=== PATIENT | female | born 1955 | race Caucasian/White ===

== ENCOUNTER 2023-09-04 00:28 | Emergency (ER) | payer MEDICARE, BC ==
--- NOTE | 2023-09-04 00:59 | ED Physician Documentation ---
History of Present Illness - Stated complaint Stated Complaint: NECK PX - Chief complaint Chief Complaint: Trauma Hd/Nk - History obtained from History obtained from: Patient - Additonal information Additional information: 68yF with pmh dm, hld, hypothyroid, p/w progressive neck pain since thursday, worse on R >L without trauma or prior injury. denies numbness, weakness, vision changes, dizziness, hearing loss, nausea, or incoordination. she does state she has had headache on and off. denies fever or confusion PD PAST MEDICAL HISTORY - Past Medical History Cardiovascular: None Respiratory: None Endocrine/Autoimmune: Type 2 diabetes, HyPOthyroidism GI: Hepatitis, Cirrhosis : Renal insuffiency HEENT: None Derm: None - Past Surgical History Past Surgical History: Yes General: Cholecystectomy, Liver surgery - Present Medications Home Medications: Ambulatory Orders Medication Instructions Recorded Confirmed Atorvastatin Calcium [Lipitor] 10 mg PO DAILY 12/16/13 12/16/13 Gabapentin [Neurontin] 300 mg PO HS 12/16/13 12/16/13 Glimepiride [Amaryl] 4 mg PO DAILY 12/16/13 12/16/13 Insulin Glargine,Hum.rec.anlog 10 unit SQ DAILY #1 unit 12/16/13 [Lantus Solostar] Lancets 1 each MC QID #30 each 12/16/13 Levothyroxine Sodium [Synthroid] 125 mcg PO DAILY 12/16/13 12/16/13 Magnesium Oxide 400 mg PO TID 12/16/13 12/16/13 Sirolimus [Rapamune] 1 mg PO DAILY 12/16/13 12/16/13 ursodioL [Actigall] 300 mg PO BID 12/16/13 12/16/13 Oxycodone HCl/Acetaminophen 1 - 2 each PO Q6H PRN #20 tablet 12/31/19 [Percocet 5-325 mg Tablet] methocarbamoL [Robaxin] 500 mg PO Q6H #20 tablet 09/04/23 - Allergies Allergies/Adverse Reactions: Allergies Allergy/AdvReac Type Severity Reaction Status Date / Time No Known Drug Allergies Allergy Verified 09/04/23 00:44 - Social History Does the pt smoke?: No Smoking Status: Never smoker Does the pt drink ETOH?: No Does the pt have substance abuse?: No - Immunizations Immunizations are current?: Yes - POLST Patient has POLST: No PD ED PE NORMAL - Vitals Vital signs reviewed: Yes - General General: Alert and oriented X 3, No acute distress, Well developed/nourished, Other (tearful, elderly appearing) - HEENT HEENT: Atraumatic, PERRL, EOMI, Moist mucous membranes, Pharynx benign - Neck Neck: Supple, no meningeal sign, Other (BL neck ttp in muscle distribution) Results - Vitals Vitals: Vital Signs - 24 hr 09/04/23 00:40 Temperature 36.8 C Heart Rate 80 Respiratory 18 Rate Blood Pressure 109/85 H O2 Saturation 100 Oxygen O2 Source Room air PD Medical Decision Making - ED course ED course: 68yF p/w BL neck pain, right > left for past four days, progressively worsening and refractory to home tylenol. doubt meningitis given no fevers, nuchal rigidity or confusion/obtundation. doubt vertebral dissection given no neuro symptoms. likely muscle strain given muscle distribution of tenderness on exam. IM dilaudid and PO robaxin provided to good effect. plan to send rx to her pharmacy ([facility]). return precautions given. Departure - Departure Disposition: Home, Self Care Clinical Impression: Neck pain Condition: Stable Instructions: ED Neck Pain No Trauma Prescriptions: methocarbamoL [Robaxin] 500 mg PO Q6H #20 tablet Comments: You were seen in the emergency department for medical evaluation of neck pain. Prescription sent electronically to [email or web address]. Please follow-up with your primary care provider and return to the emergency department if you have any new or worsening symptoms or other concerns. Forms: PCP List
[2023-09-04] MEDS: HYDROmorphone 1 MG/ML CARPUJECT IM STA (01:05)
[2023-09-04] MEDS: methocarbamoL 500 MG TABLET PO STA (01:07)
[2023-09-04 01:46] VITALS: BP 139/73; O2SAT 96
== END 2023-09-04 01:43 | disposition home or self-care (01) ==
LOC: ED 00:28
DX: M54.2 Cervicalgia (principal); E11.9 Type 2 diabetes mellitus without complications; Z79.4 Long term (current) use of insulin
CPT/HCPCS: 96372; 99283; A9270; J1170

== ENCOUNTER 2025-04-21 16:12 | Inpatient (IN) ==
--- NOTE | 2025-04-21 17:01 | ED Physician Documentation ---
History of Present Illness Stated complaint Stated Complaint: RT LEG PX/REDNESS, N/V/D Chief complaint Chief Complaint: Abd Pain History obtained from History obtained from: Patient History of Present Illness Pain level max: 9 Pain level now: 7 Additonal information Additional information: Patient is a 70-year-old female who presents to the emergency department with a right leg that is red, swollen and hot. Noticed this morning. Has had vomiting and diarrhea for the past 2 days. Chills but no noted fevers at home. Worse with walking, better with rest. No recent travel. No recent antibiotics. History of a remote liver transplant about 17 years ago. Has not had similar symptoms previously. She is still on her Rapamune at home. Also on Synthroid and atorvastatin and gabapentin. Also on glimepiride. Review of Systems Constitutional Reports: Chills; Denies: Fever Cardiovascular Denies: chest pain or palpitations Respiratory Denies: Cough Gastrointestinal Reports: Nausea, Vomiting and Diarrhea; Denies: Akshat blood emesis, Rectal bleeding, Melena or Blood in stool Meds/Allgy Home Medications Ambulatory Orders Medication Instructions Recorded Confirmed atorvastatin 10 mg tablet (Lipitor) 10 mg PO DAILY 12/16/13 gabapentin 300 mg capsule 300 mg PO HS 12/16/13 glimepiride 4 mg tablet (Amaryl) 4 mg PO DAILY 4 12/16/13 insulin glargine 100 unit/mL (3 10 unit (0.1 mL) SQ DA URIEL #1 unit 12/16/13 mL) subcutaneous pen (Lantus Solostar U-100 Insulin) lancets 21 gauge #30 ea 12/16/13 levothyroxine 125 mcg tablet 125 mcg PO DAILY 12/16/13 12/16/13 (Synthroid) magnesium oxide 400 mg (241.3 mg 400 mg PO TID 4 12/16/13 magnesium) tablet sirolimus 1 mg tablet (Rapamune) 1 mg PO DAILY 4 12/16/13 ursodiol 300 mg capsule (Actigall) 300 mg PO BID 12/1612/16/13 oxycodone-acetaminophen 5 mg-325 1 - 2 ea PO Q6H PRN p ain #20 tabs 12/30/20 mg tablet (Percocet) methocarbamol 500 mg tablet 500 mg PO Q6H #20 tabs 10/22 Allergies Allergies Allergy/AdvReac Type Severity Reaction Status Date / Time No Known Drug Allergies Allergy Verified 04/21/25 16:31 PFSH Active Problems All Active Problems (Updated 04/21/25 @ 18:56 by Jesus Amador MD) History of liver transplant (Acute) Diarrhea (Acute) Chills (Acute) Cellulitis (Acute) Surgical History Surgical History (Updated 04/21/25 @ 18:56 by Jesus Amador MD) Liver transplant recipient Social History Social History Do you feel safe in your home environment?: Yes History of physical, verbal, emotional, or financial abuse?: No POLST Patient has POLST: No Exam Exam Vital Signs: Vital Signs x48h Temp Pulse Resp BP Pulse Ox 04/21/25 17:06 36.8 C 04/21/25 16:31 36.8 C 101 H 18 107/91 H 95 Constitutional normal general appearance and no apparent distress HENMT oropharynx normal moist mucous membranes Eyes PERRL Neck/C-Spine visual inspection normal Respiratory breath sounds equal bilaterally, normal respiratory effort and clear to auscultation bilaterally Cardiovascular normal heart rate noted and regular rhythm noted Gastrointestinal abdomen normal to inspection, abdomen soft to palpation, nontender to palpation and nondistended Genitourinary no CVA tenderness Extremities Right lower extremity is erythematous, swollen, warm to the touch and painful from the knee down to the foot. No crepitus. No drainage Neurology speech normal Psychiatry mental status grossly normal and oriented x3 Skin skin color normal Results Vitals Vitals: Vital Signs - 24 hr 04/21/25 16:31 04/21/25 17:06 Temperature 36.8 C 36.8 C Temperature Source Temporal Artery Scan Oral Pulse Rate 101 H Respiratory Rate 18 Blood Pressure 107/91 H O2 Saturation 95 O2 Source Room air Pain Intensity 10 Oxygen O2 Source Room air Labs Labs: Laboratory Tests 04/21/25 04/21/25 17:08 17:19 WBC 12.3 H RBC 4.73 Hgb 12.8 Hct 41.0 MCV 86.7 MCH 27.1 MCHC 31.2 L RDW 14.2 Plt Count 229 MPV 9.2 Neut # (Auto) 9.8 H Lymph # (Auto) 1.7 Sutter # (Auto) 0.6 Eos # (Auto) 0.0 Baso # (Auto) 0.1 Absolute Nucleated RBC 0.00 Nucleated RBC % 0.0 Sodium 131 L Potassium 3.7 Chloride 98 L Carbon Dioxide 24 Anion Gap 9.0 BUN 30 H Creatinine 1.5 H Estimated GFR (MDRD) 34 L Glucose 131 H Lactic Acid < 0.2 L Calcium 9.7 Total Bilirubin 0.9 AST 18 ALT 14 Alkaline Phosphatase 60 Total Protein 7.8 Albumin 4.2 Globulin 3.6 Albumin/Globulin Ratio 1.2 Lipase 15 Nasal Adenovirus (PCR) NOT DETECTED Nasal B. parapertussis DNA (PCR) NOT DETECTED Nasal Coronavir 229E PCR NOT DETECTED Nasal Coronavir HKU1 PCR NOT DETECTED Nasal Coronavir NL63 PCR NOT DETECTED Nasal Coronavir OC43 PCR NOT DETECTED Nasal Enterovir/Rhinovir PCR NOT DETECTED Nasal Influenza B PCR NOT DETECTED Nasal Influenza A PCR NOT DETECTED Nasal Parainfluen 1 PCR NOT DETECTED Nasal Parainfluen 2 PCR NOT DETECTED Nasal Parainfluen 3 PCR NOT DETECTED Nasal Parainfluen 4 PCR NOT DETECTED Nasal RSV (PCR) NOT DETECTED Nasal B.pertussis DNA PCR NOT DETECTED Nasal C.pneumoniae (PCR) NOT DETECTED Shahid Human Metapneumo PCR NOT DETECTED Nasal M.pneumoniae (PCR) NOT DETECTED Nasal SARS-CoV-2 (PCR) NOT DETECTED PD Medical Decision Making ED course Complexity details: reviewed results, re-evaluated patient, considered differential and d/w patient ED course: Patient with severe diarrhea. No acute findings on chest x-ray. Laboratory testing shows an elevated white blood cell count. Has significant cellulitis of the right lower extremity. C. difficile is pending at the time of signout. CT abdomen pelvis was also performed and is pending at the time of signout. Antibiotics held until the results of the C. difficile testing. Patient will likely need admission for the cellulitis with leukocytosis given her immunocompromise status. Blood cultures drawn. Patient was signed out to Dr. Guerrero, see his note for final disposition. This document was made in part using voice recognition software. While efforts are made to proofread this document, sound alike and grammatical errors may occur. Discharge Plan Discharge Clinical Impression: Chills, History of liver transplant Cellulitis Qualifiers: Site of cellulitis: unspecified site Qualified Code(s): L03.90 - Cellulitis, unspecified Diarrhea Qualifiers: Diarrhea type: unspecified type Qualified Code(s): R19.7 - Diarrhea, unspecified Prescriptions: No Action sirolimus [Rapamune] 1 MG tablet 1 mg PO DAILY glimepiride [Amaryl] 4 MG tablet 4 mg PO DAILY atorvastatin [Lipitor] 10 MG tablet 10 mg PO DAILY levothyroxine [Synthroid] 125 MCG tablet 125 mcg PO DAILY magnesium oxide 400 MG tablet 400 mg PO TID ursodiol [Actigall] 300 MG capsule 300 mg PO BID gabapentin 300 MG capsule 300 mg PO HS insulin glargine [Lantus Solostar U-100 Insulin] 100 UNIT/ML insulin pen 10 unit SQ DAILY Qty: 1 0RF (DME) lancets 1 EACH misc 1 ea miscellaneous QID Qty: 30 0RF oxycodone-acetaminophen [Percocet] 1 EACH tablet 1 - 2 ea PO Q6H PRN (Reason: pain) Qty: 20 0RF methocarbamol 500 MG tablet 500 mg PO Q6H Qty: 20 0RF Print Language: Kyrgyz Stand Alone Forms: PCP List
[2025-04-21] MEDS: SODIUM CHLORIDE 0.9% 1,000 ML IV STA ×2 (17:17)
[2025-04-21] MEDS: ONDANSETRON 4 MG/2 ML VIAL IVP STA (17:19)
[2025-04-21 17:26] LABS: HCT - HEMATOCRIT 41.0 % (37.0-47.0); HGB - HEMOGLOBIN 12.8 g/dL (12.0-16.0); MEAN PLATELET VOLUME 9.2 fL (7.9-10.8); NRBC ABSOLUTE COUNT (AUTO) 0.00 x10^3/uL; NUCLEATED RED BLOOD CELLS AUTO 0.0 /100WBC; PLT - PLATELET COUNT 229 10^3/uL (130-450); RED CELL DISTRIBUTION WIDTH 14.2 % (12.0-15.0)
[2025-04-21 17:34] LABS: ALT ALANINE AMINOTRANSFERASE 14.0 IU/L (10-60); AST ASPARTATE AMINOTRANSFERASE 18.0 IU/L (10-42); BUN - BLOOD UREA NITROGEN 30.0 mg/dL (6-20); CARBON DIOXIDE - CO2 24.0 mmol/L (21-32); CREATININE 1.5 mg/dL (0.6-1.3); GFR - MDRD 34.0 (>89)
--- NOTE | 2025-04-21 18:20 | XRAY Report ---
PROCEDURE: XR Chest 1V INDICATIONS: fever TECHNIQUE: One view of the chest was acquired. COMPARISON: None. FINDINGS: Surgical changes and devices: None. Lungs and pleura: No pleural effusions or pneumothorax. No consolidation. Mediastinum: Mediastinal contours appear normal. Heart size is normal. Bones and chest wall: Mild multilevel degenerative disc disease present. No suspicious bony lesions. Overlying soft tissues appear unremarkable. IMPRESSION: No acute cardiopulmonary process. Reviewed by: Marta Randhawa MD on 04/21/2025 6:17 PM PST Approved by: Marta Randhawa MD on 04/21/2025 6:17 PM PST Station ID: [id number]
[2025-04-21 18:27] LABS: B. PARAPERTUSSIS- RESP PCR PAN NOT DETECTED; B. PERTUSSIS- RESP PCR PANEL NOT DETECTED; C. PNEUMONIAE- RESP PCR PANEL NOT DETECTED; CORONAVIRUS 229E-RESP PCR NOT DETECTED; CORONAVIRUS HKU1-RESP PCR NOT DETECTED; CORONAVIRUS NL63-RESP PCR NOT DETECTED; CORONAVIRUS OC43-RESP PCR NOT DETECTED; HUMAN METAPNEUMOVIRUS NOT DETECTED; INFLUENZA A- RESP PCR PANEL NOT DETECTED; INFLUENZA B - RESP PCR PANEL NOT DETECTED; M. PNEUMONIAE- RESP PCR PANEL NOT DETECTED; PARAINFLUENZA VIRUS 1 NOT DETECTED; PARAINFLUENZA VIRUS 2 NOT DETECTED; PARAINFLUENZA VIRUS 4 NOT DETECTED; RHINOVIRUS/ENTEROVIRUS NOT DETECTED; RSV- RESP PCR PANEL NOT DETECTED; SARS-CoV-2 -RESP PCR PANEL NOT DETECTED
--- NOTE | 2025-04-21 19:20 | CT Report ---
PROCEDURE: CT Abdomen/Pelvis W INDICATIONS: vomting, diarrhea CONTRAST: OMNI 300 100 ML TECHNIQUE: After the administration of intravenous contrast, a CT scan of the abdomen and pelvis was performed. Images were recorded and evaluated at appropriate window settings. Reformats: coronal and sagittal. For radiation dose reduction, the following was used: automated exposure control, adjustment of mA and/or kV according to patient size. COMPARISON: None. FINDINGS: Image quality: Diagnostic. Lower chest: Unremarkable. Small hiatal hernia. Liver: Hepatic steatosis. Gallbladder: Surgically absent. Biliary tree: No intrahepatic or extrahepatic dilation, accounting for age. Spleen: No splenomegaly. Pancreas: No pancreatic ductal dilation. Adrenals: No adrenal nodule. Kidneys and ureters: No hydronephrosis. No renal cystic lesion which requires follow up. No solid mass. Ureters are normal in course and caliber. Stomach, bowel and peritoneum: No gastric or small bowel dilation. No abnormal wall thickening. No pathologic free fluid. No evidence for small bowel obstruction. Normal appendix. Lymph nodes: No central or retroperitoneal adenopathy. Vessels: No infrarenal aortic aneurysm. Patent portal vein. Multiple perisplenic varices. PELVIS Reproductive organs: Unremarkable. Bladder: No abnormal wall thickening. Pelvic lymph nodes: No pelvic adenopathy by size criteria. Bones: No aggressive osseous abnormality. No acute compression fracture. Multilevel spondylosis. Other: Multiple fat-containing ventral abdominal wall hernias without acute inflammation. Findings are noted just inferior to the level of the liver. Mild skin thickening and underlying subcu soft tissue stranding of the right lower abdomen. This may be related to injection sites. No evidence for organized fluid collection. IMPRESSION: CT abdomen and pelvis without acute abnormalities to explain patient's symptoms. No evidence for bowel obstruction. Normal appendix. Multiple fat-containing ventral abdominal wall hernias without acute inflammation. Mild skin thickening and subcutaneous soft tissue stranding of the right lower abdomen possibly related to injection sites versus cellulitis. No evidence for organized fluid collection. Other chronic findings as above. Reviewed by: Eldon Salazar MD on 04/21/2025 7:17 PM PST Approved by: Eldon Salazar MD on 04/21/2025 7:17 PM PST Station ID: [id number]
[2025-04-21] MEDS ORDERED: VANCOMYCIN 1 GM VIAL ONE (19:23)
[2025-04-21] MEDS: VANCOMYCIN INJ 1.5 GM in SODIUM CHLORIDE 0.9% 500 ML IV STA (19:25)
[2025-04-21] MEDS: AMPICILLIN/SULBACTAM 1.5 GM in SODIUM CHLORIDE 0.9% MINIBAG 100 ML IV STA (19:25)
[2025-04-21] MEDS: ACETAMINOPHEN 160 MG/5 ML SUSP UDC PO STA (20:59)
[2025-04-21] MEDS: ACETAMINOPHEN 325 MG TABLET PO STA (21:00)
--- OUTSIDE RECORDS SUMMARY | 2025-04-21 22:29 | EXTERNAL MEDICAL SUMMARY RPT | Continuity of Care Document ---
Author Organization [facility] Address [address] [address] Phone Results/Labs test date facility value unit notes Result panel 1 C DIFF PCR 2025-04-21 17:03 [facility] NEGATIVE (missin g) (missing) Result panel 2 LACTIC ACID, VENOUS 2025-04-21 17:08 [facility] < 0.2 mmol/l N As of November 2022 testing method has changed, this may include reference ranges. NUCLEATED RED BLOOD CELLS AUTO 2025-04-21 17:08 [facility] 0.0 /100wbc (missing) EOSINOPHILS # (AUTO) 2025-04-21 17:08 [facility] 0.0 10 3/ul (missing) NRBC ABSOLUTE COUNT (AUTO) 2025-04-21 17:08 [facility] 0.00 x10 3/ul (missing) BASOPHILS # (AUTO) 2025-04-21 17:08 [facility] 0.1 10 3/ul (missing) MONOCYTES # (AUTO) 2025-04-21 17:08 [facility] 0.6 10 3/ul (missing) BILIRUBIN,TOTAL 2025-04-21 17:08 [facility] 0.9 mg/dl As of November 2022 testing method has changed, this may include reference ranges. ALBUMIN/GLOBULIN RATIO 2025-04-21 17:08 [facility] 1.2 (missing) (missing) CREATININE 2025-04-21 17:08 [facility] 1.5 mg/dl As of November 2022 testing method has changed, this may include reference ranges. LYMPHOCYTES # (AUTO) 2025-04-21 17:08 [facility] 1.7 10 3/ul (missing) WHITE BLOOD COUNT 2025-04-21 17:08 [facility] 12.3 x10 3/ul (missing) HGB - HEMOGLOBIN 2025-04-21 17:08 [facility] 12.8 g/dl (missing) GLUCOSE 2025-04-21 17:08 [facility] 131 mg/dl As of November 2022 testing method has changed, this may include reference ranges. SODIUM 2025-04-21 17:08 [facility] 131 mmol/l (missing) ALT ALANINE AMINOTRANSFERASE 2025-04-21 17:08 [facility] 14 iu/l As of November 2022 testing method has changed, this may include reference ranges. RED CELL DISTRIBUTION WIDTH 2025-04-21 17:08 [facility] 14.2 % (missing) LIPASE 2025-04-21 17:08 [facility] 15 u/l As of November 2022 testing method has changed, this may include reference ranges. AST ASPARTATE AMINOTRANSFERASE 2025-04-21 17:08 [facility] 18 iu/l As of November 2022 testing method has changed, this may include reference ranges. PLT - PLATELET COUNT 2025-04-21 17:08 [facility] 229 10 3/ul (missing) CARBON DIOXIDE - CO2 2025-04-21 17:08 [facility] 24 mmol/l As of November 2022 testing method has changed, this may include reference ranges. MEAN CORPUSCULAR HEMOGLOBIN 2025-04-21 17:08 [facility] 27.1 pg (missing) GLOBULIN 2025-04-21 17:08 [facility] 3.6 g/dl (missing) POTASSIUM 2025-04-21 17:08 [facility] 3.7 mmol/l As of November 2022 testing method has changed, this may include reference ranges. BUN - BLOOD UREA NITROGEN 2025-04-21 17:08 [facility] 30 mg/dl As of November 2022 testing method has changed, this may include reference ranges. MEAN CORPUSCULAR HGB CONC 2025-04-21 17:08 [facility] 31.2 g/dl (missing) GFR - MDRD 2025-04-21 17:08 [facility] 34 (missing) The IDMS-traceable MDRD Study Equation has been validated extensively in and populations between the ages of 18 and 70 with impaired kidney function (eGFR < 60 mL/min/1.73m2) and has shown good performance for patients with all common causes of kidney disease. Although this equation has not been validated for patients older than 70, an MDRD-derived eGFR may still be a useful tool for providers caring for patients older than 70. References: http://www.nkdep. nih.gov/lab-evalu ation/gfr/creatin ine-stand ardization, last updated July 2011. ALBUMIN 2025-04-21 17:08 [facility] 4.2 g/dl As of November 2022 testing method has changed, this may include reference ranges. RED BLOOD COUNT 2025-04-21 17:08 [facility] 4.73 10 6/ul (missing) HCT - HEMATOCRIT 2025-04-21 17:08 [facility] 41.0 % (missing) ALKALINE PHOSPHATASE 2025-04-21 17:08 [facility] 60 iu/l As of November 2022 testing method has changed, this may include reference ranges. TOTAL PROTEIN 2025-04-21 17:08 [facility] 7.8 g/dl As of November 2022 testing method has changed, this may include reference ranges. MEAN CORPUSCULAR VOLUME 2025-04-21 17:08 [facility] 86.7 fl (missing) ANION GAP 2025-04-21 17:08 [facility] 9.0 (missing) (missing) MEAN PLATELET VOLUME 2025-04-21 17:08 [facility] 9.2 fl (missing) CALCIUM 2025-04-21 17:08 [facility] 9.7 mg/dl As of November 2022 testing method has changed, this may include reference ranges. NEUTROPHILS # (AUTO) 2025-04-21 17:08 [facility] 9.8 10 3/ul (missing) CHLORIDE 2025-04-21 17:08 [facility] 98 mmol/l As of November 2022 testing method has changed, this may include reference ranges. Result panel 3 SARS-CoV-2 -RESP PCR PANEL 2025-04-21 17:19 [facility] NOT DETECTED (missing) A negative test result for this test indicates that SARS-CoV-2 RNA was not present in the specimen above the limit of detection. Testing performed on the [employer] RP2.1 Panel, a multiplexed nucleic acid repiratory panel. Negative results do not preclude infection with SARS-CoV-2 virus and should not be the sole basis of a patient management decision. In some patients repeat testing at various time points may be necessary for virus detection. False-negative results may arise from improper sample collection, degradation of viral RNA during shipping or storage, the presence of PCR inhibitors, and/or mutation in the SARS-CoV-2 virus. INFLUENZA A- RESP PCR PANEL 2025-04-21 17:19 [facility] NOT DETECTED (missing) Influenza A including subtypes H1, H3, and H1-2009 not detected by the [employer] RP2.1 Panel, a multiplexed nucleic acid test intended for the simultaneous qualitative detection and differentiation of nucleic acids from multiple viral and bacterial respiratory organisms. B. PARAPERTUSSIS- RESP PCR HAJI 2025-04-21 17:19 [facility] NOT DETECTED (missing) Negative results for this organism do not preclude infection with this organism and may require additional laboratory testing (e.g., bacterial and viral culture, immunofluorescence, and radiography) when evaluating a patient with possible respiratory tract infection. B. PERTUSSIS- RESP PCR PANEL 2025-04-21 17:19 [facility] NOT DETECTED (missing) Negative results for this organism do not preclude infection with this organism and may require additional laboratory testing (e.g., bacterial and viral culture, immunofluorescence, and radiography) when evaluating a patient with possible respiratory tract infection. C. PNEUMONIAE- RESP PCR PANEL 2025-04-21 17:19 [facility] NOT DETECTED (missing) Negative results for this organism do not preclude infection with this organism and may require additional laboratory testing (e.g., bacterial and viral culture, immunofluorescence, and radiography) when evaluating a patient with possible respiratory tract infection. M. PNEUMONIAE- RESP PCR PANEL 2025-04-21 17:19 [facility] NOT DETECTED (missing) Negative results for this organism do not preclude infection with this organism and may require additional laboratory testing (e.g., bacterial and viral culture, immunofluorescence, and radiography) when evaluating a patient with possible respiratory tract infection. CORONAVIRUS 229E-RESP PCR 2025-04-21 17:19 [facility] NOT DETECTED (missing) Negative results in the setting ofa respiratory illness may be due to infection with pathogens not detected by this test, or lower respiratory tract infection that may not be detected by nasopharyngeal specimen. CORONAVIRUS HKU1-RESP PCR 2025-04-21 17:19 [facility] NOT DETECTED (missing) Negative results in the setting ofa respiratory illness may be due to infection with pathogens not detected by this test, or lower respiratory tract infection that may not be detected by nasopharyngeal specimen. CORONAVIRUS AZ33-ZQGT PCR 2025-04-21 17:19 [facility] NOT DETECTED (missing) Negative results in the setting ofa respiratory illness may be due to infection with pathogens not detected by this test, or lower respiratory tract infection that may not be detected by nasopharyngeal specimen. CORONAVIRUS NH83-HZSC PCR 2025-04-21 17:19 [facility] NOT DETECTED (missing) Negative results in the setting ofa respiratory illness may be due to infection with pathogens not detected by this test, or lower respiratory tract infection that may not be detected by nasopharyngeal specimen. HUMAN METAPNEUMOVIRUS 2025-04-21 17:19 [facility] NOT DETECTED (missing) Negative results in the setting ofa respiratory illness may be due to infection with pathogens not detected by this test, or lower respiratory tract infection that may not be detected by nasopharyngeal specimen. INFLUENZA B - RESP PCR PANEL 2025-04-21 17:19 [facility] NOT DETECTED (missing) Negative results in the setting ofa respiratory illness may be due to infection with pathogens not detected by this test, or lower respiratory tract infection that may not be detected by nasopharyngeal specimen. PARAINFLUENZA VIRUS 1 2025-04-21 17:19 [facility] NOT DETECTED (missing) Negative results in the setting ofa respiratory illness may be due to infection with pathogens not detected by this test, or lower respiratory tract infection that may not be detected by nasopharyngeal specimen. PARAINFLUENZA VIRUS 2 2025-04-21 17:19 [facility] NOT DETECTED (missing) Negative results in the setting ofa respiratory illness may be due to infection with pathogens not detected by this test, or lower respiratory tract infection that may not be detected by nasopharyngeal specimen. PARAINFLUENZA VIRUS 3 2025-04-21 17:19 [facility] NOT DETECTED (missing) Negative results in the setting ofa respiratory illness may be due to infection with pathogens not detected by this test, or lower respiratory tract infection that may not be detected by nasopharyngeal specimen. PARAINFLUENZA VIRUS 4 2025-04-21 17:[address] [facility] NOT DETECTED (missing) Negative results in the setting ofa respiratory illness may be due to infection with pathogens not detected by this test, or lower respiratory tract infection that may not be detected by nasopharyngeal specimen. RHINOVIRUS/ENTEROVI REJI 2025-04-21 17:[address] [facility] NOT DETECTED (missing) Negative results in the setting ofa respiratory illness may be due to infection with pathogens not detected by this test, or lower respiratory tract infection that may not be detected by nasopharyngeal specimen. RSV- RESP PCR PANEL 2025-04-21 17:[address] [facility] NOT DETECTED (missing) Negative results in the setting ofa respiratory illness may be due to infection with pathogens not detected by this test, or lower respiratory tract infection that may not be detected by nasopharyngeal specimen. ADENOVIRUS - RESP PCR PANEL 2025-04-21 17:[address] [facility] NOT DETECTED (missing) YES Negative results in the setting ofa respiratory illness may be due to infection with pathogens not detected by this test, or lower respiratory tract infection that may not be detected by nasopharyngeal specimen. Social History date description facility
--- NOTE | 2025-04-21 22:34 | HISTORY & PHYSICAL EXAMINATION ---
Chief Complaint Chief Complaint Chief Complaint: Vomiting, diarrhea, redness in right leg History of Present Illness History of Present Illness HPI Comment/Other: 70 Y old female with PMH Chronic hepatitis C, Cirrhosis of liver s/p liver transplant, DM type 2, hypothyroidism, hyperlipidemia, presented to the ER due to nausea, vomiting, diarrhea for 3 days. C/O abdominal cramps. Pt also c/o right leg redness and swelling which started yesterday. 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 C diff neg CT abdomen /pelvis showed no acute abnormalities CXR neg In ER, pt was given unasyn and vanco Pt is admitted due to right leg cellulitis, nausea, vomiting, diarrhea , gastroenteritis, dehydration, JESSICA Review of Systems Status of ROS: 10 or more systems reviewed and unremarkable except as noted in history and below PFSH Active Problems All Active Problems (Updated 04/21/25 @ 22:26 by ) History of liver transplant (Acute) Diarrhea (Acute) Chills (Acute) Cellulitis (Acute) Surgical History Surgical History (Updated 04/21/25 @ 18:56 by Jesus Amador MD) Liver transplant recipient Social History Social History Do you feel safe in your home environment?: Yes History of physical, verbal, emotional, or financial abuse?: No POLST Patient has POLST: No Meds/Allgy Home Medications Ambulatory Orders Medication Instructions Recorded Confirmed atorvastatin 10 mg tablet (Lipitor) 10 mg PO DAILY 12/16/13 gabapentin 300 mg capsule 300 mg PO HS 12/16/13 glimepiride 4 mg tablet (Amaryl) 4 mg PO DAILY 4 12/16/13 insulin glargine 100 unit/mL (3 10 unit (0.1 mL) SQ DA URIEL #1 unit 12/16/13 mL) subcutaneous pen (Lantus Solostar U-100 Insulin) lancets 21 gauge #30 ea 12/16/13 levothyroxine 125 mcg tablet 125 mcg PO DAILY 12/16/13 12/16/13 (Synthroid) magnesium oxide 400 mg (241.3 mg 400 mg PO TID 4 12/16/13 magnesium) tablet sirolimus 1 mg tablet (Rapamune) 1 mg PO DAILY 4 12/16/13 ursodiol 300 mg capsule (Actigall) 300 mg PO BID 12/1612/16/13 oxycodone-acetaminophen 5 mg-325 1 - 2 ea PO Q6H PRN p ain #20 tabs 12/31/19 mg tablet (Percocet) methocarbamol 500 mg tablet 500 mg PO Q6H #20 tabs 10/22 Allergies Allergies Allergy/AdvReac Type Severity Reaction Status Date / Time No Known Drug Allergies Allergy Verified 04/21/25 16:31 Exam Exam Vital Signs: Vital Signs x48h Temp Pulse Resp BP Pulse Ox 04/21/25 21:00 36.8 C 91 20 104/89 94 04/21/25 19:37 96 16 154/73 H 97 04/21/25 17:06 36.8 C 04/21/25 16:31 36.8 C 101 H 18 107/91 H 95 Constitutional normal general appearance HENMT normocephalic Eyes PERRL Chest inspection of chest normal Respiratory breath sounds equal bilaterally Cardiovascular normal heart rate noted Gastrointestinal abdomen normal to inspection Extremities Redness and swelling in right leg Neurology no focal motor deficit noted Skin Redness and swelling in right leg Conclusion/Plan Problem List (1) Cellulitis: Plan: A: Cellulitis of right leg Acute gastroenteritis Dehydration JESSICA DM type 2 Hyperlipidemia Hypothyroidiosm Chronic hepatitis C H/O liver cirrhosis s/p liver transplant Plan: Admit to med surg with tele Follow cultures Strat zosyn and vanco Repeat CBC, CMP in am Start NS @ 100 cc/h Cont lantus 30 units bid Start insulin sliding scale Cont levothyroxine DVT prophylaxic: Heparin sq Full code Pt is admitted as inpatient as more than 2 midnight stay is expected Qualifiers: Site of cellulitis: unspecified site Qualified Code(s): L03.90 - Cellulitis, unspecified Lab Results 04/21/25 17:08 04/21/25 17:08
--- NOTE | 2025-04-21 22:53 | ED Physician Documentation ---
ED Addendum Addendum Addendum: This patient was handed off to me at [address] Adam Amador. I followed up on her CT imaging which showed no concerning features of in her abdomen that may contribute to her story tonight. C. difficile testing negative. I gave her initial dose of Vanco and Unasyn, and ultimately she was admitted to the hospitalist team for observation, further treatment of her cellulitis given her immunocompromise status. Discharge Plan Discharge Patient Disposition: [facility] DC/Xfer Condition: Stable Clinical Impression: Chills, History of liver transplant Cellulitis Qualifiers: Site of cellulitis: unspecified site Qualified Code(s): L03.90 - Cellulitis, unspecified Diarrhea Qualifiers: Diarrhea type: unspecified type Qualified Code(s): R19.7 - Diarrhea, unspecified
[2025-04-22] MEDS: PIPERACILLIN/TAZOBACTAM 3.375 GM in SODIUM CHLORIDE 0.9% MINIBAG 100 ML IV SCH ×3 (00:12→20:53)
[2025-04-22] MEDS ORDERED: SODIUM CHLORIDE FLUSH 0.9% 10 ML SYRINGE IVP PRN (01:20)
[2025-04-22] MEDS: SODIUM CHLORIDE 0.9% 1,000 ML IV SCH (01:21)
[2025-04-22] MEDS: SODIUM CHLORIDE FLUSH 0.9% 10 ML SYRINGE IVP SCH (01:22)
[2025-04-22 03:54] LABS: GLUCOSE, URINE (UA) NEGATIVE (NEGATIVE); KETONES,URINE (UA) NEGATIVE (NEGATIVE); OCCULT BLOOD,URINE MODERATE (NEGATIVE)
[2025-04-22 03:55] LABS: SQUAMOUS EPITHELIAL CELL,UR RARE Squamous (<= Few)
[2025-04-22] MEDS ORDERED: MORPHINE 2 MG/ML CARPUJECT ONE (06:01)
[2025-04-22] MEDS: MORPHINE 2 MG/ML CARPUJECT IVP STA (06:05)
[2025-04-22] MEDS: LEVOTHYROXINE 88 MCG TABLET PO SCH (06:16)
[2025-04-22 06:33] LABS: HCT - HEMATOCRIT 39.1 % (37.0-47.0); HGB - HEMOGLOBIN 11.9 g/dL (12.0-16.0); MEAN PLATELET VOLUME 9.3 fL (7.9-10.8); NRBC ABSOLUTE COUNT (AUTO) 0.00 x10^3/uL; NUCLEATED RED BLOOD CELLS AUTO 0.0 /100WBC; PLT - PLATELET COUNT 202 10^3/uL (130-450); RED CELL DISTRIBUTION WIDTH 14.3 % (12.0-15.0)
[2025-04-22 06:49] LABS: ALT ALANINE AMINOTRANSFERASE 12.0 IU/L (10-60); AST ASPARTATE AMINOTRANSFERASE 19.0 IU/L (10-42); BUN - BLOOD UREA NITROGEN 24.0 mg/dL (6-20); CARBON DIOXIDE - CO2 23.0 mmol/L (21-32); CREATININE 1.4 mg/dL (0.6-1.3); GFR - MDRD 37.0 (>89)
[2025-04-22] MEDS: INSULIN GLARGINE-YFGN 300 UNIT/3 ML PEN SUBQ SCH (09:21)
[2025-04-22] MEDS: HEPARIN 5,000 UNIT/ML VIAL SUBQ SCH (09:22)
[2025-04-22] MEDS: INSULIN LISPRO 300 UNIT/3 ML PEN SUBQ SCH (09:27)
[2025-04-22] MEDS: oxyCODONE 5 MG TABLET PO PRN (09:40)
--- NOTE | 2025-04-22 10:03 | PHARMACY PROGRESS NOTE ---
Best Possible Medication History Admit Date and Time: 04/21/252208 Home Medications Medication Instructions Recorded Confirmed Type lancets 21 gauge #30 ea 12/16/13 Rx sirolimus 1 mg tablet (Rapamune) 1 mg PO DAILY 4 04/22/25 History fenofibrate 54 mg tablet 54 mg PO QPM 04/22/25 History gabapentin 800 mg tablet 800 mg PO BID 04/22/2504/22 History insulin glargine 100 unit/mL (3 30 unit SQ BID 5 04/22/25 History mL) subcutaneous pen (Lantus Solostar U-100 Insulin) insulin lispro 100 unit/mL 1 - 15 unit subcut TIDWM 04/22/25 History subcutaneous solution (Humalog U-100 Insulin) levothyroxine 88 mcg tablet 88 mcg PO QDAC 04/22/25 History (Synthroid) pravastatin 40 mg tablet 40 mg PO QPM 04/22/25 History Processed by: Pharmacy Medications reviewed in ED?: No Medication History completed: Yes Patient Interview: Completed Secondary Source(s): Spouse/Significant other, Pharmacy records and Insurance records [facility] Statement: As the person ultimately responsible for medication therapy, providers are able to order a medication from an existing home medication list in [facility] via the "Reconcile Routine" prior to Confirmation of that medication by ground support agent. Such practice is discouraged except when the physician, in their clinical judgment, deems that a medical need exists for a medication without regard to previous use.
--- NOTE | 2025-04-22 10:09 | PHARMACY PROGRESS NOTE ---
Vancomycin Therapy Monitoring Patient Information Vancomycin Pt Height (inches): 66.5 Vancomycin Patient Weight (kg): 79.5 Vanco Rx Serum Creatinine (mg/dL): 1.4 Concurrent Antibiotics: ZOSYN Vancomycin Therapy Goals Vancomycin Target Range: Vancomycin AUC Target Range 400-600 mcg*h/ml Assessment of Current Therapy Vancomycin Loading Dose (GM, if applicable): 1.5 GRAMS IV GIVEN IN ER Current Vancomycin Maintenance Regimen (if applicable): 1.25 GRAMS IV EVERY 24 HOURS Estimated Cmax (Peak, mcg/ml): 31.2 Estimated Cmin (Trough, mcg/ml): 16.2 Estimated AUC (mcg*hr/ml): 550 Plan: Pharmacy recommendation: Continue current regimen Vancomycin Level Recommendation: Level not necessary at this time Areas for additonal monitoring Areas for additional monitoring: IV to PO when appropriate, Therapy de- escalation based on culture results and Acute Kidney Injury
--- NOTE | 2025-04-22 14:31 | PROVIDER PROGRESS NOTE ---
Subjective Prog Note Date Prog Note Date: 04/22/25 Subjective Pt reports feeling: Improved Subjective: Still with significant pain in her cellulitic leg Current Medications Current Medications Current Medications: Current Medications Generic Name Dose Route Start Last Admin Trade Name Freq PRN Reason Stop Dose Admin Acetaminophen 650 mg 04/22/25 01:20 Acetaminophen 325 Mg Tablet PO Q4HR PRN Pain 1 to 4, or Fever Heparin Sodium (Porcine) 5,000 unit 04/22/25 09:00 04/22/25 09:33 Heparin 5,000 Unit/Ml Vial SUBQ Not Given BID HERLINDA Sodium Chloride 1,000 mls @ 100 mls/hr 04/22/25 01:20 04/22/25 01:21 Normal Saline 0.9% IV 100 mls/hr .Q10H HERLINDA Administration Piperacillin Sod/Tazobactam 100 mls @ 25 mls/hr 04/22/25 09:00 04/22/25 09:23 Sod 3.375 gm/ Sodium Chloride IV 25 mls/hr Q8H HERLINDA Administration Vancomycin HCl 1 gm/ 250 mls @ 167 mls/hr 04/22/25 18:00 Vancomycin HCl 250 mg/ Sodium IV Chloride Q24H HERLINDA Insulin Glargine-yfgn 30 unit 04/22/25 09:00 04/22/25 09:21 Insulin Glargine-Yfgn 300 Unit/3 Ml Pen SUBQ 30 unit BID HERLINDA Administration Insulin Human Lispro 1 - 9 unit 04/22/25 08:00 04/22/25 12:32 Insulin Lispro 300 Unit/3 Ml Pen SUBQ 1 unit 0800,1200,1700,2100 HERLINDA Administration Protocol Levothyroxine Sodium 88 mcg 04/22/25 07:00 04/22/25 06:16 Levothyroxine 88 Mcg Tablet PO 88 mcg QDAC HERLINDA Administration Ondansetron HCl 4 mg 04/22/25 01:20 Ondansetron 4 Mg/2 Ml Vial IVP Q6HR PRN Nausea / Vomiting Oxycodone HCl 5 mg 04/22/25 09:13 04/22/25 09:40 Oxycodone 5 Mg Tablet PO 5 mg Q4HR PRN Administration Moderate Pain (Level 4-6) Patient Own Medication 1 each 04/22/25 09:00 04/22/25 09:39 Patient Own Med PO 1 each DAILY HERLINDA Administration Sodium Chloride 10 ml 04/22/25 01:20 Sodium Chloride Flush 0.9% 10 Ml Syringe IVP PRN PRN NEEDED PER PROVIDER ORDERS Sodium Chloride 10 ml 04/22/25 01:20 04/22/25 09:33 Sodium Chloride Flush 0.9% 10 Ml Syringe IVP Not Given 0100,0900,1700 [facility] Objective Vital Signs/Intake & Output Reviewed Vital Signs: Yes Vital Signs: Vital Signs x48h Temp Pulse Resp BP Pulse Ox 04/22/25 11:40 97.7 F 78 18 122/58 L 95 04/22/25 07:44 97.9 F 74 16 128/60 97 Intake & Output: Intake & Output 04/19/25 04/20/25 04/21/25 04/22/25 23:59 23:59 23:59 23:59 Intake Total 1600 / 1600 440 / 440 Output Total 500 / 500 Balance 1600 / 1600 -60 / -60 Weight (kg) 78.471 kg 79.5 kg Objective General Appearance: positive No acute distress and Alert Eyes Bilateral: positive Normal inspection ENT: positive ENT inspection nml Neck: positive Nml inspection Respiratory: positive Chest non-tender Cardiovascular: positive Regular rate & rhythm Abdomen: positive Non-tender Skin: positive Other (Cellulitic rash RLE) Neurologic/Psychiatric: positive Oriented x3 Lab Results 04/22/25 06:10 04/22/25 06:10 Other Labs: Lab Results x24hrs 04/22/25 04/22/25 04/22/25 Range/Units 11:37 07:36 06:10 WBC 13.4 H (4.8-10.8) x10^3/uL RBC 4.43 (4.20-5.40) 10^6/uL Hgb 11.9 L (12.0-16.0) g/dL Hct 39.1 (37.0-47.0) % MCV 88.3 (81.0-99.0) fL MCH 26.9 L (27.0-31.0) pg MCHC 30.4 L (32.0-36.0) g/dL RDW 14.3 (12.0-15.0) % Plt Count 202 (130-450) 10^3/uL MPV 9.3 (7.9-10.8) fL Neut # (Auto) 9.6 H (1.5-6.6) 10^3/uL Lymph # (Auto) 2.8 (1.5-3.5) 10^3/uL [place] # (Auto) 0.9 (0.0-1.0) 10^3/uL Eos # (Auto) 0.1 (0.0-0.7) 10^3/uL Baso # (Auto) 0.0 (0.0-0.1) 10^3/uL Absolute Nucleated RBC 0.00 x10^3/uL Nucleated RBC % 0.0 /100WBC Sodium 136 (135-145) mmol/L Potassium 4.4 (3.5-4.5) mmol/L Chloride 105 (101-111) mmol/L Carbon Dioxide 23 (21-32) mmol/L Anion Gap 8.0 (6-13) BUN 24 H (6-20) mg/dL Creatinine 1.4 H (0.6-1.3) mg/dL Estimated GFR (MDRD) 37 L (>89) Glucose 116 H (74-104) mg/dL POC Whole Bld Glucose 151 101 (70-100) mg/dL Lactic Acid (0.5-2.2) mmol/L Calcium 9.2 (8.5-10.3) mg/dL Total Bilirubin 0.9 (0.2-1.0) mg/dL AST 19 (10-42) IU/L ALT 12 (10-60) IU/L Alkaline Phosphatase 57 (42-121) IU/L Total Protein 7.0 (6.4-8.9) g/dL Albumin 3.8 (3.2-5.5) g/dL Globulin 3.2 (2.1-4.2) g/dL Albumin/Globulin Ratio 1.2 (1.0-2.2) Lipase (11-82) U/L Urine Color Urine Clarity (CLEAR) Urine pH (5.0-7.5) PH Ur Specific Harwood (1.002-1.030) Urine Protein (NEGATIVE) mg/dL Urine Glucose (UA) (NEGATIVE) mg/dL Urine Ketones (NEGATIVE) mg/dL Urine Occult Blood (NEGATIVE) Urine Nitrite (NEGATIVE) Urine Bilirubin (NEGATIVE) Urine Urobilinogen (NORMAL) E.U./dL Ur Leukocyte Esterase (NEGATIVE) Urine RBC (0-5) /HPF Urine WBC (0-5) /HPF Ur Squamous Epith Cells (<= Few) Urine Bacteria (None Seen) /HPF Ur Microscopic Review Urine Culture Comments Nasal Adenovirus (PCR) Nasal B. parapertussis DNA (PCR) Nasal Coronavir 229E PCR Nasal Coronavir HKU1 PCR Nasal Coronavir NL63 PCR Nasal Coronavir OC43 PCR Nasal Enterovir/Rhinovir PCR Nasal Influenza B PCR Nasal Influenza A PCR Nasal Parainfluen 1 PCR Nasal Parainfluen 2 PCR Nasal Parainfluen 3 PCR Nasal Parainfluen 4 PCR Nasal RSV (PCR) Nasal B.pertussis DNA PCR Nasal C.pneumoniae (PCR) Shahid Human Metapneumo PCR Nasal M.pneumoniae (PCR) Nasal SARS-CoV-2 (PCR) Stl C. diff Tox B Gene (NEGATIVE) 04/22/25 04/21/25 04/21/25 Range/Units 03:15 17:19 17:08 WBC 12.3 H (4.8-10.8) x10^3/uL RBC 4.73 (4.20-5.40) 10^6/uL Hgb 12.8 (12.0-16.0) g/dL Hct 41.0 (37.0-47.0) % MCV 86.7 (81.0-99.0) fL MCH 27.1 (27.0-31.0) pg MCHC 31.2 L (32.0-36.0) g/dL RDW 14.2 (12.0-15.0) % Plt Count 229 (130-450) 10^3/uL MPV 9.2 (7.9-10.8) fL Neut # (Auto) 9.8 H (1.5-6.6) 10^3/uL Lymph # (Auto) 1.7 (1.5-3.5) 10^3/uL [place] # (Auto) 0.6 (0.0-1.0) 10^3/uL Eos # (Auto) 0.0 (0.0-0.7) 10^3/uL Baso # (Auto) 0.1 (0.0-0.1) 10^3/uL Absolute Nucleated RBC 0.00 x10^3/uL Nucleated RBC % 0.0 /100WBC Sodium 131 L (135-145) mmol/L Potassium 3.7 (3.5-4.5) mmol/L Chloride 98 L (101-111) mmol/L Carbon Dioxide 24 (21-32) mmol/L Anion Gap 9.0 (6-13) BUN 30 H (6-20) mg/dL Creatinine 1.5 H (0.6-1.3) mg/dL Estimated GFR (MDRD) 34 L (>89) Glucose 131 H (74-104) mg/dL POC Whole Bld Glucose (70-100) mg/dL Lactic Acid < 0.2 L (0.5-2.2) mmol/L Calcium 9.7 (8.5-10.3) mg/dL Total Bilirubin 0.9 (0.2-1.0) mg/dL AST 18 (10-42) IU/L ALT 14 (10-60) IU/L Alkaline Phosphatase 60 (42-121) IU/L Total Protein 7.8 (6.4-8.9) g/dL Albumin 4.2 (3.2-5.5) g/dL Globulin 3.6 (2.1-4.2) g/dL Albumin/Globulin Ratio 1.2 (1.0-2.2) Lipase 15 (11-82) U/L Urine Color YELLOW Urine Clarity CLEAR (CLEAR) Urine pH 6.0 (5.0-7.5) PH Ur Specific Harwood 1.010 (1.002-1.030) Urine Protein NEGATIVE (NEGATIVE) mg/dL Urine Glucose (UA) NEGATIVE (NEGATIVE) mg/dL Urine Ketones NEGATIVE (NEGATIVE) mg/dL Urine Occult Blood MODERATE (NEGATIVE) Urine Nitrite NEGATIVE (NEGATIVE) Urine Bilirubin NEGATIVE (NEGATIVE) Urine Urobilinogen 0.2 (NORMAL) (NORMAL) E.U./dL Ur Leukocyte Esterase NEGATIVE (NEGATIVE) Urine RBC 0-5 (0-5) /HPF Urine WBC 0-3 (0-5) /HPF Ur Squamous Epith Cells RARE Squamous (<= Few) Urine Bacteria Rare (None Seen) /HPF Ur Microscopic Review INDICATED Urine Culture Comments NOT INDICATED Nasal Adenovirus (PCR) NOT DETECTED Nasal B. parapertussis DNA (PCR) NOT DETECTED Nasal Coronavir 229E PCR NOT DETECTED Nasal Coronavir HKU1 PCR NOT DETECTED Nasal Coronavir NL63 PCR NOT DETECTED Nasal Coronavir OC43 PCR NOT DETECTED Nasal Enterovir/Rhinovir PCR NOT DETECTED Nasal Influenza B PCR NOT DETECTED Nasal Influenza A PCR NOT DETECTED Nasal Parainfluen 1 PCR NOT DETECTED Nasal Parainfluen 2 PCR NOT DETECTED Nasal Parainfluen 3 PCR NOT DETECTED Nasal Parainfluen 4 PCR NOT DETECTED Nasal RSV (PCR) NOT DETECTED Nasal B.pertussis DNA PCR NOT DETECTED Nasal C.pneumoniae (PCR) NOT DETECTED Shahid Human Metapneumo PCR NOT DETECTED Nasal M.pneumoniae (PCR) NOT DETECTED Nasal SARS-CoV-2 (PCR) NOT DETECTED Stl C. diff Tox B Gene (NEGATIVE) 04/21/25 Range/Units 17:03 WBC (4.8-10.8) x10^3/uL RBC (4.20-5.40) 10^6/uL Hgb (12.0-16.0) g/dL Hct (37.0-47.0) % MCV (81.0-99.0) fL MCH (27.0-31.0) pg MCHC (32.0-36.0) g/dL RDW (12.0-15.0) % Plt Count (130-450) 10^3/uL MPV (7.9-10.8) fL Neut # (Auto) (1.5-6.6) 10^3/uL Lymph # (Auto) (1.5-3.5) 10^3/uL [place] # (Auto) (0.0-1.0) 10^3/uL Eos # (Auto) (0.0-0.7) 10^3/uL Baso # (Auto) (0.0-0.1) 10^3/uL Absolute Nucleated RBC x10^3/uL Nucleated RBC % /100WBC Sodium (135-145) mmol/L Potassium (3.5-4.5) mmol/L Chloride (101-111) mmol/L Carbon Dioxide (21-32) mmol/L Anion Gap (6-13) BUN (6-20) mg/dL Creatinine (0.6-1.3) mg/dL Estimated GFR (MDRD) (>89) Glucose (74-104) mg/dL POC Whole Bld Glucose (70-100) mg/dL Lactic Acid (0.5-2.2) mmol/L Calcium (8.5-10.3) mg/dL Total Bilirubin (0.2-1.0) mg/dL AST (10-42) IU/L ALT (10-60) IU/L Alkaline Phosphatase (42-121) IU/L Total Protein (6.4-8.9) g/dL Albumin (3.2-5.5) g/dL Globulin (2.1-4.2) g/dL Albumin/Globulin Ratio (1.0-2.2) Lipase (11-82) U/L Urine Color Urine Clarity (CLEAR) Urine pH (5.0-7.5) PH Ur Specific Harwood (1.002-1.030) Urine Protein (NEGATIVE) mg/dL Urine Glucose (UA) (NEGATIVE) mg/dL Urine Ketones (NEGATIVE) mg/dL Urine Occult Blood (NEGATIVE) Urine Nitrite (NEGATIVE) Urine Bilirubin (NEGATIVE) Urine Urobilinogen (NORMAL) E.U./dL Ur Leukocyte Esterase (NEGATIVE) Urine RBC (0-5) /HPF Urine WBC (0-5) /HPF Ur Squamous Epith Cells (<= Few) Urine Bacteria (None Seen) /HPF Ur Microscopic Review Urine Culture Comments Nasal Adenovirus (PCR) Nasal B. parapertussis DNA (PCR) Nasal Coronavir 229E PCR Nasal Coronavir HKU1 PCR Nasal Coronavir NL63 PCR Nasal Coronavir OC43 PCR Nasal Enterovir/Rhinovir PCR Nasal Influenza B PCR Nasal Influenza A PCR Nasal Parainfluen 1 PCR Nasal Parainfluen 2 PCR Nasal Parainfluen 3 PCR Nasal Parainfluen 4 PCR Nasal RSV (PCR) Nasal B.pertussis DNA PCR Nasal C.pneumoniae (PCR) Shahid Human Metapneumo PCR Nasal M.pneumoniae (PCR) Nasal SARS-CoV-2 (PCR) Stl C. diff Tox B Gene NEGATIVE (NEGATIVE) Assessment/Plan Problem List (1) Sepsis: Impression: Met sepsis criteria on presentation with heart rate of 101 and WBC 12.3. Has acute kidney injury, indicating severe sepsis Cellulitis is a source of infection Was started on Vanco and Zosyn, will continue these Follow blood cultures VSS Continue NS at 100 (2) Cellulitis: Impression: Cellulitic rash on right lower extremity. This is most likely source of her sepsis Antibiotics as above She would likely benefit from extended course given she is a liver transplant patient Qualifiers: Site of cellulitis: unspecified site Qualified Code(s): L03.90 - Cellulitis, unspecified (3) History of liver transplant: Impression: Continuing her antirejection medication regimen (4) Diabetes mellitus: Impression: SSI
[2025-04-22] MEDS: PIPERACILLIN/TAZOBACTAM 3.375 GM in SODIUM CHLORIDE 0.9% MINIBAG 100 ML IV ONE (16:55)
[2025-04-22] MEDS: VANCOMYCIN INJ 1 GM, VANCOMYCIN INJ 250 MG in SODIUM CHLORIDE 0.9% 250 ML IV SCH (18:10)
[2025-04-22] MEDS ORDERED: VANCOMYCIN INJ 1 GM in SODIUM CHLORIDE 0.9% 250 ML IV SCH (20:00)
[2025-04-22] MEDS: PRAVASTATIN 40 MG TABLET PO SCH (21:52)
[2025-04-22] MEDS: GABAPENTIN 400 MG CAPSULE PO SCH (21:52)
[2025-04-23 11:20] LABS: HCT - HEMATOCRIT 35.7 % (37.0-47.0); HGB - HEMOGLOBIN 11.5 g/dL (12.0-16.0); MEAN PLATELET VOLUME 9.3 fL (7.9-10.8); PLT - PLATELET COUNT 164.0 10^3/uL (130-450); RED CELL DISTRIBUTION WIDTH 14.5 % (12.0-15.0)
[2025-04-23 11:35] LABS: BUN - BLOOD UREA NITROGEN 20.0 mg/dL (6-20); CARBON DIOXIDE - CO2 19.0 mmol/L (21-32); CREATININE 1.4 mg/dL (0.6-1.3); GFR - MDRD 37.0 (>89)
--- NOTE | 2025-04-23 14:12 | Discharge Summary ---
Discharge Summary Admit Date: 04/21/25 Discharge Date: 04/23/25 Discharging Provider: Tyrese Leonard Primary Care Provider: Domenico Jean Code Status: Attempt Resuscitation DIAGNOSES Discharge Diagnoses with Status of Each Condition: Sepsissecondary to cellulitis, resolved Cellulitis of leg without foot Improving, discharged on Augmentin Gastroenteritisimproving AKII believe that her creatinine is at a new baseline Hypothyroidchronic Hyperlipidemiachronic Chronic hepatitis Cchronic Liver transplant statuschronic HPI History of Present Illness: 70 Y old female with PMH Chronic hepatitis C, Cirrhosis of liver s/p liver transplant, DM type 2, hypothyroidism, hyperlipidemia, presented to the ER due to nausea, vomiting, diarrhea for 3 days. C/O abdominal cramps. Pt also c/o right leg redness and swelling which started yesterday. Denies fever, LONG, chest pain, SOB, symptoms Labs showed leukocytosis, Corn Detasseler 1.5. C diff neg CT abdomen /pelvis showed no acute abnormalities CXR neg In ER, pt was given unasyn and vanco Pt is admitted due to right leg cellulitis, nausea, vomiting, diarrhea , gastroenteritis, dehydration, [facility] Hospital Course: Patient was admitted to the hospital and started on broad-spectrum antibiotic coverage with Zosyn and vancomycin. Her blood cultures are no growth to date, and her white blood cell count is 10.4 this morning. Her leg looks somewhat better, not as swollen and the area of redness is receding. She has been afebrile. She is discharging with a course of Augmentin and has been encouraged to follow-up with her primary care provider ALLERGIES Allergies Allergy/AdvReac Type Severity Reaction Status Date / Time No Known Drug Allergies Allergy Verified 04/21/25 16:31 MEDICATIONS Ambulatory Orders Medication Instructions Recorded Confirmed lancets 21 gauge #30 ea 12/16/13 sirolimus 1 mg tablet (Rapamune) 1 mg PO DAILY 4 04/22/25 fenofibrate 54 mg tablet 54 mg PO QPM 04/22/25 gabapentin 800 mg tablet 800 mg PO BID 04/22/2504/22 insulin glargine 100 unit/mL (3 30 unit SQ BID 5 04/22/25 mL) subcutaneous pen (Lantus Solostar U-100 Insulin) insulin lispro 100 unit/mL 1 - 15 unit subcut TIDWM 04/22/25 subcutaneous solution (Humalog U-100 Insulin) levothyroxine 88 mcg tablet 88 mcg PO QDAC 04/22/25 (Synthroid) pravastatin 40 mg tablet 40 mg PO QPM 04/22/25 Augmentin 875 mg-potassium 1 tab PO BID 5 days #10 tab s 04/23/25 clavulanate 125 mg tablet oxycodone 5 mg tablet 5 mg PO TID PRN pain #20 tab s 04/23/25 PHYSICAL EXAM AT DISCHARGE Vital Signs: Vital Signs x48h Temp Pulse Resp BP Pulse Ox 04/23/25 14:55 98.4 F 70 16 125/57 L 98 04/23/25 12:10 97.3 F L 67 18 111/57 L 96 Physical Exam Other/Comments: General Appearance: positive No acute distress and Alert Eyes Bilateral: positive Normal inspection ENT: positive ENT inspection nml Neck: positive Nml inspection Respiratory: positive Chest non-tender Cardiovascular: positive Regular rate & rhythm Abdomen: positive Non-tender Skin: positive Other (Cellulitic rash RLE) Neurologic/Psychiatric: positive Oriented x3 LABS 04/23/25 11:15 04/23/25 11:15 FOLLOW UP Follow Up: With PCP TIME SPENT Time Spent in Discharge (Minutes): 35 Discharge Plan Discharge Patient Disposition: 01 Home, Self Care Condition: Stable Prescriptions: New amoxicillin-pot clavulanate 875-125 mg tablet 1 tab PO BID 5 Days Qty: 10 0RF oxycodone 5 mg tablet 5 mg PO TID PRN (Reason: pain) Qty: 20 0RF Continued sirolimus [Rapamune] 1 MG tablet 1 mg PO DAILY (DME) lancets 1 EACH misc 1 ea miscellaneous QID Qty: 30 0RF pravastatin 40 mg tablet 40 mg PO QPM levothyroxine [Synthroid] 88 mcg tablet 88 mcg PO QDAC insulin lispro [Humalog U-100 Insulin] 100 unit/mL solution 1 - 15 unit subcut TIDWM fenofibrate 54 mg tablet 54 mg PO QPM gabapentin 800 mg tablet 800 mg PO BID insulin glargine [Lantus Solostar U-100 Insulin] 100 UNIT/ML insulin pen 30 unit SQ BID Activity Restrictions: No Restrictions Diet: Diabetic Health Concerns: You are being discharged after treatment for cellulitis (a skin infection) that led to sepsis. You will continue taking Augmentin (amoxicillin/clavulanate) at home. Medications: * Take Augmentin exactly as prescribed. Do not skip doses, and finish the entire course, even if you feel better. Wound and Skin Care: * Keep the affected area clean and dry. * Elevate the limb if possible to reduce swelling. * Watch for increased redness, swelling, pain, warmth, pus, or streaksthese may mean the infection is worsening. Diabetes Management: * Monitor your blood sugar closely, as infections and antibiotics can affect glucose levels. * Take insulin and other diabetes medications as directed. * Contact your healthcare provider if you notice high or low blood sugars that are hard to control. Liver Transplant Considerations: * Report any yellowing of the skin or eyes, dark urine, or severe fatigue, as Augmentin can rarely affect liver function. * Continue taking your anti-rejection medications as prescribed. General Precautions: * If you develop fever, chills, confusion, or feel very unwell, seek medical attention immediately. * If diarrhea occurs, especially if severe or bloody, contact your provider, as this can be a sign of a serious infection called C. difficile. * Avoid contact sports or activities that could injure the affected area until fully healed. Follow-Up: * Schedule a follow-up appointment as directed. * If you do not see improvement in your skin infection after 5 days, or if symptoms worsen, contact your healthcare provider. When to Seek Help: * Trouble breathing, swelling of the face or throat, severe rash, or sudden severe illnesscall 911 or go to the emergency room. Questions: * If you have any questions about your medications or care, contact your healthcare team. Remember: * Take all medications as prescribed. * Monitor your blood sugar and report any changes. * Watch for signs of worsening infection or medication side effects. You have received tonight's dose of Augmentin prior to discharge. Your next dose will be tomorrow morning Wishing you a safe and speedy recovery. Print Language: Bur[place]ian Patient Instructions: Cellulitis Dc Stand Alone Forms: PCP List Follow-up Care: DOMENICO JEAN MD [Primary Care Provider, Family Practice] Vitals documented within 30 minutes of discharge?: Yes
[2025-04-23] MEDS: AMOX/CLAV 875 MG/125 MG TABLET PO STA (14:41)
[2025-04-23] MEDS: ONDANSETRON 4 MG/2 ML VIAL IVP PRN (14:44)
[2025-04-23] MEDS: ACETAMINOPHEN 325 MG TABLET PO PRN (14:45)
[2025-04-23 16:16] VITALS: BP 125/57; TEMP 98.4; O2SAT 98
[2025-04-23] MEDS ORDERED: FENOFIBRATE 48 MG TABLET PO SCH (21:00)
== END 2025-04-23 15:10 | disposition home or self-care (01) | DRG 872 ==
LOC: ED 16:12 → MS3 22:09
PROVIDERS: ADMIT Internal Medicine; ATTEND Internal Medicine
DX: D84.9 Immunodeficiency, unspecified; R11.2 Nausea with vomiting, unspecified; E03.9 Hypothyroidism, unspecified; Z79.899 Other long term (current) drug therapy; R19.7 Diarrhea, unspecified; B18.2 Chronic viral hepatitis C; A41.9 Sepsis, unspecified organism; L03.115 Cellulitis of right lower limb; K52.9 Noninfective gastroenteritis and colitis, unspecified; E78.5 Hyperlipidemia, unspecified; Z79.4 Long term (current) use of insulin; R65.20 Severe sepsis without septic shock; E86.0 Dehydration; Z94.4 Liver transplant status; N17.9 Acute kidney failure, unspecified; E11.9 Type 2 diabetes mellitus without complications

== ENCOUNTER 2025-04-27 08:30 | Inpatient (IN) ==
--- NOTE | 2025-04-27 08:46 | ED Physician Documentation ---
PD HPI SKIN Stated complaint Stated Complaint: RLL SWELLING Chief complaint Chief Complaint: Wound History obtained from History obtained from: Patient and EMS History of Present Illness Timing - onset: How many days ago (Patient recently hopsitalized for cellulitis right lower leg and in [facility] for 4 days, with Dx improving cellulitis per d/c note, and Rx Augmentin bid x 5 days. Pt states had increased swelling of leg last 2 days, and knee swelling started yesterday, worse today. ) Timing - details: Gradual onset and Still present Quality / character: Painful, Discolored and Swelling; No Vesicular or Draining Improved by: No Antibiotics Associated symptoms: Joint pain (right knee new for her.); No Fever Contributing factors: No Recent illness Recently seen: Emergency Dept and Admitted Meds/Allgy Home Medications Ambulatory Orders Medication Instructions Recorded Confirmed lancets 21 gauge #30 ea 12/16/13 sirolimus 1 mg tablet (Rapamune) 1 mg PO DAILY 4 04/27/25 fenofibrate 54 mg tablet 54 mg PO QPM 04/22/25 gabapentin 800 mg tablet 800 mg PO BID 04/22/2504/27 insulin glargine 100 unit/mL (3 30 unit subcut BID 04/27/25 mL) subcutaneous pen (Lantus Solostar U-100 Insulin) insulin lispro 100 unit/mL 1 - 15 unit subcut TIDWM 04/27/25 subcutaneous solution (Humalog U-100 Insulin) levothyroxine 88 mcg tablet 88 mcg PO QDAC 04/22/25 (Synthroid) pravastatin 40 mg tablet 40 mg PO QPM 04/22/25 Augmentin 875 mg-potassium 1 tab PO BID 5 days #10 tab s 04/23/25 04/27/25 clavulanate 125 mg tablet oxycodone 5 mg tablet 5 mg PO TID PRN pain #20 tab s 04/23/25 04/27/25 Allergies Allergies Allergy/AdvReac Type Severity Reaction Status Date / Time No Known Drug Allergies Allergy Verified 04/27/25 08:42 PFSH Active Problems All Active Problems (Updated 04/27/25 @ 15:26 by Shankar Pelayo DO) Immunosuppressed status (Acute) Hyperlipidemia (Chronic) Hypothyroid (Chronic) Septic arthritis (Acute) Effusion of knee joint right (Acute) Sepsis (Acute) History of liver transplant (Acute) Cellulitis (Acute) Surgical History Surgical History (Updated 04/27/25 @ 12:32 by Louie Francois MD) Liver transplant recipient Social History Social History (Updated 04/27/25 @ 14:01 by Jb Douglas DO) Smoking Status: Unknown if ever smoked Second hand tobacco smoke exposure: No Do you dip or chew tobacco?: No Do you vape?: No Patient requests smoking cessation consult: No Initiate information on smoking cessation: No Living arrangement: At home Level: Assisted Home Mobility Equipment: Walker Do you feel safe in your home environment?: Yes History of physical, verbal, emotional, or financial abuse?: No Substance Use: denies use POLST Patient has POLST: No Exam Exam Vital Signs: Vital Signs x48h Temp Pulse Resp BP Pulse Ox O2 Flow Rate 04/27/25 10:41 74 20 139/66 H 97 2 04/27/25 08:37 37.1 C 73 18 139/66 H 96 Constitutional normal general appearance, no apparent distress and average body habitus Neck/C-Spine supple and no meningeal signs Lymph no lymphadenopathy noted Respiratory normal respiratory effort, clear to auscultation bilaterally and no rales Cardiovascular normal heart rate noted, regular rhythm noted and no murmur Gastrointestinal abdomen soft to palpation, nontender to palpation and nondistended Genitourinary no CVA tenderness Neurology no focal motor deficit noted, no sensory deficits noted and speech normal left leg without tenderness, swelling, nor rash noted. Right lower leg has blue skin marker outline of red and tender area that is mainly still contained within the lines, except medially where there is extended redness superiorly to drawn outline. The area of redness/cellulitis does not have crepitance to it. It stops below the anterior tibial ridge and does not incorporate the knee area. There is tenderness in the knee generally and moderate effusion. There is not any tenderness in upper nor medial thigh. Mild inguinal nodes. The lower leg has general edema and swelling. Good pulses at dorsal pedis as well as cap refill in toes. Psychiatry mental status grossly normal, thought process normal, cooperative and affect normal Results Vitals Vitals: Vital Signs - 24 hr 04/27/25 08:37 04/27/25 09:07 04/27/25 10:07 Temperature 37.1 C Temperature Source Axillary Pulse Rate 73 Respiratory Rate 18 Blood Pressure 139/66 H O2 Saturation 96 O2 Source Room air If not protocol: Oxygen Flow, liters/minute Pain Intensity 10 10 3 04/27/25 10:41 04/27/25 12:00 04/27/25 12:07 Temperature Temperature Source Pulse Rate 74 71 70 Respiratory Rate 20 20 17 Blood Pressure 139/66 H 132/65 H 132/65 H O2 Saturation 97 95 100 O2 Source Nasal cannula Nasal cannula Room air If not protocol: Oxygen Flow, liters/minute 2 2 Pain Intensity 3 2 3 Oxygen O2 Source Room air Labs Labs: Microbiology 04/27/25 09:21 Body Fluid Culture - Preliminary Synovial Fluid Laboratory Tests 04/27/25 04/27/25 04/27/25 08:44 09:21 12:03 WBC 9.7 RBC 4.28 Hgb 11.7 L Hct 36.8 L MCV 86.0 MCH 27.3 MCHC 31.8 L RDW 14.1 Plt Count 363 MPV 8.9 Neut # (Auto) 6.4 Lymph # (Auto) 2.3 [place] # (Auto) 0.6 Eos # (Auto) 0.1 Baso # (Auto) 0.1 Absolute Nucleated RBC 0.00 Nucleated RBC % 0.0 ESR 107 H Sodium 135 Potassium 4.3 Chloride 98 L Carbon Dioxide 27 Anion Gap 10.0 BUN 16 Creatinine 1.1 Estimated GFR (MDRD) 49 L Glucose 87 Lactic Acid 1.0 Calcium 9.3 Magnesium 1.8 Total Bilirubin 0.7 AST 35 ALT 32 Alkaline Phosphatase 177 H Total Creatine Kinase 34 C-Reactive Protein 13.5 H Total Protein 7.5 Albumin 3.5 Globulin 4.0 Albumin/Globulin Ratio 0.9 L Lipase < 10 L Fluid Source SYNOVIAL Fluid Color YELLOW Fluid Clarity CLOUDY Fluid WBC 36784 Fluid RBC < 3000 Fluid Neutrophils % 90 Fluid Lymphocytes % 2 Fluid Monocytes % 5 Fluid Macrophages % 3 Fld Mesothelial Cell % Not Reportable Fluid Crystals NONE SEEN Rads (name of study) left lower extremity CT: Relevant Findings:: Final report received Interpretation: EXAM: [id number] CT/LERW ([id number]) PROCEDURE: CT Lower Extremity RT W INDICATIONS: loer leg infection, eval for deep space infection TECHNIQUE: After administration of contrast 3 mm axial sections acquired of the the distal right lower extremity, with coronal and sagittal reformats. For radiation dose reduction, the following was used: automated exposure control, adjustment of mA and/or kV according to patient size. CONTRAST: [id number] 100ML COMPARISON: Correlation is made with the accompanying imaging. FINDINGS: Image quality: Excellent. Bones: No significant bony abnormality is seen. Moderate generalized degenerative changes are seen. Soft tissues: Generalized soft tissue swelling is seen distally, with skin thickening and fatty stranding. No soft tissue gas is seen. No focal fluid collections are seen to suggest abscess. IMPRESSION: Soft tissue swelling is seen, yet without findings of abscess or soft tissue gas. Negative for abscess or soft tissue gas. Generalized skin thickening and soft tissue swelling seen, which is most consistent with generalized cellulitis. Reviewed by: Darien Hernández MD on 04/27/2025 12:14 PM [facility] US: Relevant Findings:: Final report received and Other (US Tech - no DVT) Interpretation: EXAM: [id number] US/VENR ([id number]) PROCEDURE: US Venous Duplex RT INDICATIONS: cellulitis, more leg swelling and pain TECHNIQUE: Real-time imaging, as well as color and pulse Doppler interrogation, were performed of the lower extremity deep veins from the inguinal ligament to the popliteal fossa. Attempted visualization of the calf veins was performed. COMPARISON: None. FINDINGS: The deep veins are normally compressible, and free of intraluminal thrombus. Color and pulse Doppler demonstrate normal phasic intraluminal flow. There is normal augmentation response to distal compression maneuver. Nonvisualized calf veins due to overlying soft tissue edema IMPRESSION: No deep venous thrombosis of the visualized lower extremity. Reviewed by: Leon Waldron MD on 04/27/2025 10:02 AM PST Procedures Arthrocentesis Joint: Knee and Right Preparation: Sterile prep and drape Anesthesia: Lidocaine 1% Fluid: Sent for cell count, Cloudy, Sent for crystals, Sent for culture, Fluid obtained - cc (11) and Sent for gram stain Aftercare: Dressing applied, No complications and Patient tolerated well PD Medical Decision Making ED course Complexity details: reviewed results, considered differential (Pt recently hospitalized for cellulitis right lower leg, with increased pain of lower leg and noting knee welling the past 2-3 days. Some expansion of redness area. No fevers. Concern for worsening cellulitis, and consider spread to knee joint infection. Does not seem septic. ), d/w patient and d/w showroom sales consultant (Talked with Dr. Douglas, Ortho, who did not feel effusion findings warranted wash out. He will come see pt. Refers to Hospitalist service. ) Reviewed Lab Results: WBC is normal. INflammatory markers at suggestion of Ortho showed elevated ESR 107 and CRP 13.5. Cell count from knee effusion showed 26K WBCs with 90% neutrophils. 3K RBCs. No crystals. No bacteria seen on gram stain. Cultur epending. Creatinine 1.1 with GFR 49. So able to get CT with contrast. ED course: recent hospitalization for cellulitis right anterior lower leg, with increased pain and swelling and now knee pain and swelling without redness for 1-2 days. No fevers. Alert and conversant. Had increased cellulitic symptoms and concern for developing septic knee joint. Given Rocephin and CLindamycin IV initially. With knee aspiration prior to antibiotics. Consulted Ortho and will see pt. Discharge Plan Discharge Patient Disposition: [facility] DC/Xfer Condition: Stable Clinical Impression: History of liver transplant, Effusion of knee joint right Cellulitis Qualifiers: Site of cellulitis: unspecified site Qualified Code(s): L03.90 - Cellulitis, unspecified Interventions: ED Admission Assessment Last Done: 04/27/25 13:18 Vitals documented within 30 minutes of discharge?: Yes
--- OUTSIDE RECORDS SUMMARY | 2025-04-27 09:03 | EXTERNAL MEDICAL SUMMARY RPT | Continuity of Care Document ---
Author Organization [facility] Address [address] [place] [id number] Phone Problems date description facility 2025-04-21 22:26 Cellulitis, unspecified [facility] 2025-04-21 22:55 Cellulitis, unspecified [facility] 2025-04-22 01:49 Cellulitis, unspecified [facility] 2025-04-23 13:18 Sepsis, unspecified organism [facility] 2025-04-23 13:18 Type 2 diabetes mellitus withou t complications [facility] 2025-04-23 13:18 Cellulitis, unspecified [facility] 2025-04-23 13:18 Liver transplant status [facility] 2025-04-23 13:42 Sepsis, unspecified organism [facility] 2025-04-23 13:42 Type 2 diabetes mellitus withou t complications [facility] 2025-04-23 13:42 Cellulitis, unspecified [facility] 2025-04-23 13:42 Liver transplant status [facility] 2025-04-23 14:36 Sepsis, unspecified organism [facility] 2025-04-23 14:36 Type 2 diabetes mellitus withou t complications [facility] 2025-04-23 14:36 Cellulitis, unspecified [facility] 2025-04-23 14:36 Liver transplant status [facility] 2025-04-23 16:16 Sepsis, unspecified organism [facility] 2025-04-23 16:16 Type 2 diabetes mellitus withou t complications [facility] 2025-04-23 16:16 Cellulitis, unspecified [facility] 2025-04-23 16:16 Liver transplant status [facility] 2025-04-24 13:30 Sepsis, unspecified organism [facility] 2025-04-24 13:30 Type 2 diabetes mellitus withou t complications [facility] 2025-04-24 13:30 Cellulitis, unspecified [facility] 2025-04-24 13:30 Liver transplant status [facility] 2025-04-24 13:40 Sepsis, unspecified organism [facility] 2025-04-24 13:40 Type 2 diabetes mellitus withou t complications [facility] 2025-04-24 13:40 Cellulitis of right lower limb [facility] 2025-04-24 13:40 Cellulitis, unspecified [facility] 2025-04-24 13:40 Nausea with vomiting, unspecifi ed [facility] 2025-04-24 13:40 [facility], [facility] 13:40 Localized swelling, mass and marli mp, right lower limb [facility] 2025-04-24 13:40 Liver transplant status [facility] Results/Labs test date facility value unit notes Result panel 1 C [facility]FF [facility]-21 [facility]) Result panel 2 LACTIC ACID, VENOUS 2025-04-21 17[facility] 0.[facility] mmol/l N As of November 2022 testing method has changed, this may include reference ranges. NUCLEATED RED BLOOD CELLS AUTO 2025-04-21 17:08 [facility] 0.0 /100wbc (missing) EOSINOPHILS # (AUTO) 2025-04-21 17:08 [facility] 3/ul (missing) NRBC ABSOLUTE COUNT (AUTO) 2025-04-21 17:08 [facility] 0.00 x10 3/ul (missing) BASOPHILS # (AUTO) 2025-04-21 [facility] [facility] 0.[facility] 10 3/ul (missing) MONOCYTES # (AUTO) 2025-04-21 17:08 [facility] 0.6 10 3/ul (missing) BILIRUBIN,TOTAL 2025-04-21 17:08 [facility] 0.9 mg/dl As of November 2022 testing method has changed, this may include reference ranges. ALBUMIN/GLOBULIN RATIO 2025-04-21 17:08 [facility] 1.2 (missing) (missing) CREATININE 2025-04-21 17:08 [facility] 1.5 mg/dl As of November 2022 testing method has changed, this may include reference ranges. LYMPHOCYTES # (AUTO) 2025-04-21 17:08 [facility] 1.7 10 3/ul (missing) WHITE BLOOD COUNT 2025-04-21 17:08 [facility] 12.3 x10 3/ul (missing) HGB - HEMOGLOBIN 2025-04-21 17:08 [facility] 12.8 g/dl (missing) GLUCOSE 2025-04-21 17:08 [facility] 131 mg/dl As of November 2022 testing method has changed, this may include reference ranges. SODIUM 2025-04-21 17:08 [facility] 131 mmol/l (missing) ALT ALANINE AMINOTRANSFERASE 2025-04-21 17:08 [facility] 14 iu/l As of November 2022 testing method has changed, this may include reference ranges. RED CELL DISTRIBUTION WIDTH 2025-04-21 17:08 [facility] 14.2 % (missing) LIPASE 2025-04-21 17:08 [facility] 15 u/l As of November 2022 testing method has changed, this may include reference ranges. AST ASPARTATE AMINOTRANSFERASE 2025-04-21 17:08 [facility] 18 iu/l As of November 2022 testing method has changed, this may include reference ranges. PLT - PLATELET COUNT 2025-04-21 17:08 [facility] 229 10 3/ul (missing) CARBON DIOXIDE - CO2 2025-04-21 17:08 [facility] 24 mmol/l As of November 2022 testing method has changed, this may include reference ranges. MEAN CORPUSCULAR HEMOGLOBIN 2025-04-21 17:08 [facility] 27.1 pg (missing) GLOBULIN 2025-04-21 17:08 [facility] 3.6 g/dl (missing) POTASSIUM 2025-04-21 17:08 [facility] 3.7 mmol/l As of November 2022 testing method has changed, this may include reference ranges. BUN - BLOOD UREA NITROGEN 2025-04-21 17:08 [facility] 30 mg/dl As of November 2022 testing method has changed, this may include reference ranges. MEAN CORPUSCULAR HGB CONC 2025-04-21 17:08 [facility] 31.2 g/dl (missing) GFR - MDRD 2025-04-21 17:08 [facility] 34 (missing) The IDMS-traceable MDRD Study Equation [...] caring for patients older than 70. References: http://www.nkdep .nih.gov/lab-yash luation/gfr/crea claudia-stand ardization, last updated July 2011. ALBUMIN 2025-04-21 17:08 [facility] 4.2 g/dl As of November 2022 testing method has changed, this may include reference ranges. RED BLOOD COUNT 2025-04-21 17:08 [facility] 4.73 10 6/ul (missing) HCT - HEMATOCRIT 2025-04-21 17:08 [facility] 41.0 % (missing) ALKALINE PHOSPHATASE 2025-04-21 17:08 [facility] 60 iu/l As of November 2022 testing method has changed, this may include reference ranges. TOTAL PROTEIN 2025-04-21 17:08 [facility] 7.8 g/dl As of November 2022 testing method has changed, this may include reference ranges. MEAN CORPUSCULAR VOLUME 2025-04-21 17:08 [facility] 86.7 fl (missing) ANION GAP 2025-04-21 17:08 [facility] 9.0 (missing) (missing) MEAN PLATELET VOLUME 2025-04-21 17:08 [facility] 9.2 fl (missing) CALCIUM 2025-04-21 17:08 [facility] 9.7 mg/dl As of November 2022 testing method has changed, this may include reference ranges. NEUTROPHILS # (AUTO) 2025-04-21 17:08 [facility] 9.8 10 3/ul (missing) CHLORIDE 2025-04-21 17:08 [facility] 98 mmol/l As of November 2022 testing method has changed, this may include reference ranges. CULTURE, BLOOD #1 2025-04-21 17[facility]08 [facility] NG[facility]DNO GROWTH AFTER 1 DAY (missing) (missing) CULTURE, BLOOD #1 2025-04-21 17:08 [facility] NG2DNO GROWTH AFTER 2 DAYS (missing) (missing) CULTURE, BLOOD #1 2025-04-21 17:08 [facility] NG5DNO GROWTH AFTER 5 DAYS (missing) (missing) Result panel 3 CULTURE, BLOOD #2 2025-04-21 17:19 [facility] NG1DNO GROWTH AFTER 1 DAY (missing) (missing) CULTURE, BLOOD #2 2025-04-21 17:19 [facility] NG2DNO GROWTH AFTER 2 DAYS (missing) (missing) CULTURE, BLOOD #2 2025-04-21 17:19 [facility] NG5DNO GROWTH AFTER 5 DAYS (missing) (missing) SARS-CoV-2 -RESP PCR PANEL 2025-04-21: [facility] NOT DETECTED (missing) A negative test result for this test indicates that SARS-CoV-2 RNA was not present in the specimen above the limit of detection. Testing performed on the BioFire RP2.1 Panel, a multiplexed nucleic acid repiratory [...] SARS-CoV-2 virus. INFLUENZA A- RESP PCR PANEL 2025-04-21: [facility] NOT DETECTED (missing) Influenza A including subtypes H1, H3, and H1-2009 not detected by the BioFire RP2.1 Panel, a multiplexed nucleic acid test intended for the simultaneous qualitative detection and differentiation of nucleic acids from multiple viral and bacterial respiratory organisms. B. PARAPERTUSSIS- RESP PCR HAJI 2025-04-21 17:19 [facility] NOT DETECTED (missing) Negative results for this organism do not preclude infection with this organism and may require additional laboratory testing (e.g., bacterial and viral culture, immunofluorescence, and radiography) when evaluating a patient with possible respiratory tract infection. B. PERTUSSIS- RESP PCR PANEL 2025-04-21 17:19 [facility] NOT DETECTED (missing) Negative results for this organism do not preclude infection with this organism and may require additional laboratory testing (e.g., bacterial and viral culture, immunofluorescence, and radiography) when evaluating a patient with possible respiratory tract infection. C. PNEUMONIAE- RESP PCR PANEL 2025-04-21 17:19 [facility] NOT DETECTED (missing) Negative results for this organism do not preclude infection with this organism and may require additional laboratory testing (e.g., bacterial and viral culture, immunofluorescence, and radiography) when evaluating a patient with possible respiratory tract infection. M. PNEUMONIAE- RESP PCR PANEL 2025-04-21 17:19 [facility] NOT DETECTED (missing) Negative results for this organism do not preclude infection with this organism and may require additional laboratory testing (e.g., bacterial and viral culture, immunofluorescence, and radiography) when evaluating a patient with possible respiratory tract infection. CORONAVIRUS 229E-RESP PCR 2025-04-21 17:19 [facility] NOT DETECTED (missing) Negative results in the setting ofa respiratory illness may be due to infection with pathogens not detected by this test, or lower respiratory tract infection that may not be detected by nasopharyngeal specimen. CORONAVIRUS HKU1-RESP PCR 2025-04-21 17:19 [facility] NOT DETECTED (missing) Negative results in the setting ofa respiratory illness may be due to infection with pathogens not detected by this test, or lower respiratory tract infection that may not be detected by nasopharyngeal specimen. CORONAVIRUS QO39-LCTW PCR 2025-04-21 17:19 [facility] NOT DETECTED (missing) Negative results in the setting ofa respiratory illness may be due to infection with pathogens not detected by this test, or lower respiratory tract infection that may not be detected by nasopharyngeal specimen. CORONAVIRUS CL02-EFBW PCR 2025-04-21 17:19 [facility] NOT DETECTED (missing) Negative results in the setting ofa respiratory illness may be due to infection with pathogens not detected by this test, or lower respiratory tract infection that may not be detected by nasopharyngeal specimen. HUMAN METAPNEUMOVIRUS 2025-04-21 17:19 [facility] NOT DETECTED (missing) Negative results in the setting ofa respiratory illness may be due to infection with pathogens not detected by this test, or lower respiratory tract infection that may not be detected by nasopharyngeal specimen. INFLUENZA B - RESP PCR PANEL 2025-04-21 17:19 [facility] NOT DETECTED (missing) Negative results in the setting ofa respiratory illness may be due to infection with pathogens not detected by this test, or lower respiratory tract infection that may not be detected by nasopharyngeal specimen. PARAINFLUENZA VIRUS 1 2025-04-21 17:19 [facility] NOT DETECTED (missing) Negative results in the setting ofa respiratory illness may be due to infection with pathogens not detected by this test, or lower respiratory tract infection that may not be detected by nasopharyngeal specimen. PARAINFLUENZA VIRUS 2 2025-04-21 17:19 [facility] NOT DETECTED (missing) Negative results in the setting ofa respiratory illness may be due to infection with pathogens not detected by this test, or lower respiratory tract infection that may not be detected by nasopharyngeal specimen. PARAINFLUENZA VIRUS 3 2025-04-21 17:19 [facility] NOT DETECTED (missing) Negative results in the setting ofa respiratory illness may be due to infection with pathogens not detected by this test, or lower respiratory tract infection that may not be detected by nasopharyngeal specimen. PARAINFLUENZA VIRUS 4 2025-04-21 17:19 [facility] NOT DETECTED (missing) Negative results in the setting ofa respiratory illness may be due to infection with pathogens not detected by this test, or lower respiratory tract infection that may not be detected by nasopharyngeal specimen. RHINOVIRUS/ENTEROVI REJI 2025-04-21 17:19 [facility] NOT DETECTED (missing) Negative results in the setting ofa respiratory illness may be due to infection with pathogens not detected by this test, or lower respiratory tract infection that may not be detected by nasopharyngeal specimen. RSV- RESP PCR PANEL 2025-04-21 17:19 [facility] NOT DETECTED (missing) Negative results in the setting ofa respiratory illness may be due to infection with pathogens not detected by this test, or lower respiratory tract infection that may not be detected by nasopharyngeal specimen. ADENOVIRUS - RESP PCR PANEL 2025-04-21 17:19 [facility] NOT DETECTED (missing) YES Negative results in the setting ofa respiratory illness may be due to infection with pathogens not detected by this test, or lower respiratory tract infection that may not be detected by nasopharyngeal specimen. Result panel 4 WBC,URINE 2025-04-22 03:15 [facility] 0-3 /hpf (missing) RBC,URINE 2025-04-22 03:15 [facility] 0-5 /hpf (missing) UROBILINOGEN,URIN E 2025-04-22 03:15 [facility] 0.2 (NORMAL) e.u./dl (missing) SPECIFIC GRAVITY,URINE 2025-04-22 03:15 [facility] 1.010 (missing) (missing) PH,URINE 2025-04-22 03:15 [facility] 6.0 ph (missing) CLARITY,URINE 2025-04-22 03:15 [facility] CLEAR (missing) (missing) URINE MICROSCOPIC INDICATED? 2025-04-22 03:15 [facility] INDICATED (missing) (missing) OCCULT BLOOD,URINE 2025-04-22 03:15 [facility] MODERATE (missing) (missing) LEUKOCYTE ESTERASE, URINE 2025-04-22 03:15 [facility] NEGATIVE (missing) (missing) NITRITE,URINE 2025-04-22 03:15 [facility] NEGATIVE (missing) (missing) BILIRUBIN,URINE 2025-04-22 03:15 [facility] NEGATIVE (missing) Bilirubin can be influenced by color interference. Please correlate positive results with clinical presentation GLUCOSE, URINE (UA) 2025-04-22 03:15 [facility] NEGATIVE mg/dl (missing) KETONES,URINE (UA) 2025-04-22 03:15 [facility] NEGATIVE mg/dl (missing) PROTEIN,URINE 2025-04-22 03:15 [facility] NEGATIVE mg/dl (missing) UR CULTURE IF IND 2025-04-22 03:15 [facility] NOT INDICATED (missing) (missing) SQUAMOUS EPITHELIAL CELL,UR 2025-04-22 03:15 [facility] RARE Squamous (missing) (missing) BACTERIA,URINE 2025-04-22 03:15 [facility] Rare /hpf (missing) COLOR,URINE 2025-04-22 03:15 [facility] YELLOW (missing) URINE CLEAN CATCH Result panel 5 NUCLEATED RED BLOOD CELLS AUTO 2025-04-22 06:10 [facility] 0.0 /100wbc (missing) BASOPHILS # (AUTO) 2025-04-22 06:10 [facility] 0.0 10 3/ul (missing) NRBC ABSOLUTE COUNT (AUTO) 2025-04-22 06:10 [facility] 0.00 x10 3/ul (missing) EOSINOPHILS # (AUTO) 2025-04-22 06:10 [facility] 0.1 10 3/ul (missing) MONOCYTES # (AUTO) 2025-04-22 06:10 [facility] 0.9 10 3/ul (missing) BILIRUBIN,TOTAL 2025-04-22 06:10 [facility] 0.9 mg/dl As of November 2022 testing method has changed, this may include reference ranges. ALBUMIN/GLOBULIN RATIO 2025-04-22 06:10 [facility] 1.2 (missing) (missing) CREATININE 2025-04-22 06:10 [facility] 1.4 mg/dl As of November 2022 testing method has changed, this may include reference ranges. CHLORIDE 2025-04-22 06:10 [facility] 105 mmol/l As of November 2022 testing method has changed, this may include reference ranges. HGB - HEMOGLOBIN 2025-04-22 06:10 [facility] 11.9 g/dl (missing) GLUCOSE 2025-04-22 06:10 [facility] 116 mg/dl As of November 2022 testing method has changed, this may include reference ranges. ALT ALANINE AMINOTRANSFERASE 2025-04-22 06:10 [facility] 12 iu/l As of November 2022 testing method has changed, this may include reference ranges. WHITE BLOOD COUNT 2025-04-22 06:10 [facility] 13.4 x10 3/ul (missing) SODIUM 2025-04-22 06:10 [facility] 136 mmol/l (missing) RED CELL DISTRIBUTION WIDTH 2025-04-22 06:10 [facility] 14.3 % (missing) AST ASPARTATE AMINOTRANSFERASE 2025-04-22 06:10 [facility] 19 iu/l As of November 2022 testing method has changed, this may include reference ranges. LYMPHOCYTES # (AUTO) 2025-04-22 06:10 [facility] 2.8 10 3/ul (missing) PLT - PLATELET COUNT 2025-04-22 06:10 [facility] 202 10 3/ul (missing) CARBON DIOXIDE - CO2 2025-04-22 06:10 [facility] 23 mmol/l As of November 2022 testing method has changed, this may include reference ranges. BUN - BLOOD UREA NITROGEN 2025-04-22 06:10 [facility] 24 mg/dl As of November 2022 testing method has changed, this may include reference ranges. MEAN CORPUSCULAR HEMOGLOBIN 2025-04-22 06:10 [facility] 26.9 pg (missing) GLOBULIN 2025-04-22 06:10 [facility] 3.2 g/dl (missing) ALBUMIN 2025-04-22 06:10 [facility] 3.8 g/dl As of November 2022 testing method has changed, this may include reference ranges. MEAN CORPUSCULAR HGB CONC 2025-04-22 06:10 [facility] 30.4 g/dl (missing) GFR - MDRD 2025-04-22 06:10 [facility] 37 (missing) The IDMS-traceable MDRD Study Equation has [...] ation/gfr/creatin ine-stand ardization, last updated July 2011. HCT - HEMATOCRIT 2025-04-22 06:10 [facility] 39.1 % (missing) POTASSIUM 2025-04-22 06:10 [facility] 4.4 mmol/l As of November 2022 testing method has changed, this may include reference ranges. RED BLOOD COUNT 2025-04-22 06:10 [facility] 4.43 10 6/ul (missing) ALKALINE PHOSPHATASE 2025-04-22 06:10 [facility] 57 iu/l As of November 2022 testing method has changed, this may include reference ranges. TOTAL PROTEIN 2025-04-22 06:10 [facility] 7.0 g/dl As of November 2022 testing method has changed, this may include reference ranges. ANION GAP 2025-04-22 06:10 [facility] 8.0 (missing) (missing) MEAN CORPUSCULAR VOLUME 2025-04-22 06:10 [facility] 88.3 fl (missing) CALCIUM 2025-04-22 06:10 [facility] 9.2 mg/dl As of November 2022 testing method has changed, this may include reference ranges. MEAN PLATELET VOLUME 2025-04-22 06:10 [facility] 9.3 fl (missing) NEUTROPHILS # (AUTO) 2025-04-22 06:10 [facility] 9.6 10 3/ul (missing) Result panel 6 GLUCOSE, WHOLE BLOOD 2025-04-22 07:36 [facility] 101 (missing) RN notified. Result panel 7 GLUCOSE, WHOLE BLOOD 2025-04-22 11:37 [facility] 151 (missing) RN notified. Result panel 8 GLUCOSE, WHOLE BLOOD 2025-04-22 16:41 [facility] 121 (missing) RN notified. Result panel 9 GLUCOSE, WHOLE BLOOD 2025-04-22 21:06 [facility] 168 (missing) (missing) Result panel 10 GLUCOSE, WHOLE BLOOD 2025-04-23 07:49 [facility] 107 (missing) RN notified. Result panel 11 CREATININE 2025-04-23 11:15 [facility] 1.4 mg/dl As of November 2022 testing method has changed, this may include reference ranges. WHITE BLOOD COUNT 2025-04-23 11:15 [facility] 10.4 x10 3/ul (missing) CHLORIDE 2025-04-23 11:15 [facility] 106 mmol/l As of November 2022 testing method has changed, this may include reference ranges. HGB - HEMOGLOBIN 2025-04-23 11:15 [facility] 11.5 g /dl (missing) GLUCOSE 2025-04-23 11:15 [facility] 122 mg/dl As of November 2022 testing method has changed, this may include reference ranges. SODIUM 2025-04-23 11:15 [facility] 133 mmol/l (missing) RED CELL DISTRIBUTION WIDTH 2025-04-23 11:15 [facility] 14.5 % (mi ssing) PLT - PLATELET COUNT 2025-04-23 11:15 [facility] 164 10 3/ul (missing) CARBON DIOXIDE - CO2 2025-04-23 11:15 [facility] 19 mmol/l As of November 2022 testing method has changed, this may include reference ranges. BUN - BLOOD UREA NITROGEN 2025-04-23 11:15 [facility] 20 mg/dl As of Nov testing method has changed, this may include reference ranges. MEAN CORPUSCULAR HEMOGLOBIN 2025-04-23 11:15 [facility] 27.8 pg (missing) MEAN CORPUSCULAR HGB CONC 2025-04-23 11:15 [facility] 32.2 g/dl (missing) HCT - HEMATOCRIT 2025-04-23 11:15 [facility] 35.7 % (missing) GFR - MDRD 2025-04-23 11:15 [facility] 37 (in g) The IDSD-traceable MDRD Study Equation has been validated extensively [...] caring for patients older than 70. References: http://www.nkdep.n ih.gov/lab-evaluat ion/gfr/creatinine -stand ardization, last updated July 2011. POTASSIUM 2025-04-23 11:15 [facility] 4.1 mmol/l As of November 2022 testing method has changed, this may include reference ranges. RED BLOOD COUNT 2025-04-23 11:15 [facility] 4.13 10 6/ul (missing) ANION GAP 2025-04-23 11:15 [facility] 8.0 (missing ) (missing) CALCIUM 2025-04-23 11:15 [facility] 8.7 mg/dl As of November 2022 testing method has changed, this may include reference ranges. MEAN CORPUSCULAR VOLUME 2025-04-23 11:15 [facility] 86.4 fl (missing) MEAN PLATELET VOLUME 2025-04-23 11:15 [facility] 9.3 fl (missing) Result panel 12 GLUCOSE, WHOLE BLOOD 2025-04-23 11:30 [facility] 120 (missing) RN notified. Social History date description facility
[2025-04-27 09:04] LABS: HCT - HEMATOCRIT 36.8 % (37.0-47.0); HGB - HEMOGLOBIN 11.7 g/dL (12.0-16.0); MEAN PLATELET VOLUME 8.9 fL (7.9-10.8); NRBC ABSOLUTE COUNT (AUTO) 0.00 x10^3/uL; NUCLEATED RED BLOOD CELLS AUTO 0.0 /100WBC; PLT - PLATELET COUNT 363 10^3/uL (130-450); RED CELL DISTRIBUTION WIDTH 14.1 % (12.0-15.0)
[2025-04-27] MEDS: HYDROmorphone 0.5 MG/0.5 ML SYRINGE IVP STA (09:07)
[2025-04-27] MEDS: cefTRIAXone 1 GM VIAL IVP STA (09:07)
[2025-04-27] MEDS: CLINDAMYCIN 600 MG/50 ML 50 ML IV ONE (09:07)
[2025-04-27 09:17] LABS: ALT ALANINE AMINOTRANSFERASE 32 IU/L (10-60); AST ASPARTATE AMINOTRANSFERASE 35 IU/L (10-42); BUN - BLOOD UREA NITROGEN 16 mg/dL (6-20); CARBON DIOXIDE - CO2 27 mmol/L (21-32); CK- CREATINE KINASE 34 IU/L (30-223); CREATININE 1.1 mg/dL (0.6-1.3); GFR - MDRD 49 (>89)
[2025-04-27 09:57] LABS: BF CLARITY CLOUDY; BF COLOR YELLOW; BF SOURCE SYNOVIAL; CC,BF RBC < 3000 /mm^3
--- NOTE | 2025-04-27 10:06 | Ultrasound Report ---
PROCEDURE: US Venous Duplex RT INDICATIONS: cellulitis, more leg swelling and pain TECHNIQUE: Real-time imaging, as well as color and pulse Doppler interrogation, were performed of the lower extremity deep veins from the inguinal ligament to the popliteal fossa. Attempted visualization of the calf veins was performed. COMPARISON: None. FINDINGS: The deep veins are normally compressible, and free of intraluminal thrombus. Color and pulse Doppler demonstrate normal phasic intraluminal flow. There is normal augmentation response to distal compression maneuver. Nonvisualized calf veins due to overlying soft tissue edema IMPRESSION: No deep venous thrombosis of the visualized lower extremity. Reviewed by: Leon Waldron MD on 04/27/2025 10:02 AM PST Approved by: Leon Waldron MD on 04/27/2025 10:02 AM PST Station ID: [id number]
[2025-04-27 10:27] LABS: LYMPHOCYTES %,BODY FLUID 2 %; MACROPHAGES %,BODY FLUID 3 %; MONOCYTES %,BODY FLUID 5 %; NEUTROPHILS %, BF 90 %
--- NOTE | 2025-04-27 12:31 | HISTORY & PHYSICAL EXAMINATION ---
History of Present Illness Admitted From Admitted From:: ED History Obtained From Records Reviewed: [facility] History obtained from: EMR, Patient, ED Provider History of Present Illness HPI Comment/Other: This is an extremely pleasant 70-year-old female with a past medical history notable for cirrhosis cirrhosis s/p liver transplantation 20 years ago, T2DM, hypothyroidism, hyperlipidemia who was recently discharged from this hospital with right lower extremity cellulitis. She has not improved basically since her cellulitis started on 04/20. She comes back in and is found to have a Sincere cellulitic joint effusion. This was tapped in the ED and does appear to be septic arthritis. She has no peripheral leukocytosis. 26,000 WBC within the joint. Gram stain showing GPC's. Orthopedics has been consulted. Her story regarding her cellulitis is that she went out to dinner for her birthday on 04/19. She felt febrile that evening, and was worried about transplant rejection. She was able to sleep, and the next day she noticed that she had some pain and redness in her right lower extremity. This worsened over the ensuing 24 hours to the point where she could not ambulate. She had her drive her to the ED. She was admitted on 04/21 for right lower extremity cellulitis. Blood cultures from that admission did not grow anything. She was treated with ceftriaxone and vancomycin which she says did not really improve her symptoms too much. She was discharged on Augmentin. She is continue to take Augmentin at home without much improvement. She is continue to struggle to ambulate throughout this. On 04/27, she noticed increased joint effusion and redness. She has had pain more localized in the knee joint now. This prompted her to return to care. She still does not have any systemic symptoms. Has not had a fever since her early illness. Denies chest pain, dyspnea, abdominal pain, or nausea or vomiting. With regard to her transplant history, it is thought that she developed hepatitis C after blood transfusions in the 70s when she had her son. She developed DIC after the delivery, and had multiple transfusions requiring community donations at the time. She went 30 years until the early without any symptoms of hepatitis C. She initially presented in the early with nausea and vomiting and was found to have esophageal varices prompting investigation which revealed a cirrhotic liver. Her hepatitis C was then diagnosed on serologies. She lived on the transplant list for several years before having fulminant liver failure prompting an emergency transplant in 2006. She has been on sirolimus since approximately 2008. She follows with the posttransplant team at the [facility]. Gets labs every 3 months. Periodic imaging. She has had a relatively uneventful medical history since her transplant. She has only been hospitalized 1 other time, ironically for septic arthritis in the same knee that she is presenting with today. Patient is recommended for admission given her immobility, likely septic arthritis. Her lack of leukocytosis may be explained by her immunosuppressed state. She does not have septic vital signs. [place], he will be at bedside later today. Her primary care doctor has previously discussed with her about recommendations for a DNR status and advance care planning. Her and the patient are both apprehensive about DNR status. She feels like she is relatively healthy and would like a trial of resuscitative efforts. She is communicated with her that if she has little hope for recovery, she would not want to live on machines for an extended period of time. She has 2 adult children, a biologic son and adopted daughter, they live in [facility]. They are aware she is in the hospital. Meds/Allgy Home Medications Ambulatory Orders Medication Instructions Recorded Confirmed lancets 21 gauge #30 ea 12/16/13 sirolimus 1 mg tablet (Rapamune) 1 mg PO DAILY 4 04/27/25 fenofibrate 54 mg tablet 54 mg PO QPM 04/22/25 gabapentin 800 mg tablet 800 mg PO BID 04/22/2504/27 insulin glargine 100 unit/mL (3 30 unit SQ BID 5 04/27/25 mL) subcutaneous pen (Lantus Solostar U-100 Insulin) insulin lispro 100 unit/mL 1 - 15 unit subcut TIDWM 04/27/25 subcutaneous solution (Humalog U-100 Insulin) levothyroxine 88 mcg tablet 88 mcg PO QDAC 04/22/25 (Synthroid) pravastatin 40 mg tablet 40 mg PO QPM 04/22/25 Augmentin 875 mg-potassium 1 tab PO BID 5 days #10 tab s 04/23/25 04/27/25 clavulanate 125 mg tablet oxycodone 5 mg tablet 5 mg PO TID PRN pain #20 tab s 04/23/25 04/27/25 Allergies Allergies Allergy/AdvReac Type Severity Reaction Status Date / Time No Known Drug Allergies Allergy Verified 04/27/25 08:42 PFSH Active Problems All Active Problems (Updated 04/27/25 @ 15:26 by Shankar Pelayo DO) Immunosuppressed status (Acute) Hyperlipidemia (Chronic) Hypothyroid (Chronic) Septic arthritis (Acute) Effusion of knee joint right (Acute) Sepsis (Acute) History of liver transplant (Acute) Cellulitis (Acute) Surgical History Surgical History (Updated 04/27/25 @ 12:32 by Louie Francois MD) Liver transplant recipient Social History Social History (Updated 04/27/25 @ 14:01 by Jb Douglas DO) Smoking Status: Unknown if ever smoked Second hand tobacco smoke exposure: No Do you dip or chew tobacco?: No Do you vape?: No Patient requests smoking cessation consult: No Initiate information on smoking cessation: No Living arrangement: At home Level: Assisted Home Mobility Equipment: Walker Do you feel safe in your home environment?: Yes History of physical, verbal, emotional, or financial abuse?: No Substance Use: denies use POLST Patient has POLST: No Review of Systems Status of ROS: 10 or more systems reviewed and unremarkable except as noted in history and below Exam Exam Vital Signs: Vital Signs x48h Temp Pulse Resp BP Pulse Ox O2 Flow Rate 04/27/25 13:18 73 18 131/80 H 100 04/27/25 12:58 82 18 100 04/27/25 12:07 70 17 132/65 H 100 04/27/25 12:00 71 20 132/65 H 95 2 04/27/25 10:41 74 20 139/66 H 97 2 04/27/25 08:37 37.1 C 73 18 139/66 H 96 GEN: No acute distress HEENT: NC/AT, normal appearance of external ears and nose. Anicteric conjunctiva. Hearing baseline. Cardiac: Regular rate and rhythm, no murmurs. Euvolemic generally exam. Pulm: Lungs CTA bilaterally, no cough, no wheezes. Normal effort on room air Abdomen: Soft, nontender, nondistended. No rebound or guarding Extremities: Beet red demarcated area on the anterior right hernandez that is warm to the touch and slightly edematous. Tender to palpation. Slight discontiguous area of redness on the dorsal aspect of the foot. Erythematous tender knee with tender effusion. Neuro: Face symmetric, CN II through XII intact grossly. No focal neurologic deficits. Psych: Mood euthymic with congruent affect. Reasonable historian Sepsis Event Note (H) Evaluation Current Stage of Sepsis: Ruled out Conclusion/Plan Problem List (1) Septic arthritis: Qualifiers: Septic arthritis location: knee Septic arthritis organism: due to unspecified organism Laterality: right Qualified Code(s): M00.9 - Pyogenic arthritis, unspecified (2) Cellulitis: Plan: Patient presents with 1 week of worsening right lower extremity warmth, redness, and pain with a newly developed joint effusion in the ipsilateral leg. Quite tender to palpation. She was seen for the same problem here on 04/21 through 04/23. Treated with IV antibiotics while inpatient and discharged on Augmentin. Reports little improvement over the ensuing days. Complicated by the fact that she is immunosuppressed given her history of liver transplant. She has not had any signs of systemic illness since her early presentation. She had a white count on her last admission that resolved by day of discharge. WBC 9.7 today. She does not have septic physiology. Normal heart rate, afebrile. CRP 13.5, ESR 107. CT with soft tissue findings. No abscesses or gas seen. No DVT. Joint was tapped in the ED and again by orthopedics. 2 fluid samples were sent to the lab. No crystals were seen on the first sample. There are elevated white blood cells in the joint. Neutrophilic predominance. No organisms seen on the second sample. There are GPC's seen on the first. Orthopedic surgery believes this is more likely to be a crystalline arthropathy associated joint effusion given the limited cellularity. Septic joints typically have greater than 50,000 WBC. - Discussed her case with the ED provider. Discussed with orthopedic surgery. - Decision was made to admit to the medicine service. I am admitting inpatient given complex infection in immunosuppressed patient. - Follow-up synovial fluid cultures - Hold off on washout for now. - Will get second set of blood cultures, blood cultures from 04/21 no growth after 5 days - Will start on vancomycin monotherapy - Immunosuppression as below - Trend CBC, CRP, ESR a.m. - Pain management with scheduled Tylenol 3 times daily, as needed narcotics - Avoid placing catheter, encourage mobility - Manage blood sugars as below - PT to evaluate Qualifiers: Site of cellulitis: unspecified site Qualified Code(s): L03.90 - Cellulitis, unspecified (3) History of liver transplant: (4) Immunosuppressed status: Plan: Patient reportedly received her liver transplant in 2006. She has had an uneventful course since her liver transplant. She has been on sirolimus 1 mg daily since 2008 approximately. No significant sequelae of her chronic immunosuppression. She follows regularly with the posttransplant team at the [facility]. 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 I am opting for now not to discontinue her immunosuppression - Continue sirolimus 1 mg p.o. daily - If she clinically worsens with regard to her infection, she should be transferred to transplant center by guideline. - Monitor CMP a.m. (5) Diabetes mellitus: Plan: Patient with longstanding history of insulin-dependent diabetes. Her home regimen is 30 units SQ glargine twice daily with 1 to 15 units sliding scale lispro with meals. Her diabetes complicated by diabetic peripheral neuropathy. This is managed with gabapentin 800 mg p.o. twice daily. - Continue gabapentin 100 mg p.o. twice daily, monitor renal function - Continue insulin glargine 30 units SQ twice daily - Monitor blood glucoses lnuno-eq-wden q. ACHS - Carb controlled diet (6) Hypothyroid: Plan: History of acquired hypothyroidism. No ike signs of hyper or hypothyroidism. - Continue home dose levothyroxine 88 mcg daily (7) Hyperlipidemia: Plan: Patient with history of hypertriglyceridemia and mixed hyperlipidemia. She is on fenofibrate 54 mg nightly and pravastatin 40 mg nightly. I do not have access to her outpatient lipid profile, but reportedly this is controlled. - Continue [employer] fenofibrate 54 mg nightly - Continue pravastatin 40 mg nightly Plan Patient has an acute illness that poses a threat to life or bodily function. Data review as above. Discussed with ED and orthopedic surgery as above. Decision was made to admit the patient to the inpatient service. [id number] Lab Results Lab results reviewed: Yes 04/27/25 08:44 04/27/25 08:44 Diagnostic Imaging Results Diagnostic Imaging Results: positive Final report reviewed and Read independently Diagnostic Imaging Results Comments: CT right lower extremity with soft tissue swelling without abscess or soft tissue gas Venous duplex of right lower extremity without any visualized thrombus Core Measures Anticipated LOS I expect patient to be DC'd or transferred within 96 hours.: Yes DVT/VTE - Prophylaxis VTE/DVT Device ordered at admit?: No VTE/DVT Prophylaxis med ordered at admit?: Yes
--- OUTSIDE RECORDS SUMMARY | 2025-04-27 12:50 | EXTERNAL MEDICAL SUMMARY RPT | Continuity of Care Document ---
Author Organization [place] Address [address] [place] [id number] Phone Problems date description facility 2025-04-21 22:26 Cellulitis, unspecified [facility] 2025-04-21 22:55 Cellulitis, unspecified [facility] 2025-04-22 01:49 Cellulitis, unspecified [facility] 2025-04-23 13:18 Sepsis, unspecified organism [facility] 2025-04-23 13:18 Type 2 diabetes mellitus withou t complications [facility] 2025-04-23 13:18 Cellulitis, unspecified [facility] 2025-04-23 13:18 Liver transplant status [facility] 2025-04-23 13:42 Sepsis, unspecified organism [facility] 2025-04-23 13:42 Type 2 diabetes mellitus withou t complications [facility] 2025-04-23 13:42 Cellulitis, unspecified [facility] 2025-04-23 13:42 Liver transplant status [facility] 2025-04-23 14:36 Sepsis, unspecified organism [facility] 2025-04-23 14:36 Type 2 diabetes mellitus withou t complications [facility] 2025-04-23 14:36 Cellulitis, unspecified [facility] 2025-04-23 14:36 Liver transplant status [facility] 2025-04-23 16:16 Sepsis, unspecified organism [facility] 2025-04-23 16:16 Type 2 diabetes mellitus withou t complications [facility] 2025-04-23 16:16 Cellulitis, unspecified [facility] 2025-04-23 16:16 Liver transplant status [facility] 2025-04-24 13:30 Sepsis, unspecified organism [facility] 2025-04-24 13:30 Type 2 diabetes mellitus withou t complications [facility] 2025-04-24 13:30 Cellulitis, unspecified [facility] 2025-04-24 13:30 Liver transplant status [facility] 2025-04-24 13:40 Sepsis, unspecified organism [facility] 2025-04-24 13:40 Type 2 diabetes mellitus withou t complications [facility] 2025-04-24 13:40 Cellulitis of right lower limb [facility] 2025-04-24 13:40 Cellulitis, unspecified [facility] 2025-04-24 13:40 Nausea with vomiting, unspecifi ed [facility] 2025-04-24 13:40 [facility], [facility] 13:40 Localized swelling, mass and marli mp, right lower limb [facility] 2025-04-24 13:40 Liver transplant status [facility] Results/Labs test date facility value unit notes Result panel 1 C DIFF [facility]missing) Result panel 2 LACTIC ACID, VENOUS 2025-04-21 [facility] < 0.2 mmol/l N As of November 2022 testing method has changed, this may include reference ranges. NUCLEATED RED BLOOD CELLS AUTO 2025-04-21 17:08 [facility] 0.0 /100wbc (missing) EOSINOPHILS # (AUTO) 2025-04-21 [facility]08 [facility] 0.0 10 3/ul (missing) NRBC ABSOLUTE COUNT (AUTO) 2025-04-21 17:08 [facility] 0.00 x10 3/ul (missing) BASOPHILS # (AUTO) 2025-04-21 17:08 [facility] 0.1 10 3/ul (missing) MONOCYTES # (AUTO) 2025-04-21 17:08 [facility] 0.6 10 3/ul (missing) BILIRUBIN,TOTAL 2025-04-21 17:08 [facility] 0.9 mg/dl As of November 2022 testing method has changed, this may include reference ranges. ALBUMIN/GLOBULIN RATIO 2025-04-21 17:08 [facility] 1.2 (missing) (missing) CREATININE 2025-04-21 17:08 [facility] 1.5 mg/dl As of November 2022 testing method has changed, this may include reference ranges. LYMPHOCYTES # (AUTO) 2025-04-21 17:08 [facility] 1.7 10 3/ul (missing) WHITE BLOOD COUNT 2025-04-21 17:08 [facility] 12.3 x10 3/ul (missing) HGB - HEMOGLOBIN 2025-04-21 17:08 [facility] 12.8 g/dl (missing) GLUCOSE 2025-04-21 17:08 [facility] 131 mg/dl As of November 2022 testing method has changed, this may include reference ranges. SODIUM 2025-04-21 17:08 [facility] 131 mmol/l (missing) ALT ALANINE AMINOTRANSFERASE 2025-04-21 17:08 [facility] 14 iu/l As of November 2022 testing method has changed, this may include reference ranges. RED CELL DISTRIBUTION WIDTH 2025-04-21 17:08 [facility] 14.2 % (missing) LIPASE 2025-04-21 17:08 [facility] 15 u/l As of November 2022 testing method has changed, this may include reference ranges. AST ASPARTATE AMINOTRANSFERASE 2025-04-21 17:08 [facility] 18 iu/l As of November 2022 testing method has changed, this may include reference ranges. PLT - PLATELET COUNT 2025-04-21 17:08 [facility] 229 10 3/ul (missing) CARBON DIOXIDE - CO2 2025-04-21 17:08 [facility] 24 mmol/l As of November 2022 testing method has changed, this may include reference ranges. MEAN CORPUSCULAR HEMOGLOBIN 2025-04-21 17:08 [facility] 27.1 pg (missing) GLOBULIN 2025-04-21 17:08 [facility] 3.6 g/dl (missing) POTASSIUM 2025-04-21 17:08 [facility] 3.7 mmol/l As of November 2022 testing method has changed, this may include reference ranges. BUN - BLOOD UREA NITROGEN 2025-04-21 17:08 [facility] 30 mg/dl As of November 2022 testing method has changed, this may include reference ranges. MEAN CORPUSCULAR HGB CONC 2025-04-21 17:08 [facility] 31.2 g/dl (missing) GFR - MDRD 2025-04-21 17:08 [facility] 34 (missing) The IDMS-traceable MDRD Study Equation [...] last updated July 2011. ALBUMIN 2025-04-21 17:08 [facility] 4.2 g/dl As of November 2022 testing method has changed, this may include reference ranges. RED BLOOD COUNT 2025-04-21 17:08 [facility] 4.73 10 6/ul (missing) HCT - HEMATOCRIT 2025-04-21 17:08 [facility] 41.0 % (missing) ALKALINE PHOSPHATASE 2025-04-21 17:08 [facility] 60 iu/l As of November 2022 testing method has changed, this may include reference ranges. TOTAL PROTEIN 2025-04-21 17:08 [facility] 7.8 g/dl As of November 2022 testing method has changed, this may include reference ranges. MEAN CORPUSCULAR VOLUME 2025-04-21 17:08 [facility] 86.7 fl (missing) ANION GAP 2025-04-21 17:08 [facility] 9.0 (missing) (missing) MEAN PLATELET VOLUME 2025-04-21 17:08 [facility] 9.2 fl (missing) CALCIUM 2025-04-21 17:08 [facility] 9.7 mg/dl As of November 2022 testing method has changed, this may include reference ranges. NEUTROPHILS # (AUTO) 2025-04-21 17:08 [facility] 9.8 10 3/ul (missing) CHLORIDE 2025-04-21 17:08 [facility] 98 mmol/l As of November 2022 testing method has changed, this may include reference ranges. CULTURE, BLOOD #1 2025-04-21 17[facility]08 [facility] NG1DNO GROWTH AFTER 1 DAY (missing) (missing) CULTURE, BLOOD #1 2025-04-21 [facility]08 [facility] NG2DNO GROWTH AFTER 2 DAYS (missing) (missing) CULTURE, BLOOD #1 2025-04-21 17:08 [facility] NG5DNO GROWTH AFTER 5 DAYS (missing) (missing) Result panel 3 CULTURE, BLOOD #2 2025-04-21 17:19 [facility] NG1DNO GROWTH AFTER 1 DAY (missing) (missing) CULTURE, BLOOD #2 2025-04-21 17:19 [facility] NG2DNO GROWTH AFTER 2 DAYS (missing) (missing) CULTURE, BLOOD #2 2025-04-21 17:19 [facility] NG5DNO GROWTH AFTER 5 DAYS (missing) (missing) SARS-CoV-2 -RESP PCR PANEL 2025-04-21: [facility] NOT DETECTED (missing) A negative test result [...] virus. INFLUENZA A- RESP PCR PANEL 2025-04-21: [facility] NOT DETECTED (missing) Influenza A including subtypes H1, H3, and H1-2009 not detected by the BioFire RP2.1 Panel, a multiplexed nucleic acid test intended for the simultaneous qualitative detection and differentiation of nucleic acids from multiple viral and bacterial respiratory organisms. B. PARAPERTUSSIS- RESP PCR HAJI 2025-04-21 17:19 [facility] NOT DETECTED (missing) Negative results for this [...] not be detected by nasopharyngeal specimen. CORONAVIRUS [id number] PCR 2025-04-21 17:19 [facility] NOT DETECTED (missing) Negative results in the setting ofa respiratory illness may be due to infection with pathogens not detected by this test, or lower respiratory tract infection that may not be detected by nasopharyngeal specimen. CORONAVIRUS [id number] PCR 2025-04-21 17:19 [facility] NOT DETECTED (missing) Negative results in the setting ofa respiratory illness may be due to infection with pathogens not detected by this test, or lower respiratory tract infection that may not be detected by nasopharyngeal specimen. HUMAN METAPNEUMOVIRUS 2025-04-21 17:19 [facility] NOT DETECTED (missing) Negative results in the setting ofa respiratory illness may be due to infection with pathogens not detected by this test, or lower respiratory tract infection that may not be detected by nasopharyngeal specimen. INFLUENZA B - RESP PCR PANEL 2025-04-21 17:19 [facility] NOT DETECTED (missing) Negative results in the setting ofa respiratory illness may be due to infection with pathogens not detected by this test, or lower respiratory tract infection that may not be detected by nasopharyngeal specimen. PARAINFLUENZA VIRUS 1 2025-04-21 17:19 [facility] NOT DETECTED (missing) Negative results in the setting ofa respiratory illness may be due to infection with pathogens not detected by this test, or lower respiratory tract infection that may not be detected by nasopharyngeal specimen. PARAINFLUENZA VIRUS 2 2025-04-21 17:19 [facility] NOT DETECTED (missing) Negative results in the setting ofa respiratory illness may be due to infection with pathogens not detected by this test, or lower respiratory tract infection that may not be detected by nasopharyngeal specimen. PARAINFLUENZA VIRUS 3 2025-04-21 17:19 [facility] NOT DETECTED (missing) Negative results in the setting ofa respiratory illness may be due to infection with pathogens not detected by this test, or lower respiratory tract infection that may not be detected by nasopharyngeal specimen. PARAINFLUENZA VIRUS 4 2025-04-21 17:19 [facility] NOT DETECTED (missing) Negative results in the setting ofa respiratory illness may be due to infection with pathogens not detected by this test, or lower respiratory tract infection that may not be detected by nasopharyngeal specimen. RHINOVIRUS/ENTEROVI REJI 2025-04-21 17:19 [facility] NOT DETECTED (missing) Negative results in the setting ofa respiratory illness may be due to infection with pathogens not detected by this test, or lower respiratory tract infection that may not be detected by nasopharyngeal specimen. RSV- RESP PCR PANEL 2025-04-21 17:19 [facility] NOT DETECTED (missing) Negative results in the setting ofa respiratory illness may be due to infection with pathogens not detected by this test, or lower respiratory tract infection that may not be detected by nasopharyngeal specimen. ADENOVIRUS - RESP PCR PANEL 2025-04-21 17:19 [facility] NOT DETECTED (missing) YES Negative results [...] Health Rare /hpf (missing) COLOR,URINE 2025-04-22 03:15 [facility] YELLOW (missing) URINE CLEAN CATCH Result panel 5 NUCLEATED RED BLOOD CELLS AUTO 2025-04-22 06:10 [facility] 0.0 /100wbc (missing) BASOPHILS # (AUTO) 2025-04-22 06:10 [facility] 0.0 10 3/ul (missing) NRBC ABSOLUTE COUNT (AUTO) 2025-04-22 06:10 [facility] 0.00 x10 3/ul (missing) EOSINOPHILS # (AUTO) 2025-04-22 06:10 [facility] 0.1 10 3/ul (missing) MONOCYTES # (AUTO) 2025-04-22 06:10 [facility] 0.9 10 3/ul (missing) BILIRUBIN,TOTAL 2025-04-22 06:10 [facility] 0.9 mg/dl As of November 2022 testing method has changed, this may include reference ranges. ALBUMIN/GLOBULIN RATIO 2025-04-22 06:10 [facility] 1.2 (missing) (missing) CREATININE 2025-04-22 06:10 [facility] 1.4 mg/dl As of November 2022 testing method has changed, this may include reference ranges. CHLORIDE 2025-04-22 06:10 [facility] 105 mmol/l As of November 2022 testing method has changed, this may include reference ranges. HGB - HEMOGLOBIN 2025-04-22 06:10 [facility] 11.9 g/dl (missing) GLUCOSE 2025-04-22 06:10 [facility] 116 mg/dl As of November 2022 testing method has changed, this may include reference ranges. ALT ALANINE AMINOTRANSFERASE 2025-04-22 06:10 [facility] 12 iu/l As of November 2022 testing method has changed, this may include reference ranges. WHITE BLOOD COUNT 2025-04-22 06:10 [facility] 13.4 x10 3/ul (missing) SODIUM 2025-04-22 06:10 [facility] 136 mmol/l (missing) RED CELL DISTRIBUTION WIDTH 2025-04-22 06:10 [facility] 14.3 % (missing) AST ASPARTATE AMINOTRANSFERASE 2025-04-22 06:10 [facility] 19 iu/l As of November 2022 testing method has changed, this may include reference ranges. LYMPHOCYTES # (AUTO) 2025-04-22 06:10 [facility] 2.8 10 3/ul (missing) PLT - PLATELET COUNT 2025-04-22 06:10 [facility] 202 10 3/ul (missing) CARBON DIOXIDE - CO2 2025-04-22 06:10 [facility] 23 mmol/l As of November 2022 testing method has changed, this may include reference ranges. BUN - BLOOD UREA NITROGEN 2025-04-22 06:10 [facility] 24 mg/dl As of November 2022 testing method has changed, this may include reference ranges. MEAN CORPUSCULAR HEMOGLOBIN 2025-04-22 06:10 [facility] 26.9 pg (missing) GLOBULIN 2025-04-22 06:10 [facility] 3.2 g/dl (missing) ALBUMIN 2025-04-22 06:10 [facility] 3.8 g/dl As of November 2022 testing method has changed, this may include reference ranges. MEAN CORPUSCULAR HGB CONC 2025-04-22 06:10 [facility] 30.4 g/dl (missing) GFR - MDRD 2025-04-22 06:10 [facility] 37 (missing) The IDMS-traceable MDRD Study Equation [...] July 2011. HCT - HEMATOCRIT 2025-04-22 06:10 [facility] 39.1 % (missing) POTASSIUM 2025-04-22 06:10 [facility] 4.4 mmol/l As of November 2022 testing method has changed, this may include reference ranges. RED BLOOD COUNT 2025-04-22 06:10 [facility] 4.43 10 6/ul (missing) ALKALINE PHOSPHATASE 2025-04-22 06:10 [facility] 57 iu/l As of November 2022 testing method has changed, this may include reference ranges. TOTAL PROTEIN 2025-04-22 06:10 [facility] 7.0 g/dl As of November 2022 testing method has changed, this may include reference ranges. ANION GAP 2025-04-22 06:10 [facility] 8.0 (missing) (missing) MEAN CORPUSCULAR VOLUME 2025-04-22 06:10 [facility] 88.3 fl (missing) CALCIUM 2025-04-22 06:10 [facility] 9.2 mg/dl As of November 2022 testing method has changed, this may include reference ranges. MEAN PLATELET VOLUME 2025-04-22 06:10 [facility] 9.3 fl (missing) NEUTROPHILS # (AUTO) 2025-04-22 06:10 [facility] 9.6 10 3/ul (missing) Result panel 6 GLUCOSE, WHOLE BLOOD 2025-04-22 07:36 [facility] 101 (missing) RN notified. Result panel 7 GLUCOSE, WHOLE BLOOD 2025-04-22 11:37 [facility] 151 (missing) RN notified. Result panel 8 GLUCOSE, WHOLE BLOOD 2025-04-22 16:41 [facility] 121 (missing) RN notified. Result panel 9 GLUCOSE, WHOLE BLOOD 2025-04-22 21:06 [facility] 168 (missing) (missing) Result panel 10 GLUCOSE, WHOLE BLOOD 2025-04-23 07:49 [facility] 107 (missing) RN notified. Result panel 11 CREATININE 2025-04-23 11:15 [facility] 1.4 mg/dl As of November 2022 testing method has changed, this may include reference ranges. WHITE BLOOD COUNT 2025-04-23 11:15 [facility] 10.4 x10 3/ul (missing) CHLORIDE 2025-04-23 11:15 [facility] 106 mmol/l As of November 2022 testing method has changed, this may include reference ranges. HGB - HEMOGLOBIN 2025-04-23 11:15 [facility] 11.5 g /dl (missing) GLUCOSE 2025-04-23 11:15 [facility] 122 mg/dl As of November 2022 testing method has changed, this may include reference ranges. SODIUM 2025-04-23 11:15 [facility] 133 mmol/l (missing) RED CELL DISTRIBUTION WIDTH 2025-04-23 11:15 [facility] 14.5 % (mi ssing) PLT - PLATELET COUNT 2025-04-23 11:15 [facility] 164 10 3/ul (missing) CARBON DIOXIDE - CO2 2025-04-23 11:15 [facility] 19 mmol/l As of November 2022 testing method has changed, this may include reference ranges. BUN - BLOOD UREA NITROGEN 2025-04-23 11:15 [facility] 20 mg/dl As of Nov testing method has changed, this may include reference ranges. MEAN CORPUSCULAR HEMOGLOBIN 2025-04-23 11:15 [facility] 27.8 pg (missing) MEAN CORPUSCULAR HGB CONC 2025-04-23 11:15 [facility] 32.2 g/dl (missing) HCT - HEMATOCRIT 2025-04-23 11:15 [facility] 35.7 % (missing) GFR - MDRD 2025-04-23 11:15 [facility] 37 (in g) The IDAK-traceable MDRD Study Equation has been validated extensively [...] last updated July 2011. POTASSIUM 2025-04-23 11:15 [facility] 4.1 mmol/l As of November 2022 testing method has changed, this may include reference ranges. RED BLOOD COUNT 2025-04-23 11:15 [facility] 4.13 10 6/ul (missing) ANION GAP 2025-04-23 11:15 [facility] 8.0 (missing ) (missing) CALCIUM 2025-04-23 11:15 [facility] 8.7 mg/dl As of November 2022 testing method has changed, this may include reference ranges. MEAN CORPUSCULAR VOLUME 2025-04-23 11:15 [facility] 86.4 fl (missing) MEAN PLATELET VOLUME 2025-04-23 11:15 [facility] 9.3 fl (missing) Result panel 12 GLUCOSE, WHOLE BLOOD 2025-04-23 11:30 [facility] 120 (missing) RN notified. Result panel 13 LIPASE 2025-04-27 08:44 [facility] < 10 u/l As of November 2022 testing method has changed, this may include reference ranges. NUCLEATED RED BLOOD CELLS AUTO 2025-04-27 08:44 [facility] 0.0 /100wbc (missing) NRBC ABSOLUTE COUNT (AUTO) 2025-04-27 08:44 [facility] 0.00 x10 3/ul (missing) BASOPHILS # (AUTO) 2025-04-27 08:44 [facility] 0.1 10 3/ul (missing) EOSINOPHILS # (AUTO) 2025-04-27 08:44 [facility] 0.1 10 3/ul (missing) MONOCYTES # (AUTO) 2025-04-27 08:44 [facility] 0.6 10 3/ul (missing) BILIRUBIN,TOTAL 2025-04-27 08:44 [facility] 0.7 mg /dl As of November 2022 testing method has changed, this may include reference ranges. ALBUMIN/GLOBULIN RATIO 2025-04-27 08:44 [facility] 0.9 (missing) (missing) LACTIC ACID, VENOUS 2025-04-27 08:44 [facility] 1.0 mmol/l N As of November 2022 testing method has changed, this may include reference ranges. CREATININE 2025-04-27 08:44 [facility] 1.1 mg/dl As of November 2022 testing method has changed, this may include reference ranges. MAGNESIUM 2025-04-27 08:44 [facility] 1.8 mg/dl As of November 2022 testing method has changed, this may include reference ranges. ANION GAP 2025-04-27 08:44 [facility] 10.0 (missing ) (missing) HGB - HEMOGLOBIN 2025-04-27 08:44 [facility] 11.7 g /dl (missing) CRP - C-REACTIVE PROTEIN 2025-04-27 08:44 [facility] 13.5 mg/dl As of Nov testing method has changed, this may include reference ranges. SODIUM 2025-04-27 08:44 [facility] 135 mmol/l (missing) RED CELL DISTRIBUTION WIDTH 2025-04-27 08:44 [facility] 14.1 % (missing) BUN - BLOOD UREA NITROGEN 2025-04-27 08:44 [facility] 16 mg/dl As of Nov testing method has changed, this may include reference ranges. ALKALINE PHOSPHATASE 2025-04-27 08:44 [facility] 177 iu/l As of November 2022 testing method has changed, this may include reference ranges. LYMPHOCYTES # (AUTO) 2025-04-27 08:44 [facility] 2.3 10 3/ul (missing) CARBON DIOXIDE - CO2 2025-04-27 08:44 [facility] 27 mmol/l As of November 2022 testing method has changed, this may include reference ranges. MEAN CORPUSCULAR HEMOGLOBIN 2025-04-27 08:44 [facility] 27.3 pg (missing) ALBUMIN 2025-04-27 08:44 [facility] 3.5 g/dl As of November 2022 testing method has changed, this may include reference ranges. MEAN CORPUSCULAR HGB CONC 2025-04-27 08:44 [facility] 31.8 g/dl (missing) ALT ALANINE AMINOTRANSFERASE 2025-04-27 08:44 [facility] 32 iu/l As of November 2022 testing method has changed, this may include reference ranges. CK- CREATINE KINASE 2025-04-27 08:44 [facility] 34 iu/l As of November 2022 testing method has changed, this may include reference ranges. AST ASPARTATE AMINOTRANSFERASE 2025-04-27 08:44 [facility] 35 iu/l As of November 2022 testing method has changed, this may include reference ranges. HCT - HEMATOCRIT 2025-04-27 08:44 [facility] 36.8 % (missing) PLT - PLATELET COUNT 2025-04-27 08:44 [facility] 363 10 3/ul (missing) GLOBULIN 2025-04-27 08:44 [facility] 4.0 g/dl (missing) RED BLOOD COUNT 2025-04-27 08:44 [facility] 4.28 10 6/ul (missing) POTASSIUM 2025-04-27 08:44 [facility] 4.3 mmol/l As of November 2022 testing method has changed, this may include reference ranges. GFR - MDRD 2025-04-27 08:44 [facility] 49 (richelle hinson) The IDMS-traceable MDRD Study Equation has been [...] ation/gfr/creatin ine-stand ardization, last updated July 2011. NEUTROPHILS # (AUTO) 2025-04-27 08:44 [facility] 6.4 10 3/ul (missing) TOTAL PROTEIN 2025-04-27 08:44 [facility] 7.5 g/dl As of November 2022 testing method has changed, this may include reference ranges. MEAN PLATELET VOLUME 2025-04-27 08:44 [facility] 8.9 fl (missing) MEAN CORPUSCULAR VOLUME 2025-04-27 08:44 [facility] 86.0 fl (missing) GLUCOSE 2025-04-27 08:44 [facility] 87 mg/dl As of November 2022 testing method has changed, this may include reference ranges. CALCIUM 2025-04-27 08:44 [facility] 9.3 mg/dl As of November 2022 testing method has changed, this may include reference ranges. WHITE BLOOD COUNT 2025-04-27 08:44 [facility] 9.7 x10 3/ul (missing) CHLORIDE 2025-04-27 08:44 [facility] 98 mmol/l As of November 2022 testing method has changed, this may include reference ranges. Result panel 14 CUL,BODY FLUID(AEROBIC) 2025-04-27 09:21 [facility] (missing) (missing) (missing) CC,BF RBC 2025-04-27 09:21 [facility] < 3000 /mm 3 (missing) LYMPHOCYTES %,BODY FLUID 2025-04-27 09:21 [facility] 2 % (missing) CC,BF WBC 2025-04-27 09:21 [facility] 44408 /mm 3 (missing) MACROPHAGES %,BODY FLUID 2025-04-27 09:21 [facility] 3 % (missing) MONOCYTES %,BODY FLUID 2025-04-27 09:21 [facility] 5 % (missing) NEUTROPHILS %, BF 2025-04-27 09:21 [facility] 90 % (missing) BF CLARITY 2025-04-27 09:21 [facility] CLOUDY (missing) (missing) CUL,BODY FLUID(AEROBIC) 2025-04-27 09:21 [facility] GRAM STAIN (missing) (missing) CUL,BODY FLUID(AEROBIC) 2025-04-27 09:21 [facility] MODERATE WHITE BLOOD CELLS (missing) (missing) CRYSTALS, BF 2025-04-27 09:21 [facility] NONE SEEN (missing) (missing) CUL,BODY FLUID(AEROBIC) 2025-04-27 09:21 [facility] RARE GRAM POSITIVE COCCI (missing) (missing) BF SOURCE 2025-04-27 09:21 [facility] SYNOVIAL (missing) (missing) BF COLOR 2025-04-27 09:21 [facility] YELLOW (missing) (missing) Result panel 15 ESR- ERYTHROCYTE SEDIMENT RATE 2025-04-27 12:03 [facility] 107 mm/hr (missing) Social History date description facility
--- NOTE | 2025-04-27 13:17 | CT Report ---
PROCEDURE: CT Lower Extremity RT W INDICATIONS: loer leg infection, eval for deep space infection TECHNIQUE: After administration of contrast 3 mm axial sections acquired of the the distal right lower extremity, with coronal and sagittal reformats. For radiation dose reduction, the following was used: automated exposure control, adjustment of mA and/or kV according to patient size. CONTRAST: [id number] 100ML COMPARISON: Correlation is made with the accompanying imaging. FINDINGS: Image quality: Excellent. Bones: No significant bony abnormality is seen. Moderate generalized degenerative changes are seen. Soft tissues: Generalized soft tissue swelling is seen distally, with skin thickening and fatty stranding. No soft tissue gas is seen. No focal fluid collections are seen to suggest abscess. IMPRESSION: Soft tissue swelling is seen, yet without findings of abscess or soft tissue gas. Negative for abscess or soft tissue gas. Generalized skin thickening and soft tissue swelling seen, which is most consistent with generalized cellulitis. Reviewed by: Darien Hernández MD on 04/27/2025 12:14 PM [facility] Approved by: Darien Hernández MD on 04/27/2025 12:14 PM [facility] Station ID: [id number]
--- NOTE | 2025-04-27 14:01 | CONSULTATION NOTE ---
Chief Complaint Chief Complaint Chief Complaint: right leg and knee pain History of Present Illness History of Present Illness HPI Comment/Other: 70-year-old female presents for right leg swelling erythema and pain. She has also noticed increasing right knee pain the past couple days. She states the right leg swelling and erythema began approximately 1 week ago and she came to the ER at that time was admitted for a few days and discharged home last Thursday. She states the redness is perhaps a bit better though the pain and swelling has persisted. She has also noticed increased right knee pain the past few days. She denies any specific injury but does have a new puppy and states her new puppy is frequently scratching her though again she does not recall a specific event around her leg. Relevant past medical history includes history of liver transplant in 2006 as well as a right knee "washout" which she thinks was for an infection about 10 years ago. Meds/Allgy Home Medications Ambulatory Orders Medication Instructions Recorded Confirmed lancets 21 gauge #30 ea 12/16/13 sirolimus 1 mg tablet (Rapamune) 1 mg PO DAILY 4 04/27/25 fenofibrate 54 mg tablet 54 mg PO QPM 04/22/25 gabapentin 800 mg tablet 800 mg PO BID 04/22/2504/27 insulin glargine 100 unit/mL (3 30 unit SQ BID 5 04/27/25 mL) subcutaneous pen (Lantus Solostar U-100 Insulin) insulin lispro 100 unit/mL 1 - 15 unit subcut TIDWM 04/27/25 subcutaneous solution (Humalog U-100 Insulin) levothyroxine 88 mcg tablet 88 mcg PO QDAC 04/22/25 (Synthroid) pravastatin 40 mg tablet 40 mg PO QPM 04/22/25 Augmentin 875 mg-potassium 1 tab PO BID 5 days #10 tab s 04/23/25 04/27/25 clavulanate 125 mg tablet oxycodone 5 mg tablet 5 mg PO TID PRN pain #20 tab s 04/23/25 04/27/25 Allergies Allergies Allergy/AdvReac Type Severity Reaction Status Date / Time No Known Drug Allergies Allergy Verified 04/27/25 08:42 [facility] Active Problems All Active Problems (Updated 04/27/25 @ 12:36 by Shankar Pelayo, DO) Septic arthritis (Acute) Effusion of knee joint right (Acute) Sepsis (Acute) History of liver transplant (Acute) Cellulitis (Acute) Surgical History Surgical History (Updated 04/27/25 @ 12:32 by Louie Francois MD) Liver transplant recipient Social History Social History (Updated 04/27/25 @ 11:05 by Katie Pickering, RN, BSN) Smoking Status: Unknown if ever smoked Second hand tobacco smoke exposure: No Do you dip or chew tobacco?: No Do you vape?: No Patient requests smoking cessation consult: No Initiate information on smoking cessation: No Living arrangement: At home Level: Independent Do you feel safe in your home environment?: Yes History of physical, verbal, emotional, or financial abuse?: No Substance Use: denies use POLST Patient has POLST: No Results Lab Results 04/27/25 08:44 04/27/25 08:44 Other Lab Results: Lab Results x24hrs 04/27/25 04/27/25 04/27/25 Range/Units 12:03 09:21 08:44 WBC 9.7 (4.8-10.8) x10^3/uL RBC 4.28 (4.20-5.40) 10^6/uL Hgb 11.7 L (12.0-16.0) g/dL Hct 36.8 L (37.0-47.0) % MCV 86.0 (81.0-99.0) fL MCH 27.3 (27.0-31.0) pg MCHC 31.8 L (32.0-36.0) g/dL RDW 14.1 (12.0-15.0) % Plt Count 363 (130-450) 10^3/uL MPV 8.9 (7.9-10.8) fL Neut # (Auto) 6.4 (1.5-6.6) 10^3/uL Lymph # (Auto) 2.3 (1.5-3.5) 10^3/uL [place] # (Auto) 0.6 (0.0-1.0) 10^3/uL Eos # (Auto) 0.1 (0.0-0.7) 10^3/uL Baso # (Auto) 0.1 (0.0-0.1) 10^3/uL Absolute Nucleated RBC 0.00 x10^3/uL Nucleated RBC % 0.0 /100WBC ESR 107 H (0-30) mm/Hr Sodium 135 (135-145) mmol/L Potassium 4.3 (3.5-4.5) mmol/L Chloride 98 L (101-111) mmol/L Carbon Dioxide 27 (21-32) mmol/L Anion Gap 10.0 (6-13) BUN 16 (6-20) mg/dL Creatinine 1.1 (0.6-1.3) mg/dL Estimated GFR (MDRD) 49 L (>89) Glucose 87 (74-104) mg/dL Lactic Acid 1.0 (0.5-2.2) mmol/L Calcium 9.3 (8.5-10.3) mg/dL Magnesium 1.8 (1.7-2.3) mg/dL Total Bilirubin 0.7 (0.2-1.0) mg/dL AST 35 (10-42) IU/L ALT 32 (10-60) IU/L Alkaline Phosphatase 177 H (42-121) IU/L Total Creatine Kinase 34 (30-223) IU/L C-Reactive Protein 13.5 H (<0.5) mg/dL Total Protein 7.5 (6.4-8.9) g/dL Albumin 3.5 (3.2-5.5) g/dL Globulin 4.0 (2.1-4.2) g/dL Albumin/Globulin Ratio 0.9 L (1.0-2.2) Lipase < 10 L (11-82) U/L Fluid Source SYNOVIAL Fluid Color YELLOW Fluid Clarity CLOUDY Fluid WBC 61206 /mm^3 Fluid RBC < 3000 /mm^3 Fluid Neutrophils % 90 % Fluid Lymphocytes % 2 % Fluid Monocytes % 5 % Fluid Macrophages % 3 % Fld Mesothelial Cell % Not Reportable Fluid Crystals NONE SEEN Diagnostic Imaging Results Diagnostic Imaging Results Comments: CT scan of the right knee and lower extremity was reviewed by myself. My independent interpretation includes the following advanced degenerative changes of the right knee with significant chondrocalcinosis consistent with most likely calcium pyrophosphate disease of the joint. Additionally there is no soft tissue gas or clear abscess or fluid collection in the soft tissues. There is soft tissue swelling in the skin and subcutaneous layers consistent with likely cellulitis. I reviewed the radiologist interpretation which was consistent with cellulitis as well. Exam Exam Vital Signs: Vital Signs x48h Temp Pulse Resp BP Pulse Ox O2 Flow Rate 04/27/25 13:18 73 18 131/80 H 100 04/27/25 12:58 82 18 100 04/27/25 12:07 70 17 132/65 H 100 04/27/25 12:00 71 20 132/65 H 95 2 04/27/25 10:41 74 20 139/66 H 97 2 04/27/25 08:37 37.1 C 73 18 139/66 H 96 Nontoxic-appearing patient cooperative with exam. Focused exam of the right lower extremity demonstrates diffuse edema of the right leg there is a large diffuse area of erythema distal to the knee joint predominantly involving the anterior and lateral and anterior medial regions though some extending posteriorly. She has significant sensitivity to light touch along the skin which she states is also common in other parts of her body. She has no palpable fluctuance and no palpable crepitus. The knee has a moderate-sized effusion but is not on erythematous. She has pain to palpation throughout the entire extremity. She has a bounding distal pulse and the extremity is warm and well-perfused. Motor is intact. She has baseline peripheral neuropathy. Conclusion/Plan Problem List (1) Cellulitis: Qualifiers: Site of cellulitis: unspecified site Qualified Code(s): L03.90 - Cellulitis, unspecified Plan Right lower extremity cellulitis without signs of deep space abscess. The right knee effusion was reaspirated by myself and I drained approximately 50 cc of clear yellow fluid and no signs of purulence. The initial aspirate white count was 25,000 which is well below the average cutoff of 50,000 for a septic [place] joint. Additionally given the findings on her CT scan of significant chondrocalcinosis which is likely consistent with calcium pyrophosphate disease and the color of the fluid, I am more convinced that the knee effusion and pain is reactive and likely a flare of her pseudogout or calcium pyrophosphate disease. At this time I do not appreciate an indication for orthopedic surgery intervention. I will follow along and reexamine her during her hospital stay to monitor for acute changes. I discussed the case with the ER physician and the medicine attending. Lab Results 04/27/25 08:44 04/27/25 08:44
[2025-04-27] MEDS ORDERED: oxyCODONE 5 MG TABLET PO PRN (14:04)
[2025-04-27] MEDS ORDERED: ACETAMINOPHEN 325 MG TABLET PO PRN (14:04)
[2025-04-27] MEDS ORDERED: ONDANSETRON ODT 4 MG TABLET TL PRN (14:04)
[2025-04-27] MEDS ORDERED: SODIUM CHLORIDE FLUSH 0.9% 10 ML SYRINGE IVP PRN (14:04)
[2025-04-27] MEDS ORDERED: ONDANSETRON 4 MG/2 ML VIAL IVP PRN (14:04)
[2025-04-27 14:16] LABS: BF CLARITY CLOUDY; BF COLOR YELLOW; BF SOURCE SYNOVIAL; CC,BF RBC < 3000 /mm^3; CC,BF WBC 19030 /mm^3
--- NOTE | 2025-04-27 14:34 | PHARMACY PROGRESS NOTE ---
Vancomycin Therapy Monitoring Patient Information Vancomycin Pt Height (inches): 66.5 Vancomycin Patient Weight (kg): 85.3 Vanco Rx Serum Creatinine (mg/dL): 1.1 Vancomycin Therapy BUN (mg/dL): 16 Vancomycin Therapy Calculated Creatinine Cl (ml/min): 52 Vancomycin Therapy Goals Treatment Indication: SEPTIC ARTHRITIS Vancomycin Target Range: Vancomycin AUC Target Range 400-600 mcg*h/ml Plan: Vancomycin Loading Dose (GM, if applicable): 2 G New Regimen (Enter new dose and interval): 1.5 G Q24H for estimated AUC 502 Vancomycin Level Recommendation: Level not necessary at this time (Level to be ordered based on pending cultures if appropriate) Areas for additonal monitoring Areas for additional monitoring: IV to PO when appropriate and Therapy de- escalation based on culture results
[2025-04-27 14:45] LABS: LYMPHOCYTES %,BODY FLUID 1 %; MACROPHAGES %,BODY FLUID 4 %; MONOCYTES %,BODY FLUID 3 %; NEUTROPHILS %, BF 92 %
--- NOTE | 2025-04-27 15:57 | PHARMACY PROGRESS NOTE ---
Best Possible Medication History Admit Date and Time: 04/27/25 1232 Home Medications Medication Instructions Recorded Confirmed Type lancets 21 gauge #30 ea 12/16/13 Rx sirolimus 1 mg tablet (Rapamune) 1 mg PO DAILY 4 04/27/25 History fenofibrate 54 mg tablet 54 mg PO QPM 04/22/25 History gabapentin 800 mg tablet 800 mg PO BID 04/22/2504/27 History insulin glargine 100 unit/mL (3 30 unit subcut BID 04/27/25 History mL) subcutaneous pen (Lantus Solostar U-100 Insulin) insulin lispro 100 unit/mL 1 - 15 unit subcut TIDWM 04/27/25 History subcutaneous solution (Humalog U-100 Insulin) levothyroxine 88 mcg tablet 88 mcg PO QDAC 04/22/25 History (Synthroid) pravastatin 40 mg tablet 40 mg PO QPM 04/22/25 History Augmentin 875 mg-potassium 1 tab PO BID 5 days #10 tab s 04/23/25 04/27/25 Rx clavulanate 125 mg tablet oxycodone 5 mg tablet 5 mg PO TID PRN pain #20 tab s 04/23/25 04/27/25 Rx Processed by: Pharmacy Medications reviewed in ED?: Yes Medication History completed: Yes Patient Interview: Completed (BY RN) Secondary Source(s): Insurance records and Previous admit records (PATIENT ADMITTED LESS THAN A WEEK AGO) [facility] Statement: As the person ultimately responsible for medication therapy, providers are able to order a medication from an existing home medication list in [facility] via the "Reconcile Routine" prior to Confirmation of that medication by physician support coordinator. Such practice is discouraged except when the physician, in their clinical judgment, deems that a medical need exists for a medication without regard to previous use.
[2025-04-27] MEDS: LACTATED RINGERS 500 ML IV ONE (16:37)
[2025-04-27] MEDS: SODIUM CHLORIDE FLUSH 0.9% 10 ML SYRINGE IVP SCH (16:39)
[2025-04-27] MEDS: oxyCODONE 5 MG TABLET PO PRN (17:12)
[2025-04-27] MEDS: VANCOMYCIN INJ 2 GM in SODIUM CHLORIDE 0.9% 500 ML IV ONE (17:12)
[2025-04-27] MEDS: INSULIN LISPRO 300 UNIT/3 ML PEN SUBQ SCH (17:41)
[2025-04-27] MEDS: GABAPENTIN 400 MG CAPSULE PO SCH (21:19)
[2025-04-27] MEDS: PRAVASTATIN 40 MG TABLET PO SCH (21:19)
[2025-04-27] MEDS: INSULIN GLARGINE-YFGN 300 UNIT/3 ML PEN SUBQ SCH (21:20)
[2025-04-27] MEDS: HEPARIN 5,000 UNIT/ML VIAL SUBQ SCH (21:25)
[2025-04-27] MEDS: FENOFIBRATE 48 MG TABLET PO SCH (21:54)
[2025-04-28 06:36] LABS: HCT - HEMATOCRIT 38.1 % (37.0-47.0); HGB - HEMOGLOBIN 12.0 g/dL (12.0-16.0); MEAN PLATELET VOLUME 9.4 fL (7.9-10.8); NRBC ABSOLUTE COUNT (AUTO) 0.00 x10^3/uL; NUCLEATED RED BLOOD CELLS AUTO 0.0 /100WBC; PLT - PLATELET COUNT 380 10^3/uL (130-450); RED CELL DISTRIBUTION WIDTH 13.7 % (12.0-15.0)
[2025-04-28] MEDS: LEVOTHYROXINE 88 MCG TABLET PO SCH (06:53)
[2025-04-28 06:54] LABS: ALT ALANINE AMINOTRANSFERASE 34.0 IU/L (10-60); AST ASPARTATE AMINOTRANSFERASE 37.0 IU/L (10-42); BUN - BLOOD UREA NITROGEN 19.0 mg/dL (6-20); CARBON DIOXIDE - CO2 31.0 mmol/L (21-32); CREATININE 1.1 mg/dL (0.6-1.3); CRP - C-REACTIVE PROTEIN 16.9 mg/dL (<0.5); GFR - MDRD 49.0 (>89)
--- NOTE | 2025-04-28 07:04 | PROVIDER PROGRESS NOTE ---
Subjective Prog Note Date Prog Note Date: 04/28/25 Prog Note Time: 07:00 Subjective Subjective: No acute events overnight. Vital signs remained stable overnight. She continues to have robust blood pressure. Has remained afebrile. She is satting normally on room air. Continues to have leukocytosis this morning. Her CRP is increased from 13.5- 16.9. Blood sugars remain well-controlled. Fasting glucose 83. Patient refused VTE prophylaxis heparin stating that her transplant specialist have instructed her never to take blood thinners. This has been removed from her orders. Blood cultures were unable to be collected yesterday due to poor vascular access. Patient thinks that she is doing a little bit better today. Her pain is improving in her right leg. Still very painful, treated well with oxycodone. She is requesting 325 mg Tylenol scheduled versus 500. Continue 4 times daily dosing. No systemic signs of illness. She has had no fevers no chills, no chest pain no dyspnea. Denies abdominal pain, nausea, vomiting or diarrhea. She does not have much of an appetite. Says it is common when she is feeling unwell. Current Medications Current Medications Current Medications: Current Medications Generic Name Dose Route Start Last Admin Trade Name Freq PRN Reason Stop Dose Admin Acetaminophen 650 mg 04/27/25 14:04 Acetaminophen 325 Mg Tablet PO Q4HR PRN Pain 1 to 4, or Fever Fenofibrate 48 mg 04/27/25 21:41 04/27/25 21:54 Fenofibrate 48 Mg Tablet PO 48 mg QPM HERLINDA Administration Gabapentin 800 mg 04/27/25 21:00 04/27/25 21:19 Gabapentin 400 Mg Capsule PO 800 mg BID HERLINDA Administration Vancomycin HCl 1 gm/ 500 mls @ 250 mls/hr 04/28/25 16:00 Vancomycin HCl 500 mg/ Sodium IV Chloride Q24H HERLINDA Insulin Glargine-yfgn 30 unit 04/27/25 21:00 04/27/25 21:20 Insulin Glargine-Yfgn 300 Unit/3 Ml Pen SUBQ 30 unit BID HERLINDA Administration Insulin Human Lispro 1 - 9 unit 04/27/25 17:00 04/27/25 21:20 Insulin Lispro 300 Unit/3 Ml Pen SUBQ 2 unit 0800,1200,1700,2100 HERLINDA Administration Protocol Levothyroxine Sodium 88 mcg 04/28/25 07:00 04/28/25 06:53 Levothyroxine 88 Mcg Tablet PO 88 mcg QDAC HERLINDA Administration Ondansetron HCl 4 mg 04/27/25 14:04 Ondansetron Odt 4 Mg Tablet TL Q6HR PRN Nausea / Vomiting Ondansetron HCl 4 mg 04/27/25 14:04 Ondansetron 4 Mg/2 Ml Vial IVP Q6HR PRN Nausea / Vomiting Oxycodone HCl 5 mg 04/27/25 14:04 04/27/25 21:54 Oxycodone 5 Mg Tablet PO 5 mg Q4HR PRN Administration Pain 5 to 7 Oxycodone HCl 10 mg 04/27/25 14:04 Oxycodone 5 Mg Tablet PO Q4HR PRN Pain 8 to 10 Patient Own Med - 1 each 04/28/25 09:00 Sirolimus [Rapamune] PO 1 Mg Tablet DAILY [facility] Pravastatin Sodium 40 mg 04/27/25 21:00 04/27/25 21:19 Pravastatin 40 Mg Tablet PO 40 mg QPM [facility] Administration Sodium Chloride 10 ml 04/27/25 14:04 Sodium Chloride Flush 0.9% 10 Ml Syringe IVP PRN PRN NEEDED PER PROVIDER ORDERS Sodium Chloride 10 ml 04/27/25 17:00 04/28/25 02:51 Sodium Chloride Flush 0.9% 10 Ml Syringe IVP Not Given 0100,0900,1700 [facility] Objective Vital Signs/Intake & Output Reviewed Vital Signs: Yes Vital Signs: Vital Signs x48h Temp Pulse Resp BP Pulse Ox 04/27/25 23:36 36.5 C 81 20 153/70 H 95 Intake & Output: Intake & Output 04/25/25 04/26/25 04/27/25 04/28/25 23:59 23:59 23:59 23:59 Intake Total 1510 / 1510 Output Total 450 / 450 Balance 1510 / 1510 -450 / -450 Weight (kg) 80 kg Objective Comments/Other: GEN: No acute distress HEENT: NC/AT, normal appearance of external ears and nose. Hearing baseline. Cardiac: Regular rate and rhythm, no murmurs. Euvolemic on exam. Pulm: Lungs CTA bilaterally, no cough, no wheezes. Normal effort on room air Abdomen: Soft, nontender, nondistended. No rebound or guarding Extremities: Erythematous, edematous, and tender region along the anterior hernandez extending from the ankle to the knee. Demarcated in the ED, has not extended beyond demarcation line. Associated effusion in her right knee. Tender. Her effusion is ballotable, tender, not particular erythematous. Neuro: Face symmetric, CN II through XII intact grossly. No focal neurologic deficits. Psych: Mood euthymic with congruent affect. Judgment intact. Good fund of knowledge. Lab Results 04/28/25 06:12 04/28/25 06:12 Other Labs: Lab Results x24hrs 04/28/25 04/27/25 04/27/25 Range/Units 06:12 20:58 17:27 WBC 9.0 (4.8-10.8) x10^3/uL RBC 4.37 (4.20-5.40) 10^6/uL Hgb 12.0 (12.0-16.0) g/dL Hct 38.1 (37.0-47.0) % MCV 87.2 (81.0-99.0) fL MCH 27.5 (27.0-31.0) pg MCHC 31.5 L (32.0-36.0) g/dL RDW 13.7 (12.0-15.0) % Plt Count 380 (130-450) 10^3/uL MPV 9.4 (7.9-10.8) fL Neut # (Auto) 5.2 (1.5-6.6) 10^3/uL Lymph # (Auto) 2.9 (1.5-3.5) 10^3/uL [place] # (Auto) 0.6 (0.0-1.0) 10^3/uL Eos # (Auto) 0.2 (0.0-0.7) 10^3/uL Baso # (Auto) 0.0 (0.0-0.1) 10^3/uL Absolute Nucleated RBC 0.00 x10^3/uL Nucleated RBC % 0.0 /100WBC ESR (0-30) mm/Hr Sodium 136 (135-145) mmol/L Potassium 4.1 (3.5-4.5) mmol/L Chloride 97 L (101-111) mmol/L Carbon Dioxide 31 (21-32) mmol/L Anion Gap 8.0 (6-13) BUN 19 (6-20) mg/dL Creatinine 1.1 (0.6-1.3) mg/dL Estimated GFR (MDRD) 49 L (>89) Glucose 83 (74-104) mg/dL POC Whole Bld Glucose 188 149 (70-100) mg/dL Lactic Acid (0.5-2.2) mmol/L Calcium 9.3 (8.5-10.3) mg/dL Magnesium (1.7-2.3) mg/dL Total Bilirubin 0.5 (0.2-1.0) mg/dL AST 37 (10-42) IU/L ALT 34 (10-60) IU/L Alkaline Phosphatase 165 H (42-121) IU/L Total Creatine Kinase (30-223) IU/L C-Reactive Protein 16.9 H (<0.5) mg/dL Total Protein 7.5 (6.4-8.9) g/dL Albumin 3.6 (3.2-5.5) g/dL Globulin 3.9 (2.1-4.2) g/dL Albumin/Globulin Ratio 0.9 L (1.0-2.2) Lipase (11-82) U/L Fluid Source Fluid Color Fluid Clarity Fluid WBC /mm^3 Fluid RBC /mm^3 Fluid Neutrophils % % Fluid Lymphocytes % % Fluid Monocytes % % Fluid Macrophages % % Fld Mesothelial Cell % Fluid Crystals 04/27/25 04/27/25 04/27/25 Range/Units 14:00 12:03 09:21 WBC (4.8-10.8) x10^3/uL RBC (4.20-5.40) 10^6/uL Hgb (12.0-16.0) g/dL Hct (37.0-47.0) % MCV (81.0-99.0) fL MCH (27.0-31.0) pg MCHC (32.0-36.0) g/dL RDW (12.0-15.0) % Plt Count (130-450) 10^3/uL MPV (7.9-10.8) fL Neut # (Auto) (1.5-6.6) 10^3/uL Lymph # (Auto) (1.5-3.5) 10^3/uL [place] # (Auto) (0.0-1.0) 10^3/uL Eos # (Auto) (0.0-0.7) 10^3/uL Baso # (Auto) (0.0-0.1) 10^3/uL Absolute Nucleated RBC x10^3/uL Nucleated RBC % /100WBC ESR 107 H (0-30) mm/Hr Sodium (135-145) mmol/L Potassium (3.5-4.5) mmol/L Chloride (101-111) mmol/L Carbon Dioxide (21-32) mmol/L Anion Gap (6-13) BUN (6-20) mg/dL Creatinine (0.6-1.3) mg/dL Estimated GFR (MDRD) (>89) Glucose (74-104) mg/dL POC Whole Bld Glucose (70-100) mg/dL Lactic Acid (0.5-2.2) mmol/L Calcium (8.5-10.3) mg/dL Magnesium (1.7-2.3) mg/dL Total Bilirubin (0.2-1.0) mg/dL AST (10-42) IU/L ALT (10-60) IU/L Alkaline Phosphatase (42-121) IU/L Total Creatine Kinase (30-223) IU/L C-Reactive Protein (<0.5) mg/dL Total Protein (6.4-8.9) g/dL Albumin (3.2-5.5) g/dL Globulin (2.1-4.2) g/dL Albumin/Globulin Ratio (1.0-2.2) Lipase (11-82) U/L Fluid Source SYNOVIAL SYNOVIAL Fluid Color YELLOW YELLOW Fluid Clarity CLOUDY CLOUDY Fluid WBC 98549 51849 /mm^3 Fluid RBC < 3000 < 3000 /mm^3 Fluid Neutrophils % 92 90 % Fluid Lymphocytes % 1 2 % Fluid Monocytes % 3 5 % Fluid Macrophages % 4 3 % Fld Mesothelial Cell % Not Reportable Not Reportable Fluid Crystals NONE SEEN 04/27/25 Range/Units 08:44 WBC 9.7 (4.8-10.8) x10^3/uL RBC 4.28 (4.20-5.40) 10^6/uL Hgb 11.7 L (12.0-16.0) g/dL Hct 36.8 L (37.0-47.0) % MCV 86.0 (81.0-99.0) fL MCH 27.3 (27.0-31.0) pg MCHC 31.8 L (32.0-36.0) g/dL RDW 14.1 (12.0-15.0) % Plt Count 363 (130-450) 10^3/uL MPV 8.9 (7.9-10.8) fL Neut # (Auto) 6.4 (1.5-6.6) 10^3/uL Lymph # (Auto) 2.3 (1.5-3.5) 10^3/uL [place] # (Auto) 0.6 (0.0-1.0) 10^3/uL Eos # (Auto) 0.1 (0.0-0.7) 10^3/uL Baso # (Auto) 0.1 (0.0-0.1) 10^3/uL Absolute Nucleated RBC 0.00 x10^3/uL Nucleated RBC % 0.0 /100WBC ESR (0-30) mm/Hr Sodium 135 (135-145) mmol/L Potassium 4.3 (3.5-4.5) mmol/L Chloride 98 L (101-111) mmol/L Carbon Dioxide 27 (21-32) mmol/L Anion Gap 10.0 (6-13) BUN 16 (6-20) mg/dL Creatinine 1.1 (0.6-1.3) mg/dL Estimated GFR (MDRD) 49 L (>89) Glucose 87 (74-104) mg/dL POC Whole Bld Glucose (70-100) mg/dL Lactic Acid 1.0 (0.5-2.2) mmol/L Calcium 9.3 (8.5-10.3) mg/dL Magnesium 1.8 (1.7-2.3) mg/dL Total Bilirubin 0.7 (0.2-1.0) mg/dL AST 35 (10-42) IU/L ALT 32 (10-60) IU/L Alkaline Phosphatase 177 H (42-121) IU/L Total Creatine Kinase 34 (30-223) IU/L C-Reactive Protein 13.5 H (<0.5) mg/dL Total Protein 7.5 (6.4-8.9) g/dL Albumin 3.5 (3.2-5.5) g/dL Globulin 4.0 (2.1-4.2) g/dL Albumin/Globulin Ratio 0.9 L (1.0-2.2) Lipase < 10 L (11-82) U/L Fluid Source Fluid Color Fluid Clarity Fluid WBC /mm^3 Fluid RBC /mm^3 Fluid Neutrophils % % Fluid Lymphocytes % % Fluid Monocytes % % Fluid Macrophages % % Fld Mesothelial Cell % Fluid Crystals Sepsis Event Note (H) Evaluation Current Stage of Sepsis: Ruled out Assessment/Plan Problem List (1) Septic arthritis: Qualifiers: Laterality: right Septic arthritis location: knee Septic arthritis organism: due to unspecified organism Qualified Code(s): M00.9 - Pyogenic arthritis, unspecified (2) Cellulitis: Impression: Intervally minimally improved. She continues on IV vancomycin. CRP is up slightly to 16.9. ESR is down slightly to 98. Overall equivocal Recall that she presented with 1 week of worsening right lower extremity warmth and redness. Was previously seen at this hospital 04/21 through 04/23. She has been taking Augmentin at home with little improvement. Immunosuppressed in the setting of her liver transplant as below. No signs or symptoms of systemic illness. She is afebrile. Normal white count. No septic physiology. CRP 13.5, ESR 107. CT with soft tissue findings. No abscesses or gas seen. No DVT. Joint was tapped in the ED and again by orthopedics. 2 fluid samples were sent to the lab. No crystals were seen on the first sample. There are elevated white blood cells in the joint. Neutrophilic predominance. No organisms seen on the second sample. There are GPC's seen on the first. Orthopedic surgery believes this is more likely to be a crystalline arthropathy associated joint effusion given the limited cellularity. Septic joints typically have greater than 50,000 WBC. - Continue to follow-up on synovial fluid cultures, NGTD - Continue vancomycin monotherapy, appreciate pharmacy - Continue immunosuppression as below - Trend CBC, CRP, ESR a.m. - Continue pain management with scheduled Tylenol 325, 4 times daily per patient's request, as needed narcotics available - Continue encourage predictability - PT evaluation - Continue to manage blood sugars as below. - Discussed with orthopedic surgery 04/28, they remain unconvinced that this is a septic joint. Will continue antibiotics for cellulitis. Follow-up cultures Qualifiers: Site of cellulitis: unspecified site Qualified Code(s): L03.90 - Cellulitis, unspecified (3) History of liver transplant: (4) Immunosuppressed status: Impression: Stable. Liver enzymes stable. No signs of systemic illness. Patient reportedly received her liver transplant in 2006. She has had an uneventful course since her liver transplant. She has been on sirolimus 1 mg daily since 2008 approximately. No significant sequelae of her chronic immunosuppression. She follows regularly with the posttransplant team at the [facility]. 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 I am opting on admission not to discontinue her immunosuppression - Continue sirolimus 1 mg p.o. daily - If she clinically worsens with regard to her infection, she should be transferred to transplant center by guideline. - Monitor CMP a.m. (5) Diabetes mellitus: Impression: Blood sugars low this morning at 83 dropping to 57 and Premeal. Did not receive her a.m. glargine this morning. Has not been eating much. Patient with longstanding history of insulin-dependent diabetes. Her home regimen is 30 units SQ glargine twice daily with 1 to 15 units sliding scale lispro with meals. Her diabetes complicated by diabetic peripheral neuropathy. This is managed with gabapentin 800 mg p.o. twice daily. - Continue gabapentin 800 mg p.o. twice daily, monitor renal function - Glargine 30 units nightly, half home dose - Monitor blood glucoses [id number] q. ACHS - Moderate dose sliding scale - Carb controlled diet (6) Hypothyroid: Impression: History of acquired hypothyroidism. No ike signs of hyper or hypothyroidism. - Continue home dose levothyroxine 88 mcg daily (7) Hyperlipidemia: Impression: Patient with history of hypertriglyceridemia and mixed hyperlipidemia. She is on fenofibrate 54 mg nightly and pravastatin 40 mg nightly. I do not have access to her outpatient lipid profile, but reportedly this is controlled. - Continue [employer] fenofibrate 54 mg nightly - Continue pravastatin 40 mg nightly I spent a total of 42 minutes in the care of this patient today. This time was spent reviewing labs, vital signs, imaging, interviewing and examining the patient, and discussing plan of care with them and their other care providers. Treating an acute illness that poses risk to life and bodily function. She has a risk of dying or losing her leg from her leg infection. Review of data as above. Discussed her case with orthopedic surgery today, they are in agreement with continuing antibiotics. No washout at this time. [id number]
--- NOTE | 2025-04-28 07:51 | POST OP PROGRESS NOTE ---
Subjective General Admit Date: 04/27/25 Other Other Information/Narrative: no overnight events, reports no increase in pain, no fevers or chills. Ortho Surgical Progress Note Problem List Problem List: Right Lower Extremity Cellulitis Repeat knee aspiration by myself last night demonstrated 50cc of clear yellow fluid and 19,000WBC, well below [place] septic joint value of 50,000. additionally, CT scan shows advanced degenerative changes of the knee joint with significant chondrocalcinosis most consistent with calcium pyrophosphate disease or pseudogout. This can still exist even in absence of crystals identified on manual lab assessment. her clinical exam and values are not consistent with septic arthritis. CT scan and exam do not reveal any deep space abscess or drainable fluid collection and the cellulitis remains stable without signs of advancing or worsenning in since admission yesterday. she remains hemodynamically stable. Given these findins I do not think surgical intervention is indicated at this time, but will continue to follow her. Case discussed with hospitalist today as well. Exam Exam Nontoxic-appearing patient cooperative with exam. sleeping comfortably this morning. Focused exam of the right lower extremity demonstrates diffuse edema of the right leg there is a diffuse area of erythema distal to the knee joint. this is relatively unchanged from yesterday and has not progressed beyond the lines. the compartments are soft and compressible. She has no palpable fluctuance and no palpable crepitus. The knee has a mild-sized effusion and is not on erythematous. She has a bounding distal pulse and the extremity is warm and well-perfused. Motor is intact. She has baseline peripheral neuropathy.
[2025-04-28] MEDS: ACETAMINOPHEN 500 MG TABLET PO SCH (09:04)
[2025-04-28] MEDS ORDERED: ACETAMINOPHEN 325 MG TABLET PO PRN (12:17)
[2025-04-28] MEDS: ACETAMINOPHEN 325 MG TABLET PO SCH (13:32)
[2025-04-28] MEDS: VANCOMYCIN INJ 1 GM, VANCOMYCIN INJ 500 MG in SODIUM CHLORIDE 0.9% 500 ML IV SCH (16:09)
[2025-04-28] MEDS ORDERED: DEXTROSE 50% ABBOJECT 25 GM/50 ML SYRINGE ONE (16:51)
[2025-04-28] MEDS: DEXTROSE 40% GEL 37.5 GM TUBE PO ONE (18:25)
[2025-04-28] MEDS ORDERED: INSULIN GLARGINE-YFGN 300 UNIT/3 ML PEN SUBQ SCH (21:00)
[2025-04-28] MEDS ORDERED: FENOFIBRATE 48 MG TABLET PO SCH (21:00)
[2025-04-28] MEDS: INSULIN GLARGINE-YFGN 300 UNIT/3 ML PEN SUBQ SCH (21:38)
--- NOTE | 2025-04-29 04:14 | PROVIDER PROGRESS NOTE ---
Hospitalist Cross-cover Note Cross-Cover Note Cross-Cover Note: Multiple episodes of hypoglycemia, chart is reviewed, Lantus is reduced to 10 units (reduced to half from 20 U) and 3 hrs of D5NS@50 ml/hr is started, given hx of Diabetes stop IVF at 7am , rounding hospitalist to follow, monitor for hypoglycemia
[2025-04-29] MEDS: DEXTROSE 5%-0.9% NACL 1,000 ML IV SCH (04:37)
[2025-04-29 06:08] LABS: HCT - HEMATOCRIT 37.0 % (37.0-47.0); HGB - HEMOGLOBIN 11.4 g/dL (12.0-16.0); MEAN PLATELET VOLUME 9.0 fL (7.9-10.8); NRBC ABSOLUTE COUNT (AUTO) 0.00 x10^3/uL; NUCLEATED RED BLOOD CELLS AUTO 0.0 /100WBC; PLT - PLATELET COUNT 364 10^3/uL (130-450); RED CELL DISTRIBUTION WIDTH 13.7 % (12.0-15.0)
[2025-04-29 06:26] LABS: ALT ALANINE AMINOTRANSFERASE 33.0 IU/L (10-60); AST ASPARTATE AMINOTRANSFERASE 43.0 IU/L (10-42); BUN - BLOOD UREA NITROGEN 19.0 mg/dL (6-20); CARBON DIOXIDE - CO2 31.0 mmol/L (21-32); CREATININE 1.2 mg/dL (0.6-1.3); CRP - C-REACTIVE PROTEIN 15.4 mg/dL (<0.5); GFR - MDRD 44.0 (>89)
--- NOTE | 2025-04-29 11:32 | PROVIDER PROGRESS NOTE ---
Subjective Prog Note Date Prog Note Date: 04/29/25 Prog Note Time: 11:28 Subjective Subjective: Patient had episode of hypoglycemia overnight. Blood sugars nadired at 48. 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 Her insulin has been cut back even further from yesterday. Continuing to monitor. Patient additionally had blood cultures drawn yesterday that came back positive for GPC's in clusters. They have speciated on PCR as staph epi. Repeating blood cultures today. Her inflammatory markers are not improving. Her ESR is 105, CRP 15.4. Potassium mildly elevated at 5.1. AST is up intervally 37-43. Otherwise her labs remain stable. Patient feels reasonably well today. She feels like the pain in her leg is improving. She was able to sit in the chair for 2 hours yesterday which is something she has not been able to do since this began. Her erythema in her leg is receding from the demarcation line. Current Medications Current Medications Current Medications: Current Medications Generic Name Dose Route Start Last Admin Trade Name Freq PRN Reason Stop Dose Admin Acetaminophen 325 mg 04/28/25 12:17 Acetaminophen 325 Mg Tablet PO Q4HR PRN Pain 1 to 4, or Fever Acetaminophen 325 mg 04/28/25 13:00 04/29/25 08:11 Acetaminophen 325 Mg Tablet PO 325 mg QID HERLINDA Administration Fenofibrate 48 mg 04/27/25 21:41 04/28/25 21:36 Fenofibrate 48 Mg Tablet PO 48 mg QPM HERLINDA Administration Gabapentin 800 mg 04/27/25 21:00 04/29/25 08:11 Gabapentin 400 Mg Capsule PO 800 mg BID HERLINDA Administration Vancomycin HCl 1 gm/ 500 mls @ 250 mls/hr 04/28/25 16:00 04/28/25 18:09 Vancomycin HCl 500 mg/ Sodium IV Infused Chloride Q24H HERLINDA Infusion Insulin Glargine-yfgn 10 unit 04/29/25 21:00 Insulin Glargine-Yfgn 300 Unit/3 Ml Pen SUBQ QPM HERLINDA Insulin Human Lispro 1 - 9 unit 04/27/25 17:00 04/29/25 08:13 Insulin Lispro 300 Unit/3 Ml Pen SUBQ 1 unit 0800,1200,1700,2100 HERLINDA Administration Protocol Levothyroxine Sodium 88 mcg 04/28/25 07:00 04/29/25 05:41 Levothyroxine 88 Mcg Tablet PO 88 mcg QDAC HERLINDA Administration Ondansetron HCl 4 mg 04/27/25 14:04 Ondansetron Odt 4 Mg Tablet TL Q6HR PRN Nausea / Vomiting Ondansetron HCl 4 mg 04/27/25 14:04 Ondansetron 4 Mg/2 Ml Vial IVP Q6HR PRN Nausea / Vomiting Oxycodone HCl 5 mg 04/27/25 14:04 04/29/25 05:41 Oxycodone 5 Mg Tablet PO 5 mg Q4HR PRN Administration Pain 5 to 7 Oxycodone HCl 10 mg 04/27/25 14:04 Oxycodone 5 Mg Tablet PO Q4HR PRN Pain 8 to 10 Patient Own Med - 1 each 04/28/25 09:00 04/29/25 08:12 Sirolimus [Rapamune] PO 1 each 1 Mg Tablet DAILY HERLINDA Administration Pravastatin Sodium 40 mg 04/27/25 21:00 04/28/25 21:36 Pravastatin 40 Mg Tablet PO 40 mg QPM HERLINDA Administration Sodium Chloride 10 ml 04/27/25 14:04 Sodium Chloride Flush 0.9% 10 Ml Syringe IVP PRN PRN NEEDED PER PROVIDER ORDERS Sodium Chloride 10 ml 04/27/25 17:00 04/29/25 08:12 Sodium Chloride Flush 0.9% 10 Ml Syringe IVP 10 ml 0100,0900,1700 HERLINDA Administration Objective Vital Signs/Intake & Output Reviewed Vital Signs: Yes Vital Signs: Vital Signs x48h Temp Pulse Resp BP Pulse Ox 04/29/25 07:43 36.4 C L 79 16 124/73 97 Intake & Output: Intake & Output 04/26/25 04/27/25 04/28/25 04/29/25 23:59 23:59 23:59 23:59 Intake Total 1510 / 1510 1780 / 1780 619 / 619 Output Total 650 / 650 550 / 550 Balance 1510 / 1510 1130 / 1130 69 / 69 Weight (kg) 80 kg Objective Comments/Other: GEN: No acute distress. Lying in bed HEENT: NC/AT, normal appearance of external ears and nose. Hearing baseline. Cardiac: Regular rate and rhythm, no murmurs. Euvolemic on exam. Pulm: Lungs CTA bilaterally, no cough, no wheezes. Normal effort on room air Abdomen: Soft, nontender, nondistended. No rebound or guarding Extremities: Erythematous, edematous, and tender region along the anterior hernandez extending from the ankle to the knee. Demarcated in the ED, receding from demarcation line. Associated effusion in her right knee. Tender. Her effusion is ballotable, tender, not particular erythematous. Neuro: Face symmetric, CN II through XII intact grossly. No focal neurologic deficits. Psych: Mood euthymic with congruent affect. Judgment intact. Good fund of knowledge. Lab Results 04/29/25 05:57 04/29/25 05:57 Other Labs: Lab Results x24hrs 04/29/25 04/29/25 04/29/25 Range/Units 07:47 05:57 05:07 WBC 8.2 (4.8-10.8) x10^3/uL RBC 4.19 L (4.20-5.40) 10^6/uL Hgb 11.4 L (12.0-16.0) g/dL Hct 37.0 (37.0-47.0) % MCV 88.3 (81.0-99.0) fL MCH 27.2 (27.0-31.0) pg MCHC 30.8 L (32.0-36.0) g/dL RDW 13.7 (12.0-15.0) % Plt Count 364 (130-450) 10^3/uL MPV 9.0 (7.9-10.8) fL Neut # (Auto) 5.1 (1.5-6.6) 10^3/uL Lymph # (Auto) 2.2 (1.5-3.5) 10^3/uL Treasure # (Auto) 0.6 (0.0-1.0) 10^3/uL Eos # (Auto) 0.2 (0.0-0.7) 10^3/uL Baso # (Auto) 0.1 (0.0-0.1) 10^3/uL Absolute Nucleated RBC 0.00 x10^3/uL Nucleated RBC % 0.0 /100WBC ESR 105 H (0-30) mm/Hr Sodium 136 (135-145) mmol/L Potassium 5.1 H (3.5-4.5) mmol/L Chloride 98 L (101-111) mmol/L Carbon Dioxide 31 (21-32) mmol/L Anion Gap 7.0 (6-13) BUN 19 (6-20) mg/dL Creatinine 1.2 (0.6-1.3) mg/dL Estimated GFR (MDRD) 44 L (>89) Glucose 154 H (74-104) mg/dL POC Whole Bld Glucose 158 145 (70-100) mg/dL Calcium 9.0 (8.5-10.3) mg/dL Total Bilirubin 0.5 (0.2-1.0) mg/dL AST 43 H (10-42) IU/L ALT 33 (10-60) IU/L Alkaline Phosphatase 168 H (42-121) IU/L C-Reactive Protein 15.4 H (<0.5) mg/dL Total Protein 7.3 (6.4-8.9) g/dL Albumin 3.4 (3.2-5.5) g/dL Globulin 3.9 (2.1-4.2) g/dL Albumin/Globulin Ratio 0.9 L (1.0-2.2) 04/29/25 04/29/25 04/29/25 Range/Units 04:02 03:40 03:04 WBC (4.8-10.8) x10^3/uL RBC (4.20-5.40) 10^6/uL Hgb (12.0-16.0) g/dL Hct (37.0-47.0) % MCV (81.0-99.0) fL MCH (27.0-31.0) pg MCHC (32.0-36.0) g/dL RDW (12.0-15.0) % Plt Count (130-450) 10^3/uL MPV (7.9-10.8) fL Neut # (Auto) (1.5-6.6) 10^3/uL Lymph # (Auto) (1.5-3.5) 10^3/uL Treasure # (Auto) (0.0-1.0) 10^3/uL Eos # (Auto) (0.0-0.7) 10^3/uL Baso # (Auto) (0.0-0.1) 10^3/uL Absolute Nucleated RBC x10^3/uL Nucleated RBC % /100WBC ESR (0-30) mm/Hr Sodium (135-145) mmol/L Potassium (3.5-4.5) mmol/L Chloride (101-111) mmol/L Carbon Dioxide (21-32) mmol/L Anion Gap (6-13) BUN (6-20) mg/dL Creatinine (0.6-1.3) mg/dL Estimated GFR (MDRD) (>89) Glucose (74-104) mg/dL POC Whole Bld Glucose 93 56 48 (70-100) mg/dL Calcium (8.5-10.3) mg/dL Total Bilirubin (0.2-1.0) mg/dL AST (10-42) IU/L ALT (10-60) IU/L Alkaline Phosphatase (42-121) IU/L C-Reactive Protein (<0.5) mg/dL Total Protein (6.4-8.9) g/dL Albumin (3.2-5.5) g/dL Globulin (2.1-4.2) g/dL Albumin/Globulin Ratio (1.0-2.2) 04/29/25 04/28/25 04/28/25 Range/Units 00:01 20:48 17:20 WBC (4.8-10.8) x10^3/uL RBC (4.20-5.40) 10^6/uL Hgb (12.0-16.0) g/dL Hct (37.0-47.0) % MCV (81.0-99.0) fL MCH (27.0-31.0) pg MCHC (32.0-36.0) g/dL RDW (12.0-15.0) % Plt Count (130-450) 10^3/uL MPV (7.9-10.8) fL Neut # (Auto) (1.5-6.6) 10^3/uL Lymph # (Auto) (1.5-3.5) 10^3/uL Treasure # (Auto) (0.0-1.0) 10^3/uL Eos # (Auto) (0.0-0.7) 10^3/uL Baso # (Auto) (0.0-0.1) 10^3/uL Absolute Nucleated RBC x10^3/uL Nucleated RBC % /100WBC ESR (0-30) mm/Hr Sodium (135-145) mmol/L Potassium (3.5-4.5) mmol/L Chloride (101-111) mmol/L Carbon Dioxide (21-32) mmol/L Anion Gap (6-13) BUN (6-20) mg/dL Creatinine (0.6-1.3) mg/dL Estimated GFR (MDRD) (>89) Glucose (74-104) mg/dL POC Whole Bld Glucose 87 197 75 (70-100) mg/dL Calcium (8.5-10.3) mg/dL Total Bilirubin (0.2-1.0) mg/dL AST (10-42) IU/L ALT (10-60) IU/L Alkaline Phosphatase (42-121) IU/L C-Reactive Protein (<0.5) mg/dL Total Protein (6.4-8.9) g/dL Albumin (3.2-5.5) g/dL Globulin (2.1-4.2) g/dL Albumin/Globulin Ratio (1.0-2.2) 04/28/25 04/28/25 04/28/25 Range/Units 16:48 16:35 11:36 WBC (4.8-10.8) x10^3/uL RBC (4.20-5.40) 10^6/uL Hgb (12.0-16.0) g/dL Hct (37.0-47.0) % MCV (81.0-99.0) fL MCH (27.0-31.0) pg MCHC (32.0-36.0) g/dL RDW (12.0-15.0) % Plt Count (130-450) 10^3/uL MPV (7.9-10.8) fL Neut # (Auto) (1.5-6.6) 10^3/uL Lymph # (Auto) (1.5-3.5) 10^3/uL Treasure # (Auto) (0.0-1.0) 10^3/uL Eos # (Auto) (0.0-0.7) 10^3/uL Baso # (Auto) (0.0-0.1) 10^3/uL Absolute Nucleated RBC x10^3/uL Nucleated RBC % /100WBC ESR (0-30) mm/Hr Sodium (135-145) mmol/L Potassium (3.5-4.5) mmol/L Chloride (101-111) mmol/L Carbon Dioxide (21-32) mmol/L Anion Gap (6-13) BUN (6-20) mg/dL Creatinine (0.6-1.3) mg/dL Estimated GFR (MDRD) (>89) Glucose (74-104) mg/dL POC Whole Bld Glucose 47 50 151 (70-100) mg/dL Calcium (8.5-10.3) mg/dL Total Bilirubin (0.2-1.0) mg/dL AST (10-42) IU/L ALT (10-60) IU/L Alkaline Phosphatase (42-121) IU/L C-Reactive Protein (<0.5) mg/dL Total Protein (6.4-8.9) g/dL Albumin (3.2-5.5) g/dL Globulin (2.1-4.2) g/dL Albumin/Globulin Ratio (1.0-2.2) Sepsis Event Note (H) Evaluation Current Stage of Sepsis: Ruled out Assessment/Plan Problem List (1) Septic arthritis: Qualifiers: Septic arthritis location: knee Septic arthritis organism: due to unspecified organism Laterality: right Qualified Code(s): M00.9 - Pyogenic arthritis, unspecified (2) Cellulitis: Impression: Continues to intervally improved. Her pain is improving, erythema is receding. CRP and ESR remain high. Positive blood cultures as below. Recall that she presented with 1 week of worsening right lower extremity warmth and redness. Was previously seen at this hospital 04/21 through 04/23. She has been taking Augmentin at home with little improvement. She had some fever on initial presentation on the 04/21, but since then has had no systemic signs of illness. Afebrile. No leukocytosis. Immunosuppressed in the setting of her liver transplant as below. On admission: CRP 13.5, ESR 107. CT with soft tissue findings. No abscesses or gas seen. No DVT. Joint was tapped in the ED and again by orthopedics. 2 fluid samples were sent to the lab. No crystals were seen on the first sample. There are elevated white blood cells in the joint. Neutrophilic predominance. No organisms seen on the second sample. There are GPC's seen on the first. Orthopedic surgery believes this is more likely to be a crystalline arthropathy associated joint effusion given the limited cellularity. Septic joints typically have greater than 50,000 WBC. I do question about cellularity in the setting of her immunosuppression - In brief review of the literature, it does not appear that immunosuppression significantly alter synovial fluid inflammatory response (Young et al 2018). More to the point, she had had antibiotics prior to this which may have lowered her inflammatory response (Harris et al 2020). - Continue to follow-up on synovial fluid cultures, NGTD - Continue vancomycin monotherapy, appreciate pharmacy - Continue immunosuppression as below - Trend CBC, CRP, ESR a.m. - Continue pain management with scheduled Tylenol 325, 4 times daily per patient's request, as needed narcotics available - Encourage mobility - PT evaluation ordered - Blood cx as below - Continue to manage blood sugars as below. - Discussed with orthopedic surgery 04/28, they remain unconvinced that this is a septic joint. Will continue antibiotics for cellulitis. Follow-up cultures Qualifiers: Site of cellulitis: unspecified site Qualified Code(s): L03.90 - Cellulitis, unspecified (3) Blood culture positive: Impression: Patient had blood cultures which were drawn on 04/28. These grew positive for GPC's, speciated as staph epi on 04/29. In prospective studies in [place], 17% of coag negative staph blood cultures represent true bacteremia. She continues to not demonstrate septic physiology. Afebrile. Normal vital signs. If she does have true gram-positive bacteremia, she will need to be transferred for FABRIZIO, and management of bloodstream infection under the supervision of her posttransplant team. - Will get TTE - Repeat blood cultures today - Monitor repeat blood cultures, allow 48 hours for maturity - Continue vancomycin as above (4) History of liver transplant: (5) Immunosuppressed status: Impression: Stable. AST minimally elevated today, but liver enzymes generally stable. No signs of systemic illness. Patient reportedly received her liver transplant in 2006. She has had an uneventful course since her liver transplant. She has been on sirolimus 1 mg daily since 2008 approximately. No significant sequelae of her chronic immunosuppression. She follows regularly with the posttransplant team at the [facility]. 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 I am opting on admission not to discontinue her immunosuppression - Continue sirolimus 1 mg p.o. daily - If she clinically worsens with regard to her infection, she should be transferred to transplant center by guideline. - Monitor CMP a.m. (6) Diabetes mellitus: Impression: Blood sugars have dropped precipitously requiring frequent cutbacks of her insulin regimen. She required D5 overnight last night. Blood sugars now 170s. Patient with longstanding history of insulin-dependent diabetes. Her home regimen is 30 units SQ glargine twice daily with 1 to 15 units sliding scale lispro with meals. Her diabetes complicated by diabetic peripheral neuropathy. This is managed with gabapentin 800 mg p.o. twice daily. - Continue gabapentin 800 mg p.o. twice daily, monitor renal function - Further reduce glargine to 10 units nightly - Monitor blood glucoses [id number] qACHS - Low dose sliding scale - Carb controlled diet (7) Hypothyroid: Impression: History of acquired hypothyroidism. No ike signs of hyper or hypothyroidism. - Continue home dose levothyroxine 88 mcg daily (8) Hyperlipidemia: Impression: Patient with history of hypertriglyceridemia and mixed hyperlipidemia. She is on fenofibrate 54 mg nightly and pravastatin 40 mg nightly. I do not have access to her outpatient lipid profile, but reportedly this is controlled. - Continue [employer] fenofibrate 54 mg nightly - Continue pravastatin 40 mg nightly I spent a total of 51 minutes in the care of this patient today. This time was spent reviewing labs, vital signs, imaging, interviewing and examining the patient, and discussing plan of care with them and their other care providers. Continues to be acutely ill with risk to life or bodily function. Data review as above. On drug therapy requiring intensive monitoring for toxicity on vancomycin. [id number]
[2025-04-29] MEDS: INSULIN GLARGINE-YFGN 300 UNIT/3 ML PEN SUBQ SCH (21:39)
[2025-04-30 06:21] LABS: HCT - HEMATOCRIT 40.1 % (37.0-47.0); HGB - HEMOGLOBIN 12.0 g/dL (12.0-16.0); MEAN PLATELET VOLUME 8.8 fL (7.9-10.8); NRBC ABSOLUTE COUNT (AUTO) 0.00 x10^3/uL; NUCLEATED RED BLOOD CELLS AUTO 0.0 /100WBC; PLT - PLATELET COUNT 419 10^3/uL (130-450); RED CELL DISTRIBUTION WIDTH 13.7 % (12.0-15.0)
[2025-04-30 06:38] LABS: ALT ALANINE AMINOTRANSFERASE 25.0 IU/L (10-60); AST ASPARTATE AMINOTRANSFERASE 24.0 IU/L (10-42); BUN - BLOOD UREA NITROGEN 20.0 mg/dL (6-20); CARBON DIOXIDE - CO2 31.0 mmol/L (21-32); CREATININE 1.4 mg/dL (0.6-1.3); GFR - MDRD 37.0 (>89)
--- NOTE | 2025-04-30 07:44 | PROVIDER PROGRESS NOTE ---
Subjective Prog Note Date Prog Note Date: 04/30/25 Prog Note Time: 07:39 Subjective Subjective: Blood cultures ordered yesterday were not drawn until this morning. No other acute events overnight. She is doing well. Remains afebrile. Vital signs remained stable. She has some improvement in her pain. Her blood sugars have stabilized on her insulin regimen. Nadired at 107 this morning. Hopefully to work with PT today. She reports her pain in her leg is improved from days prior. She feels like she is getting better generally. Less tender throughout her leg. Current Medications Current Medications Current Medications: Current Medications Generic Name Dose Route Start Last Admin Trade Name Freq PRN Reason Stop Dose Admin Acetaminophen 325 mg 04/28/25 12:17 Acetaminophen 325 Mg Tablet PO Q4HR PRN Pain 1 to 4, or Fever Acetaminophen 325 mg 04/28/25 13:00 04/29/25 21:41 Acetaminophen 325 Mg Tablet PO 325 mg QID HERLINDA Administration Fenofibrate 48 mg 04/27/25 21:41 04/29/25 21:41 Fenofibrate 48 Mg Tablet PO 48 mg QPM HERLINDA Administration Gabapentin 800 mg 04/27/25 21:00 04/29/25 21:41 Gabapentin 400 Mg Capsule PO 800 mg BID HERLINDA Administration Vancomycin HCl 1 gm/ 500 mls @ 250 mls/hr 04/28/25 16:00 04/29/25 19:18 Vancomycin HCl 500 mg/ Sodium IV Infused Chloride Q24H HERLINDA Infusion Insulin Glargine-yfgn 10 unit 04/29/25 21:00 04/29/25 21:39 Insulin Glargine-Yfgn 300 Unit/3 Ml Pen SUBQ 10 unit QPM HERLINDA Administration Insulin Human Lispro 1 - 9 unit 04/27/25 17:00 04/29/25 21:39 Insulin Lispro 300 Unit/3 Ml Pen SUBQ 1 unit 0800,1200,1700,2100 HERLINDA Administration Protocol Levothyroxine Sodium 88 mcg 04/28/25 07:00 04/30/25 05:45 Levothyroxine 88 Mcg Tablet PO 88 mcg QDAC HERLINDA Administration Ondansetron HCl 4 mg 04/27/25 14:04 Ondansetron Odt 4 Mg Tablet TL Q6HR PRN Nausea / Vomiting Ondansetron HCl 4 mg 04/27/25 14:04 Ondansetron 4 Mg/2 Ml Vial IVP Q6HR PRN Nausea / Vomiting Oxycodone HCl 5 mg 04/27/25 14:04 04/29/25 18:55 Oxycodone 5 Mg Tablet PO 5 mg Q4HR PRN Administration Pain 5 to 7 Oxycodone HCl 10 mg 04/27/25 14:04 Oxycodone 5 Mg Tablet PO Q4HR PRN Pain 8 to 10 Patient Own Med - 1 each 04/28/25 09:00 04/29/25 08:12 Sirolimus [Rapamune] PO 1 each 1 Mg Tablet DAILY HERLINDA Administration Pravastatin Sodium 40 mg 04/27/25 21:00 04/29/25 21:41 Pravastatin 40 Mg Tablet PO 40 mg QPM HERLINDA Administration Sodium Chloride 10 ml 04/27/25 14:04 Sodium Chloride Flush 0.9% 10 Ml Syringe IVP PRN PRN NEEDED PER PROVIDER ORDERS Sodium Chloride 10 ml 04/27/25 17:00 04/30/25 00:47 Sodium Chloride Flush 0.9% 10 Ml Syringe IVP 10 ml 0100,0900,1700 HERLINDA Administration Objective Vital Signs/Intake & Output Reviewed Vital Signs: Yes Vital Signs: Vital Signs x48h Temp Pulse Resp BP Pulse Ox 04/30/25 07:31 36.2 C L 69 16 146/72 H 98 04/30/25 00:50 36.7 C 70 16 132/68 H 94 Intake & Output: Intake & Output 04/27/25 04/28/25 04/29/25 04/30/25 23:59 23:59 23:59 23:59 Intake Total 1510 / 1510 1780 / 1780 2056 / 2056 100 / 100 Output Total 650 / 650 2250 / 2250 1800 / 1800 Balance 1510 / 1510 1130 / 1130 -193 / -193 -1700 / -1700 Weight (kg) 80 kg Objective Comments/Other: GEN: No acute distress. Lying in bed HEENT: NC/AT, normal appearance of external ears and nose. Hearing baseline. Cardiac: Regular rate and rhythm, no murmurs. Euvolemic on exam. Pulm: Lungs CTA bilaterally, no cough, no wheezes. Normal effort on room air Abdomen: Soft, nontender, nondistended. No rebound or guarding Extremities: Erythematous, edematous, and tender region along the anterior hernandez extending from the ankle to the knee. This area is receding slightly. There is some more skin tone blanching throughout. Less tender. Associated effusion in her knee, effusion is ballotable, tender, not particular erythematous. Neuro: Face symmetric, CN II through XII intact grossly. No focal neurologic deficits. Psych: Mood euthymic with congruent affect. Judgment intact. Good fund of knowledge. Lab Results 04/30/25 05:11 04/30/25 05:11 Other Labs: Lab Results x24hrs 04/30/25 04/29/25 04/29/25 Range/Units 05:11 20:37 16:41 WBC 6.6 (4.8-10.8) x10^3/uL RBC 4.51 (4.20-5.40) 10^6/uL Hgb 12.0 (12.0-16.0) g/dL Hct 40.1 (37.0-47.0) % MCV 88.9 (81.0-99.0) fL MCH 26.6 L (27.0-31.0) pg MCHC 29.9 L (32.0-36.0) g/dL RDW 13.7 (12.0-15.0) % Plt Count 419 (130-450) 10^3/uL MPV 8.8 (7.9-10.8) fL Neut # (Auto) 3.2 (1.5-6.6) 10^3/uL Lymph # (Auto) 2.6 (1.5-3.5) 10^3/uL [place] # (Auto) 0.5 (0.0-1.0) 10^3/uL Eos # (Auto) 0.2 (0.0-0.7) 10^3/uL Baso # (Auto) 0.0 (0.0-0.1) 10^3/uL Absolute Nucleated RBC 0.00 x10^3/uL Nucleated RBC % 0.0 /100WBC Sodium 139 (135-145) mmol/L Potassium 4.3 (3.5-4.5) mmol/L Chloride 101 (101-111) mmol/L Carbon Dioxide 31 (21-32) mmol/L Anion Gap 7.0 (6-13) BUN 20 (6-20) mg/dL Creatinine 1.4 H (0.6-1.3) mg/dL Estimated GFR (MDRD) 37 L (>89) Glucose 103 (74-104) mg/dL POC Whole Bld Glucose 170 160 (70-100) mg/dL Calcium 9.7 (8.5-10.3) mg/dL Total Bilirubin 0.4 (0.2-1.0) mg/dL AST 24 (10-42) IU/L ALT 25 (10-60) IU/L Alkaline Phosphatase 152 H (42-121) IU/L Total Protein 7.1 (6.4-8.9) g/dL Albumin 3.5 (3.2-5.5) g/dL Globulin 3.6 (2.1-4.2) g/dL Albumin/Globulin Ratio 1.0 (1.0-2.2) 04/29/25 04/29/25 Range/Units 11:26 07:47 WBC (4.8-10.8) x10^3/uL RBC (4.20-5.40) 10^6/uL Hgb (12.0-16.0) g/dL Hct (37.0-47.0) % MCV (81.0-99.0) fL MCH (27.0-31.0) pg MCHC (32.0-36.0) g/dL RDW (12.0-15.0) % Plt Count (130-450) 10^3/uL MPV (7.9-10.8) fL Neut # (Auto) (1.5-6.6) 10^3/uL Lymph # (Auto) (1.5-3.5) 10^3/uL [place] # (Auto) (0.0-1.0) 10^3/uL Eos # (Auto) (0.0-0.7) 10^3/uL Baso # (Auto) (0.0-0.1) 10^3/uL Absolute Nucleated RBC x10^3/uL Nucleated RBC % /100WBC Sodium (135-145) mmol/L Potassium (3.5-4.5) mmol/L Chloride (101-111) mmol/L Carbon Dioxide (21-32) mmol/L Anion Gap (6-13) BUN (6-20) mg/dL Creatinine (0.6-1.3) mg/dL Estimated GFR (MDRD) (>89) Glucose (74-104) mg/dL POC Whole Bld Glucose 178 158 (70-100) mg/dL Calcium (8.5-10.3) mg/dL Total Bilirubin (0.2-1.0) mg/dL AST (10-42) IU/L ALT (10-60) IU/L Alkaline Phosphatase (42-121) IU/L Total Protein (6.4-8.9) g/dL Albumin (3.2-5.5) g/dL Globulin (2.1-4.2) g/dL Albumin/Globulin Ratio (1.0-2.2) Sepsis Event Note (H) Evaluation Current Stage of Sepsis: Ruled out Assessment/Plan Problem List (1) Septic arthritis: Impression: Her knee is less tender today, but still has a ballotable effusion. 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 No crystals have been seen on fluid studies, but equally, no growth from fluid aspirate. - Consider intra-articular steroid if knee pain not improving. Qualifiers: Laterality: right Septic arthritis location: knee Septic arthritis organism: due to unspecified organism Qualified Code(s): M00.9 - Pyogenic arthritis, unspecified (2) Cellulitis: Impression: Continues to respond to treatment well. Remains with stable vital signs. No leukocytosis. No other systemic signs of illness. Blood cultures as below. Recall that she presented with 1 week of worsening right lower extremity warmth and redness. Was previously seen at this hospital 04/21 through 04/23. She has been taking Augmentin at home with little improvement. She had some fever on initial presentation on the 04/21, but since then has had no systemic signs of illness. Afebrile. No leukocytosis. Immunosuppressed in the setting of her liver transplant as below. On admission: CRP 13.5, ESR 107. CT with soft tissue findings. No abscesses or gas seen. No DVT. Joint was tapped in the ED and again by orthopedics. 2 fluid samples were sent to the lab. No crystals were seen on the first sample. There are elevated white blood cells in the joint. Neutrophilic predominance. No organisms seen on the second sample. There are GPC's seen on the first. Orthopedic surgery believes this is more likely to be a crystalline arthropathy associated joint effusion given the limited cellularity. Septic joints typically have greater than 50,000 WBC. I do question about cellularity in the setting of her immunosuppression - In brief review of the literature, it does not appear that immunosuppression significantly alter synovial fluid inflammatory response (Young et al 2018). More to the point, she had had antibiotics prior to this which may have lowered her inflammatory response (Iglesias et al 2020). - Continue to follow-up on synovial fluid cultures, NGTD - Discontinue vancomycin - Will start on Bactrim 1 DS tab twice daily to complete 10-day course o IDSA guidelines are 5-day treatment extended an additional 5 days if clinical improvement is not occurred by 5 days. - Continue immunosuppression as below - Trend CBC, CRP, ESR a.m. - Continue pain management with scheduled Tylenol 325, 4 times daily per patient's request, as needed narcotics available o Patient has not needed any narcotics for the last 24 hours - PT is evaluated, recommending discharge home with home health. HH ordered - Blood cx as below - Continue to manage blood sugars as below. - Discussed with orthopedic surgery 04/28, they remain unconvinced that this is a septic joint. Will continue antibiotics for cellulitis. Follow-up cultures Qualifiers: Site of cellulitis: unspecified site Qualified Code(s): L03.90 - Cellulitis, unspecified (3) Blood culture positive: Impression: Patient had blood cultures which were drawn on 04/28. These grew positive for GPC's, speciated as staph epi on 04/29. In prospective studies in [place], 17% of coag negative staph blood cultures represent true bacteremia. She continues to not demonstrate septic physiology. Afebrile. Normal vital signs. If she does have true gram-positive bacteremia, she will need to be transferred for FABRIZIO, and management of bloodstream infection under the supervision of her posttransplant team. - TTE pending read, no evident vegetation. - Repeat blood cultures, NGTD - ABX as above - If she remains clinically stable as of 05/01, she can discharge home with home health - If she clinically deteriorates on oral antibiotics, or blood cultures are persistently positive, she will need to transfer to a higher level of care. (4) History of liver transplant: (5) Immunosuppressed status: Impression: Stable. No signs of systemic illness. Liver enzymes normal. Patient reportedly received her liver transplant in 2006. She has had an uneventful course since her liver transplant. She has been on sirolimus 1 mg daily since 2008 approximately. No significant sequelae of her chronic immunosuppression. She follows regularly with the posttransplant team at the [facility]. 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 I am opting on admission not to discontinue her immunosuppression - Continue sirolimus 1 mg p.o. daily - If she clinically worsens with regard to her infection, she should be transferred to transplant center by guideline. - Monitor CMP a.m. (6) Diabetes mellitus: Impression: Blood sugars have stabilized and remained within normal limits on the following treatment. Patient with longstanding history of insulin-dependent diabetes. Her home regimen is 30 units SQ glargine twice daily with 1 to 15 units sliding scale lispro with meals. Her diabetes complicated by diabetic peripheral neuropathy. This is managed with gabapentin 800 mg p.o. twice daily. - Continue gabapentin 800 mg p.o. twice daily, monitor renal function - Glargine 10 units nightly - Monitor blood glucoses [id number] qACHS - Low dose sliding scale - Carb controlled diet - Likely recommend she discharge needed this dose and increases her glargine back towards her home dose as she gets back to her regular diet (7) Hypothyroid: Impression: History of acquired hypothyroidism. No ike signs of hyper or hypothyroidism. - Continue home dose levothyroxine 88 mcg daily (8) Hyperlipidemia: Impression: Patient with history of hypertriglyceridemia and mixed hyperlipidemia. She is on fenofibrate 54 mg nightly and pravastatin 40 mg nightly. I do not have access to her outpatient lipid profile, but reportedly this is controlled. - Continue IMAGING TECH fenofibrate 54 mg nightly - Continue pravastatin 40 mg nightly I spent a total of 42 minutes in the care of this patient today. This time was spent reviewing labs, vital signs, imaging, interviewing and examining the patient, and discussing plan of care with them and their other care providers. Continues to be acutely ill with risk to life or bodily function. Data review as above. Prescription drug management as above. [id number]
[2025-04-30] MEDS: SULFAMETH/TRIMETH DS 800/160 MG TABLET PO SCH (13:57)
--- NOTE | 2025-04-30 16:46 | PT Plan of Care ---
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 PMH includes liver transplant ~20 years ago, please see chart for complete medical hx. The pt was received resting comfortably supine in bed and presented today with decreased R LE strength, decreased activity tolerance, R LE pain, and impaired standing balance all of which limited her tolerance with functional mobility. At this time recommend continued skilled PT intervention while in the acute setting and DC home with home services for further rehab once pt medically stable as she is functioning below her baseline level of Ind. This plan was discussed with the pt and her , they were both in agreement with this. At the end of the session the pt was sitting up in a chair with call light in reach, chair alarm in place and on, and all needs met. RN, CROSSING TENDER, and all updated on pt's status and DC rec. PATIENT/FAMILY GOALS Patient/Family Goals: To have less pain and get stronger to be able to go home GOALS Improve supine to sit to:: Independent Improve sit to stand to:: Modified Independent Improve pivot transfer ability to:: Modified Independent Improve sit to supine to:: Independent Other transfer goal:: STS with FWW Improve gait ability to:: SBA Advance Assistive Device to:: Front Wheeled Walker Increase distance walked to (in feet):: 100 Other gait goal:: without rest breaks Improve Sitting Balance to:: Good PLAN Frequency: 1-2x/day Duration: Until goals are met DISCHARGE RECOMMENDATIONS Discharge Location: Previous Living Situation Support/Services Needed: Home Health P.T. Other Discharge Equipment: pt owns all recommended DME Transport Needs at Discharge: Personal vehicle
[2025-05-01 05:07] LABS: HCT - HEMATOCRIT 36.7 % (37.0-47.0); HGB - HEMOGLOBIN 11.6 g/dL (12.0-16.0); MEAN PLATELET VOLUME 8.5 fL (7.9-10.8); NRBC ABSOLUTE COUNT (AUTO) 0.00 x10^3/uL; NUCLEATED RED BLOOD CELLS AUTO 0.0 /100WBC; PLT - PLATELET COUNT 395 10^3/uL (130-450); RED CELL DISTRIBUTION WIDTH 13.6 % (12.0-15.0)
[2025-05-01 05:21] LABS: ALT ALANINE AMINOTRANSFERASE 23.0 IU/L (10-60); AST ASPARTATE AMINOTRANSFERASE 23.0 IU/L (10-42); BUN - BLOOD UREA NITROGEN 25.0 mg/dL (6-20); CARBON DIOXIDE - CO2 30.0 mmol/L (21-32); CREATININE 1.6 mg/dL (0.6-1.3); CRP - C-REACTIVE PROTEIN 7.9 mg/dL (<0.5); GFR - MDRD 32.0 (>89)
[2025-05-01] MEDS: DOXYCYCLINE 100 MG TABLET PO SCH (08:31)
--- NOTE | 2025-05-01 12:31 | Discharge Summary ---
"Discharge Summary Admit Date: 04/27/25 Discharge Date: 05/01/25 Discharging Provider: Shankar Pelayo Primary Care Provider: Domenico Guerrero Code Status: Attempt Resuscitation Discharge Facility Name: Home DIAGNOSES Discharge Diagnoses with Status of Each Condition: ## Joint effusion Joint was tapped in the ED and again by orthopedics. 2 fluid samples were sent to the lab. No crystals were seen on the first sample. There are elevated white blood cells in the joint. Neutrophilic predominance. No organisms seen on the second sample. There are GPC's seen on the first. Orthopedic surgery believes this is more likely to be a crystalline arthropathy associated joint effusion given the limited cellularity. Septic joints typically have greater than 50,000 WBC. Consideration made for intra-articular steroid, but knee pain was improving day of discharge. She was able to ambulate without issue. ## Cellulitis, improved Recall that she presented with 1 week of worsening right lower extremity warmth and redness. Was previously seen at this hospital 04/21 through 04/23. She has been taking Augmentin at home with little improvement. She had some fever on initial presentation on the 04/21, but since then has had no systemic signs of illness. Afebrile. No leukocytosis. Immunosuppressed in the setting of her liver transplant as below. On admission: CRP 13.5, ESR 107. CT with soft tissue findings. No abscesses or gas seen. No DVT. Patient improved on vancomycin monotherapy. Her pain is resolving intervally day by day. Given that she previously failed outpatient treatment on typical strep coverage, will discharge on broader coverage. Trialed her on Bactrim, but that precipitated hyperkalemia, likely mediated by her sirolimus. Doxycycline was agreed on between myself and patient. She has previously had some abdominal cramping with doxycycline, very agreed that she would try it with food. She tolerated this on day of discharge Per IDSA guidelines treatment extended additional 5 days without significant clinical improvement after the first 5 days, 10-day total - Complete 10-day total course of oral antibiotics with doxycycline, EOT 05/07 - Pain management scheduled Tylenol, patient not needing narcotics by day of discharge - PT evaluating, recommended discharge home with home health. Home health ordered ## Blood culture positive Patient had blood cultures which were drawn on 04/28. These grew positive for GPC's, speciated as staph epi on 04/29. In prospective studies in [place], 17% of coag negative staph blood cultures represent true bacteremia. She continues to not demonstrate septic physiology. Afebrile. Normal vital signs. - If she did demonstrate true gram-positive bacteremia, this would need to be managed at a transplant center - Blood cultures will continue be monitored for 5 days, NGTD - TTE this admission without any vegetation ## History of liver transplant ## Immunosuppressed status Patient reportedly received her liver transplant in 2006. She has had an uneventful course since her liver transplant. She has been on sirolimus 1 mg daily since 2008 approximately. No significant sequelae of her chronic immunosuppression. She follows regularly with the posttransplant team at the [facility]. 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 I am opting on admission not to discontinue her immunosuppression, this was continued throughout her hospitalization uneventfully. Liver enzymes stable throughout this hospitalization. ## Diabetes mellitus Course was complicated by episodes of hypoglycemia in the setting of poor appetite and continuing her home insulin regimen. Required massive cut back on her glargine down to 10 units nightly. Her BG remained stable. Blood sugars have stabilized and remained within normal limits on the following treatment. Patient with longstanding history of insulin-dependent diabetes. Her home regimen is 30 units SQ glargine twice daily with 1 to 15 units sliding scale lispro with meals. Her diabetes complicated by diabetic peripheral neuropathy. This is managed with gabapentin 800 mg p.o. twice daily. - Discussed with her about cutting back on her glargine dose as she regains her appetite - She stated good understanding of insulin titration. ## Hypothyroid History of acquired hypothyroidism. No ike signs of hyper or hypothyroidism. Continue home dose levothyroxine 88 mcg daily, ## Hyperlipidemia Patient with history of hypertriglyceridemia and mixed hyperlipidemia. She is on fenofibrate 54 mg nightly and pravastatin 40 mg nightly. She continued on these during this hospitalization uneventfully. HPI History of Present Illness: This is an extremely pleasant 70-year-old female with a past medical history notable for cirrhosis cirrhosis s/p liver transplantation 20 years ago, T2DM, hypothyroidism, hyperlipidemia who was recently discharged from this hospital with right lower extremity cellulitis. She has not improved basically since her cellulitis started on 04/20. She comes back in and is found to have a Sincere cellulitic joint effusion. This was tapped in the ED and does appear to be septic arthritis. She has no peripheral leukocytosis. 26,000 WBC within the joint. Gram stain showing GPC's. Orthopedics has been consulted. Her story regarding her cellulitis is that she went out to dinner for her birthday on 04/19. She felt febrile that evening, and was worried about transplant rejection. She was able to sleep, and the next day she noticed that she had some pain and redness in her right lower extremity. This worsened over the ensuing 24 hours to the point where she could not ambulate. She had her drive her to the ED. She was admitted on 04/21 for right lower extremity cellulitis. Blood cultures from that admission did not grow anything. She was treated with ceftriaxone and vancomycin which she says did not really improve her symptoms too much. She was discharged on Augmentin. She is continue to take Augmentin at home without much improvement. She is continue to struggle to ambulate throughout this. On 04/27, she noticed increased joint effusion and redness. She has had pain more localized in the knee joint now. This prompted her to return to care. She still does not have any systemic symptoms. Has not had a fever since her early illness. Denies chest pain, dyspnea, abdominal pain, or nausea or vomiting. With regard to her transplant history, it is thought that she developed hepatitis C after blood transfusions in the 70s when she had her son. She developed DIC after the delivery, and had multiple transfusions requiring community donations at the time. She went 30 years until the early without any symptoms of hepatitis C. She initially presented in the early with nausea and vomiting and was found to have esophageal varices prompting investigation which revealed a cirrhotic liver. Her hepatitis C was then diagnosed on serologies. She lived on the transplant list for several years before having fulminant liver failure prompting an emergency transplant in 2006. She has been on sirolimus since approximately 2008. She follows with the posttransplant team at the [facility]. Gets labs every 3 months. Periodic imaging. She has had a relatively uneventful medical history since her transplant. She has only been hospitalized 1 other time, ironically for septic arthritis in the same knee that she is presenting with today. Patient is recommended for admission given her immobility, likely septic arthritis. Her lack of leukocytosis may be explained by her immunosuppressed state. She does not have septic vital signs. [place], he will be at bedside later today. Her primary care doctor has previously discussed with her about recommendations for a DNR status and advance care planning. Her and the patient are both apprehensive about DNR status. She feels like she is relatively healthy and would like a trial of resuscitative efforts. She is communicated with her that if she has little hope for recovery, she would not want to live on machines for an extended period of time. She has 2 adult children, a biologic son and adopted daughter, they live in [facility]. They are aware she is in the hospital. CONSULTS | PROCEDURES Consultations: Orthopedics Procedures: Arthrocentesis x 2 Echocardiogram HOSPITAL COURSE Hospital Course: Ms. Zaragoza is a 70-year-old female with a past medical history notable for cirrhosis on immunosuppression. She was admitted for persistent cellulitis of her right lower extremity that was recalcitrant first line management. She completed a course of Augmentin without much improvement in her leg. She was unable to walk prior to this hospitalization. She was started on vancomycin monotherapy, and had interval improvement daily while she was here. Given failing first-line therapy, she was transition to MRSA coverage this hospitalization. She is discharged on doxycycline. Attempts to discharge on Bactrim were unsuccessful due to hyperkalemia, which she is at risk for given her sirolimus. She had an associated joint effusion. This is thought to be questionably a septic joint by orthopedics. They feel like the cellularity is not consistent with septic arthritis. 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 Cultures from her effusion aspirate have not grown anything. Her course was complicated by what I suspect is a blood culture contaminant. She had staph epi growing in her first set of blood cultures. Repeat blood cultures have been NGTD. She has not had septic physiology. She had an echo that did not reveal any vegetations. Repeat blood cultures will continue be monitored for total 5 days. She was seen and evaluated on day of discharge. She continues to feel well. She was able to ambulate to the bathroom which she has not been able to do for 2 weeks. She feels comfortable to go home. She worked with PT who recommended she have ongoing home health which was ordered. She continues to not have any other systemic signs of illness. She is discharged in stable condition to home with home health. Will complete 10 total days of antibiotics, EOT 05/07. ALLERGIES Allergies Allergy/AdvReac Type Severity Reaction Status Date / Time No Known Drug Allergies Allergy Verified 04/27/25 08:42 MEDICATIONS Ambulatory Orders Medication Instructions Recorded Confirmed lancets 21 gauge #30 ea 12/16/13 sirolimus 1 mg tablet (Rapamune) 1 mg PO DAILY 4 04/27/25 fenofibrate 54 mg tablet 54 mg PO QPM 04/22/25 gabapentin 800 mg tablet 800 mg PO BID 04/22/2504/27 insulin glargine 100 unit/mL (3 30 unit subcut BID 04/27/25 mL) subcutaneous pen (Lantus Solostar U-100 Insulin) insulin lispro 100 unit/mL 1 - 15 unit subcut TIDWM 04/27/25 subcutaneous solution (Humalog U-100 Insulin) levothyroxine 88 mcg tablet 88 mcg PO QDAC 04/22/25 (Synthroid) pravastatin 40 mg tablet 40 mg PO QPM 04/22/25 oxycodone 5 mg tablet 5 mg PO TID PRN pain #20 tab s 04/23/25 04/27/25 acetaminophen 325 mg tablet 325 mg PO QID #0 tabs 06/25 doxycycline hyclate 100 mg tablet 100 mg PO BID #13 ta bs 05/01/25 PHYSICAL EXAM AT DISCHARGE Vital Signs: Vital Signs x48h Temp Pulse Resp BP Pulse Ox 05/01/25 13:00 36.2 C L 65 16 121/55 L 97 LABS 05/01/25 04:20 05/01/25 04:20 DIAGNOSTIC IMAGING Diagnostic Imaging Results: Final report reviewed and Read independently Diagnostic Imaging Results Comments: LLE CT W Soft tissue swelling is seen, yet without findings of abscess or soft tissue gas. Negative for abscess or soft tissue gas. Generalized skin thickening and soft tissue swelling seen, which is most consistent with generalized cellulitis. ECHO from 05/01 Global left ventricular systolic function is normal. The visual left ventricular ejection fraction is estimated at 60 to 65%. The right ventricle is normal in size and function. No concerning cardiac valve disease is noted. SEPSIS Current Stage of Sepsis: Ruled out FOLLOW UP Follow Up: Follow-up with primary care in the next 1 to 2 weeks. She should have a BMP performed to monitor renal function and potassium. Potassium at discharge 5.2. TIME SPENT Time Spent in Discharge (Minutes): 40 Discharge Plan Discharge Patient Disposition: Home Health Service Condition: Stable Prescriptions: New acetaminophen 325 mg Tablet 325 mg PO QID Qty: 0 0RF doxycycline hyclate 100 mg Tablet 100 mg PO BID Qty: 13 0RF Rx Instructions: Start evening of 05/01 Continued sirolimus [Rapamune] 1 MG tablet 1 mg PO DAILY pravastatin 40 mg tablet 40 mg PO QPM levothyroxine [Synthroid] 88 mcg tablet 88 mcg PO QDAC insulin lispro [Humalog U-100 Insulin] 100 unit/mL solution 1 - 15 unit subcut TIDWM fenofibrate 54 mg tablet 54 mg PO QPM gabapentin 800 mg tablet 800 mg PO BID insulin glargine [Lantus Solostar U-100 Insulin] 100 UNIT/ML insulin pen 30 unit subcut BID oxycodone 5 mg tablet 5 mg PO TID PRN (Reason: pain) Qty: 20 0RF Discontinued amoxicillin-pot clavulanate 875-125 mg tablet 1 tab PO BID 5 Days Qty: 10 0RF No Action (DME) lancets 1 EACH misc 1 ea miscellaneous QID Qty: 30 0RF Activity Restrictions: No Restrictions Diet: Diabetic Health Concerns: You were admitted with cellulitis which is a bacterial skin infection that causes redness, swelling, warmth, and pain in the affected area. You have been diagnosed with cellulitis of your right lower leg. This infection is usually caused by bacteria that enter through breaks in the skin. Given that you had failed initial oral antibiotic therapy, you are being discharged on a more potent antibiotic with doxycycline. Please try and take this medicine with food. Complete the full course of antibiotics even if you start feeling better. Stopping early can: Make the infection come back and allow bacteria to become resistant to antibiotics Avoid excessive sun exposure while taking this medication. Doxycycline can make your skin more sensitive to sunlight and cause severe sunburn. Use sunscreen (SPF 30 or higher) and wear protective clothing when outdoors. If you develop a skin rash or severe sunburn, contact your doctor. Monitoring Your Infection Check your leg within 24-48 hours to see if the infection is improving. You should notice less pain, redness, swelling, and warmth When to Call Your Doctor * The redness, swelling, or pain gets worse after 24-48 hours of treatment * The red area spreads beyond the pen ko * You develop a fever (temperature above 100.4F or 38C) * You see red streaks spreading from the infected area * The area develops blisters, pus, or drainage * You develop severe diarrhea, especially if it contains blood When to Go to the Emergency Room * High fever with chills or shaking * Confusion or difficulty thinking clearly * Severe pain that is not controlled with [id number] pain medication * Black or purple discoloration of the skin * Numbness in the affected leg Home Care Instructions Elevate your right leg as much as possible, especially when sitting or lying down. This helps reduce swelling and speeds healing. Prop your leg up on pillows so it is above the level of your heart. Rest and avoid prolonged standing or walking until the infection improves. Keep the area clean and dry. Gently wash with soap and water daily. Pain relief: You may take [id number]-[id number] pain medication like ibuprofen or acetaminophen as directed on the package. Ibuprofen may also help reduce inflammation. Preventing Future Infections Check between your toes daily for cracks, peeling, or white, moist skin. These areas can harbor bacteria that cause cellulitis. If you notice these problems: - Keep the area clean and dry - Apply antifungal powder or cream if recommended by your doctor - Wear clean, dry socks daily Other prevention tips: - Moisturize dry, cracked skin on your legs and feet daily - Treat any cuts, scrapes, or insect bites promptly - clean with soap and water and apply antibiotic ointment - Wear shoes to protect your feet from injury - If you have swelling in your legs (edema), work with your doctor to manage it Possible Side Effects of Doxycycline Common side effects include: - Nausea or upset stomach - Diarrhea (usually mild) - Vaginal yeast infections in women Call your doctor immediately if you develop: - Severe diarrhea or diarrhea with blood - Severe stomach cramps - Svere skin rash or blistering Print Language: Qatari Patient Instructions: Doxycycline, Cellulitis Dc Stand Alone Forms: PCP List Follow-up Care: DOMENICO GUERRERO MD [Primary Care Provider, Family Practice] Vitals documented within 30 minutes of discharge?: Yes (See last charted VSs)"
--- NOTE | 2025-05-01 13:03 | ECHO Report ---
Version: 1 Study ID: [id number] [id number] Adult Echocardiogram Report Name: MERRY COLEMAN Study Date: 04/29/2025, 3: 31 PM BP: 124 / mmHg Patient Location: [id number] HR: 78 bpm : 1955 (MM/DD/YYYY) Gender: Female Height: 66.5 in Age: 70 Years Weight: 173 lb BSA: 1.89 m² Reason For Study: GPC bacteremia History: Liver transplant. No previous study. Interpretation Summary Global left ventricular systolic function is normal. The visual left ventricular ejection fraction is estimated at 60 to 65%. The right ventricle is normal in size and function. No concerning cardiac valve disease is noted. Left Ventricle: The left ventricle is grossly normal size. There is normal left ventricular wall thickness. No thrombus seen in the left ventricle. The visual left ventricular ejection fraction is estimated at 60 to 65%. Global left ventricular systolic function is normal. The overall diastolic pattern is one of normal left ventricular relaxation and filling pressures. Right Ventricle: The right ventricle is normal in size and function. TAPSE is consistent with normal right ventricular function. The tricuspid annular plane systolic excursion (TAPSE) measurement is 2.1 cm. Aortic Valve: The aortic valve is trileaflet. The aortic valve is mildly thickened. Cannot exclude aortic valve vegetation. No hemodynamically significant valvular aortic stenosis. No aortic regurgitation is present. Mitral Valve: The mitral valve is visually normal in structure and function. No evidence of mitral stenosis is seen. There is mild mitral regurgitation. Tricuspid Valve: The tricuspid valve is normal in structure and function. There is no tricuspid stenosis. Mild tricuspid regurgitation present. Pulmonic Valve: The pulmonic valve is normal in structure and function. There is no pulmonic valvular stenosis. Trace pulmonic valvular regurgitation is present. Left Atrium: The left atrial size is normal. Right Atrium: Right atrial size is normal. The inferior vena cava appears normal. Atrial Septum: The interatrial septum appears normal, without evidence of shunt by 2D imaging and color Doppler. Aorta: The ascending aorta is normal in size. The transverse arch is normal in size. The sinuses of Valsalva are normal in size. Pulmonary Artery: The pulmonary artery is normal size. The pulmonary artery systolic pressure is normal. Inferior vena cava dynamics indicate normal right atrial pressures. The right ventricular systolic pressure is 27mmHg. Pericardium/Pleural Space: There is no pericardial effusion. Left Ventricle IVSd: 0.93 cm LVIDd: 4.6 cm LVPWd: 0.82 cm LVIDs: 3.2 cm EDV(MOD-sp4): 55.6 ml LVLd ap4: 6.8 cm ESV(MOD-sp4): 27.8 ml ESV(sp4-el): 65.4 ml LVLs ap4: 5.9 cm Right Ventricle TAPSE: 2.14 cm RV S Dick: 14.1 cm/sec Atria LA dimension: 5.3 cm LAV(MOD-sp4): 53.0 ml LAV(MOD-sp2): 51.1 ml Diastolic Function MV dec time: 0.14 sec MV E max dick: 86.9 cm/sec MV A max dick: 53.3 cm/sec Aortic Valve LVOT diam: 1.77 cm LV V1 mean P.2 mmHg LV V1 mean: 84.0 cm/sec LV V1 VTI: 24.3 cm Ao V2 VTI: 28.3 cm Ao mean P.8 mmHg Ao V2 mean: 92.3 cm/sec LV V1 max: 115.1 cm/sec LV V1 max P.3 mmHg Ao max P.7 mmHg Ao V2 max: 128.9 cm/sec Mitral Valve MV max P.0 mmHg MV V2 max: 85.9 cm/sec MV mean P.15 mmHg MV V2 mean: 50.1 cm/sec MV V2 VTI: 18.9 cm Tricuspid Valve TR max P.1 mmHg TR max dick: 245.3 cm/sec TV max P.1 mmHg Aorta Ao root diam: 3.1 cm MMode/2D Measurements & Calculations Ao root diam: 3.1 cm BMI: 27.5 kilograms/m² BSA([facility]): 1.94 m² EDV(MOD-sp4): 55.6 ml ESV(MOD-sp4): 27.8 ml ESV(sp4-el): 65.4 ml IVSd: 0.93 cm LA A4C-A/L: 20.8 cm² LA dimension: 5.3 cm LA ESV-A/L: 65.1 ml LA Vol Index: 31.6 ml/m² LAV(MOD-sp2): 51.1 ml LAV(MOD-sp4): 53.0 ml LVIDd: 4.6 cm LVIDs: 3.2 cm LVLd ap4: 6.8 cm LVLs ap4: 5.9 cm LVOT diam: 1.77 cm LVPWd: 0.82 cm RA A4Cs: 13.8 cm² TAPSE: 2.14 cm Doppler Measurements & Calculations Ao max P.7 mmHg Ao mean P.8 mmHg Ao V2 max: 128.9 cm/sec Ao V2 mean: 92.3 cm/sec Ao V2 VTI: 28.3 cm Lat E/e': 7.4 LV V1 max: 115.1 cm/sec LV V1 max P.3 mmHg LV V1 mean: 84.0 cm/sec LV V1 mean P.2 mmHg LV V1 VTI: 24.3 cm Med E/e': 14.9 MV A max dick: 53.3 cm/sec MV dec time: 0.14 sec MV DVI-pr: 1.63 MV E max dick: 86.9 cm/sec MV max P.0 mmHg MV mean P.15 mmHg MV V2 max: 85.9 cm/sec MV V2 mean: 50.1 cm/sec MV V2 VTI: 18.9 cm PA max P.1 mmHg PA V2 max: 88.1 cm/sec RV S Dick: 14.1 cm/sec TR max P.1 mmHg TR max dick: 245.3 cm/sec TV max P.1 mmHg Other Measurements & Calculations Ao root area: 7.6 cm² GONSALO(I,D): 2.11 cm² GONSALO(V,D): 2.19 cm² EDV(Teich): 99.0 ml EF(MOD-sp4): 50.0 % EF(sp-el): 50.0 % EF(Teich): 60.1 % ESV(Teich): 39.5 ml FS: 32.0 % LVOT area: 2.46 cm² MV E/A: 1.63 MVA(VTI): 3.2 cm² SV(LVOT): 59.7 ml SV(MOD-sp4): 27.8 ml MD Amanda Ye 05/01/2025, 1: 02 PM Ordering Physician: Shankar Pelayo Referring Physician: Louie Francois Performed By: RADHA
[2025-05-01 13:21] VITALS: BP 121/55; TEMP 97.2; O2SAT 97
--- OUTSIDE RECORDS SUMMARY | 2025-05-06 06:16 | EXTERNAL MEDICAL SUMMARY RPT | Clinical Summary ---
Author Organization [facility] [place] Address [address] [place] [address] Care Team Providers Care Lift Electrician Name Role Phone Domenico Guerrero MD Primary Care Provider [phone] Allergies No known active allergies Medications Levothyroxine Sodium 125 MCG Oral Tab Take 125 mcg by mouth daily on an empty stomach. Active Gabapentin 800 MG Oral Tab Take 800 mg by mouth 2 times a day. Do not crush. Active Fenofibrate 54 MG Oral Tab Take 54 mg by mouth daily. Active Pravastatin Sodium 40 MG Oral Tab Take 1 tablet by mouth daily. Active Insulin Glargine (LANTUS) 100 UNIT/ML Subcutaneous Solution Inject 30 units under the skin 2 times a day. Active Insulin Aspart (NOVOLOG SC) Inject 15 units under the skin 3 times a day with meals. Active Calcium Carbonate-Vitamin D (CALCIUM 500 + D) 500-125 MG-UNIT Oral Tab Take 1 tablet by mouth 3 times a day. Active Other Meds (See Sig/Instructions) Centrum Silver - one a day Active acetaminophen 325 MG tablet every 6 hours as needed. 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 History of hepatitis C 06/19/2017 Encounters Date Type Department Care Team Description 03/02/2025 1:45 PM PDT Office Visit [facility] Post Liver [address] [facility], [address] [place] [address] Neelima Valerio PA-C Dx: Liver replaced by transplant (HCC) (Primary Dx) Discharge Disposition: HOME/SELF CARE 03/02/2025 11:15 AM PDT - 03/02/2025 11:59 PM PDT Hospital Encounter [facility] Ultrasound [address] [facility] [place] [address] Dx: Aftercare following organ transplant Discharge Disposition: HOME/SELF CARE 03/02/2025 11:03 AM PDT - 03/02/2025 11:14 AM PDT Hospital Encounter [facility] Radiology [address] [facility] [place] [address] Dx: Aftercare following organ transplant Discharge Disposition: HOME/SELF CARE 03/02/2025 Orders Only [facility] Post Liver [address] [facility], [address] [place] [address] Fanta Jeter, Coordinator Aftercare following organ transplant; Encounter for long-term (current) use of medications; Liver replaced by transplant (HCC) 02/24/2025 Orders Only [facility] Post Liver [address] [facility], [address] [place] [address] Fanta Jeter, Coordinator Liver replaced by transplant (HCC) (Primary Dx); Aftercare following organ transplant; Encounter for long-term (current) use of medications 02/24/2025 Orders Only [facility] Post Liver [address] [facility], [address] [place] [address] Fanta Jeter, Coordinator Liver replaced by transplant (HCC) (Primary Dx); Aftercare following organ transplant; Encounter for long-term (current) use of medications from Last 3 Months Immunizations Immunization Administration Dates Next Due COVID-19 Pfizer mRNA bivalen t 12 yrs and older 05/06/2022 COVID-19 Pfizer mRNA seasona l 12 yrs and older (Comirnaty) 05/13/2023 Hepatitis B adult 01/12/2018,09/18/2017,07/01/19 18 Influenza quadrivalent high- dose (Fluzone High-Dose) 06/29/2020 Influenza quadrivalent recom binant (Flublok) 05/13/2021 Influenza, unspecified 04/28/2023,03/26/2018 Pneumococcal polysaccharide PPSV23 (Pneumovax 23) 01/22/2016 Tdap 10/13/2012 Social History Tobacco Use Types Packs/Day Years Used Date Smoking Tobacco: Never Smokeless Tobacco: Never Alcohol Use Standard Drinks/Week Comments No 0 (1 standard drink = 0.6 oz pur e alcohol) Comments Unknown Sex and Gender Information Value Date Recorded Sex Assigned at Female 07/06/2022 11:32 AM PST Legal Sex Female 10:08 AM PDT Gender Identity Female 07/06/2022 11:32 AM PST Sexual Orientation Straight 07/06/2022 11 :32 AM PST Last Filed Vital Signs Vital Sign Reading Time Taken Comments Blood Pressure 140/81 03/02/2025 1:25 PM PDT post 5 mins Pulse 79 03/02/2025 1:25 PM PDT Temperature 36.6 C (97.9 F) 03/02/2025 1:25 PM PDT Respiratory Rate 20 08/23/2021 3:05 PM PDT Oxygen Saturation 95% 03/02/2025 1:2 5 PM PDT ra Inhaled Oxygen Concentration - - Weight 82.2 kg (181 lb 3.5 oz) 03/02/20 1:25 PM PDT Height 168.9 cm (5' 6.5") 03/02/2025 1: 25 PM PDT Body Mass Index 28.81 03/02/2025 1:25 PM PDT Plan of Treatment Health Maintenance Due Date Last Done Comments Depression Screening (PHQ-2) 1965 Medicare Annual Wellness Visit 1971 Zoster Vaccine (1 of 2) 1972 CT Colonography 1998 Colonoscopy 1998 FIT-DNA 1998 Sigmoidoscopy 1998 RSV Vaccine (1 - Risk 60-74 years 1-dose series) 2013 Colorectal Cancer Screening 09/16/2018 FOBT/FIT 09/16/2018 09/16/2017 DTaP, Tdap and Td Vaccines (2 - Td or Tdap) 10/13/2022 10/13/2012 COVID-19 Vaccine ( - season) 2025 05/13/2023, 05/06/2022, 08/03/2021, Additional history exists Influenza Vaccine (#1) 2025 3, 05/06/2022, 05/13/2021, Additional history exists Breast Cancer Screening 07/14/2026 07/14/19, 07/14/2024, 05/01/2023, Additional history exists Lipid Disorders Screening 03/02/20302024, 11/24/2024, 06/29/2024, Additional history exists Hepatitis B Vaccine Completed 01/12/2018, 09/18/2017, 07/01/2017 Osteoporosis Screening Completed 08/03/2020, 2020 Pneumococcal Vaccine: 50+ Years Completed 05/13/2021, 04/25/2019, 03/24/2017, Additional history exists HPV Vaccine Aged Out No longer eligi ble based on patient's age to complete this topic Hepatitis A Vaccine Aged Out No longe r eligible based on patient's age to complete this topic Meningococcal B Vaccine Aged Out No l onger eligible based on patient's age to complete this topic Procedures Procedure Name Priority Date/Time Associated Diagnosis Comments PREMANAGE Routine 05/01/2025 3:26 PM PST PREMANAGE Routine 04/27/2025 2:32 PM PST PREMANAGE Routine 04/23/2025 6:16 PM PST PREMANAGE Routine 04/21/2025 11:42 PM PST US LIMIT LIVER TX W DOPPLER Routine 03/02/2025 12:03 PM PDT Aftercare following organ transplant Encounter for long-term (current) use of medications Liver replaced by transplant (HCC) XR CHEST 2 VW Routine 03/02/2025 11:31 AM PDT Aftercare following organ transplant Encounter for long-term (current) use of medications Liver replaced by transplant (HCC) HEMOGLOBIN A1C, HPLC Routine 03/02/2025 8:24 AM PDT Aftercare following organ transplant Encounter for long-term (current) use of medications Liver replaced by transplant (HCC) LIPID PANEL Routine 03/02/2025 8:24 AM PDT Aftercare following organ transplant Encounter for long-term (current) use of medications Liver replaced by transplant (HCC) LIVER TRX, OP PANEL W/ DIFF Routine 03/02/2025 8:24 AM PDT Aftercare following organ transplant Encounter for long-term (current) use of medications Liver replaced by transplant (HCC) SIROLIMUS BY LCMSMS Routine 03/02/2025 8 :24 AM PDT Aftercare following organ transplant Encounter for long-term (current) use of medications Liver replaced by transplant (HCC) PROTEIN/CREATININE RATIO, RANDOM URINE Routine 03/02/2025 8:17 AM PDT Aftercare following organ transplant Encounter for long-term (current) use of medications Liver replaced by transplant (HCC) from Last 3 Months Results * PREMANAGE (05/01/2025 3:26 PM PST) Only the most recent of4 resultswithin the time period is included. 05/01/2025 3:26 PM PST Narrative [facility] - 05/01/2025 3:26 PM PST Patient has visited an external emergency department or has been hospitalized outside of Medicine --MOST RECENT VISIT-- IP Admit:04/27/25 12:32 IP Discharge:05/01/25 13:15 Location:[facility] Attending Provider:Polly Encounter Type:Inpatient Major Class:Inpatient Chief Complaint:RLL SWELLING Diagnosis: Hyperlipidemia, unspecified Hypothyroidism, unspecified Bacteremia Cellulitis, unspecified Type 2 diabetes mellitus without complications Liver transplant status Immunodeficiency, unspecified Pyogenic arthritis, unspecified Bacteremia Hyperlipidemia, unspecified Immunodeficiency, unspecified Type 2 diabetes mellitus without complications Liver transplant status Hypothyroidism, unspecified Cellulitis, unspecified Pyogenic arthritis, unspecified ED/UCC VISIT TRACKING (3 MO.) Visit Date Location City Type Dx/Complaint -------- ------- ---- 04/27/2025 08:30 [facility] [place] RLL SWELLING [facility] LE[facility] PX/REDNESS, N/V/D INPATIENT VISIT TRACKING (1 MO.) Visit Date Location [facility] Type Dx/Complaint -------- ------- ---- [facility] [place] [facility] -Bacteremia -Bacteremia -Cellulitis, unspecified -Cellulitis, unspecified -Hyperlipidemia, unspecified -Hyperlipidemia, unspecified -Hypothyroidism, unspecified -Hypothyroidism, unspecified -Immunodeficiency, unspecified -Immunodeficiency, unspecified -Liver transplant status -Liver transplant status -Pyogenic arthritis, unspecified -Pyogenic arthritis, unspecified -Type 2 diabetes mellitus without complications -Type 2 diabetes mellitus without complications 04/21/2025 22:09 [facility] [place] Inpatient -Cellulitis of right lower limb -Cellulitis, unspecified -Cellulitis, unspecified -Diarrhea, unspecified -Liver transplant status -Liver transplant status -Localized swelling, mass and lump, right lower limb -Nausea with vomiting, unspecified -Sepsis, unspecified organism -Sepsis, unspecified organism -Type 2 diabetes mellitus without complications -Type 2 diabetes mellitus without complications ED VISIT COUNT (12 MO.) Visits Location ------ --------- 2 [facility] 2 Total Note: Visits indicate total known visits. --CARE GUIDELINES-- (Below are the most recent care guidelines entered by a Medicine care provider in [facility]. If Medicine guidelines do not exist in [facility], the most recent care guideline entered by an external hospital care provider is displayed.) [facility] has no Care Guidelines for this patient. Security Events No recent Security Events currently on file --CARE PROVIDERS-- CARE PROVIDERS Name Phone Type Service Dates ---- ----- ---- DOMENICO GUERRERO [phone] Family Medicine Unknown - Current Procedure Note EXTERNAL ATTENDING PHYSICIAN - 05/01/2025 Patient has visited an external emergency department or has beenhospitalized outside of [facility] --MOST RECENT VISIT-- IP Admit:04/27/25 12:32 IP Discharge:05/01/25 13:15 Location:[facility] Attending Provider:Polly Encounter Type:Inpatient Major Class:Inpatient Chief Complaint:RLL SWELLING Diagnosis: Hyperlipidemia, unspecified Hypothyroidism, unspecified Bacteremia Cellulitis, unspecified Type 2 diabetes mellitus without complications Liver transplant status Immunodeficiency, unspecified Pyogenic arthritis, unspecified Bacteremia Hyperlipidemia, unspecified Immunodeficiency, unspecified Type 2 diabetes mellitus without complications Liver transplant status Hypothyroidism, unspecified Cellulitis, unspecified Pyogenic arthritis, unspecified ED/UCC VISIT TRACKING (3 MO.) Visit Date Location [facility] TypeDx/Complaint -------- ------- 04/27/2025 08:30 [facility] [place] RLL SWELLING 04/21/2025 16:12 [facility] [place] RT LEG PX/REDNESS, N/V/D INPATIENT VISIT TRACKING (1 MO.) Visit Date Location [facility] TypeDx/Complaint -------- ------- 04/27/2025 12:32 [facility] [place] -Bacteremia -Bacteremia -Cellulitis, unspecified -Cellulitis, unspecified -Hyperlipidemia, unspecified -Hyperlipidemia, unspecified -Hypothyroidism, unspecified -Hypothyroidism, unspecified -Immunodeficiency, unspecified -Immunodeficiency, unspecified -Liver transplant status -Liver transplant status -Pyogenic arthritis, unspecified -Pyogenic arthritis, unspecified -Type 2 diabetes mellitus without complications -Type 2 diabetes mellitus without complications 04/21/2025 22:09 [facility] [place]Cellulitis of right lower limb -Cellulitis, unspecified -Cellulitis, unspecified -Diarrhea, unspecified -Liver transplant status -Liver transplant status -Localized swelling, mass and lump, right lower limb -Nausea with vomiting, unspecified -Sepsis, unspecified organism -Sepsis, unspecified organism -Type 2 diabetes mellitus without complications -Type 2 diabetes mellitus without complications ED VISIT COUNT (12 MO.) Visits Location ------ --------- 2 [employer] 2 Total Note: Visits indicate total known visits. --CARE GUIDELINES-- (Below are the most recent care guidelines entered by a Medicine careprovider in [facility]. If Medicine guidelines do not exist in [facility], the mostrecent care guideline entered by an external hospital care provider isdisplayed.) [facility] has no Care Guidelines for this patient. Security Events No recent Security Events currently on file --CARE PROVIDERS-- CARE PROVIDERS Name Phone Type Service Dates ---- ----- ---- DOMENICO GUERRERO [phone] Family Medicine Unknown - Current us External Attending Physician JUDI Briggs al Result [facility] * US Limit Liver Tx W Doppler (03/02/2025 12:03 PM PDT) Anatomical Region Laterality Modality Liver N/A Ultrasound 03/02/2025 11:3 7 AM PDT Impressions 03/02/2025 12:10 PM PDT ========= Coarse liver echotexture with no focal lesion. Mildly raised RIs, but otherwise normal doppler interrogation. Attention at follow up imaging. Anya Mchugh Attending Radha Barron Level Vial Inspector I have personally reviewed the images and agree with the report (or as edited). Narrative 03/02/2025 12:10 PM PDT Indication ======== Post liver transplant patient needing annual order History ====== General History Height 168 cm Height (ft) 5 ft Height (in) 6 in Other: DOT 05/26/04 Method ====== Abdominal ultrasound with image documentation. Color and Spectral Doppler was performed to evaluate arterial and venous in- and outflow. View: Satisfactory Physical Exam Data Height 168 cm, 5 ft 6 in. Weight 88 kg, 195 lb. BMI 31.51 kg/m . BSA 1.98 m . Transplant Details ========= Date of transplantation: 05/26/2004. 10/02/23. Liver ==== Common hepatic duct 3.9 mm. Common bile duct 6.9 mm Echogenic coarse parenchyma, normal intra and extra hepatic ducts Collections ========= No collections seen. Bile Ducts ======== Common hepatic duct 3.9 mm. Common bile duct 6.9 mm Normal intra- and extrahepatic bile ducts Pancreas ======== Not well seen Spleen ====== Length 11.9 cm. Width 7.8 cm. Height 3.9 cm. Volume 188.9 cm Normal size Right Kidney Not evaluated Inferior Vena Cava Normal. Peritoneum / Ascites No evidence of free fluid. Doppler Assessment Arterial Doppler PHA PSV 75 cm/s PHA EDV 15 cm/s PHA RI 0.80 PHA prev RI 0.84 PHA details: Normal brisk upstroke Rt Hepatic A PSV 27 cm/s Rt Hepatic A EDV 6 cm/s Rt Hepatic A RI 0.79 Rt Hepatic A prev RI 0.69 Rt Hepatic A details: Normal brisk upstroke Lt Hepatic A PSV 45 cm/s Lt Hepatic A EDV 9 cm/s Lt Hepatic A RI 0.81 Lt Hepatic A prev RI 0.80 Lt Hepatic A details: Normal brisk upstroke Venous Doppler [place] hepatis PV 35 cm/s [place] hepatis prev. PV 28 cm/s [place] hepatis details: Normal hepatopetal flow Rt portal V PV 20 cm/s Rt portal V prev. PV 30 cm/s Rt portal V details: Normal hepatopetal flow Lt portal vein PV 12 cm/s Lt portal vein prev. PV 14 cm/s Lt portal vein details: Normal hepatopetal flow Middle hepatic V details: Normal phasic flow Rt hepatic V details: Normal phasic flow Lt hepatic V details: Normal phasic flow Inferior vena cava PV 32 cm/s Inferior vena cava prev. PV 18 cm/s Inferior vena cava details: phasic flow Procedure Note Anya Mchugh, PRASHANT - 03/02/2025 Indication ======== Post liver transplant patient needing annual order History ====== General History [id number] cm Height (ft)5 ft Height (in)6 in Other:DOT 05/26/04 Method ====== Abdominal ultrasound with image documentation. Color and Spectral Dopplerwas performed to evaluate arterial and venous in- and outflow. View:Satisfactory Physical Exam Data Height 168 cm, 5 ft 6 in. Weight 88 kg, 195 lb. BMI 31.51 kg/m . BSA 1.98m . Transplant Details ========= Date of transplantation: 05/26/2004. 10/02/23. Liver ==== Common hepatic duct 3.9 mm. Common bile duct 6.9 mm Echogenic coarse parenchyma, normal intra and extra hepatic ducts Collections ========= No collections seen. Bile Ducts ======== Common hepatic duct 3.9 mm. Common bile duct 6.9 mm Normal intra- and extrahepatic bile ducts Pancreas ======== Not well seen Spleen ====== Length 11.9 cm. Width 7.8 cm. Height 3.9 cm. Volume 188.9 cm Normal size Right Kidney Not evaluated Inferior Vena Cava Normal. Peritoneum / Ascites No evidence of free fluid. Doppler Assessment Arterial Doppler PHA PSV75 cm/s PHA EDV15 cm/s PHA RI0.80 PHA prev RI0.84 PHA details:Normal brisk upstroke Rt Hepatic A PSV27 cm/s Rt Hepatic A EDV6 cm/s Rt Hepatic A RI0.79 Rt Hepatic A prev RI0.69 Rt Hepatic A details:Normal brisk upstroke Lt Hepatic A PSV45 cm/s Lt Hepatic A EDV9 cm/s Lt Hepatic A RI0.81 Lt Hepatic A prev RI0.80 Lt Hepatic A details:Normal brisk upstroke Venous Doppler [place] hepatis PV35 cm/s [place] hepatis prev. PV28 cm/s [place] hepatis details:Normal hepatopetal flow Rt portal V PV20 cm/s Rt portal V prev. PV30 cm/s Rt portal V details:Normal hepatopetal flow Lt portal vein PV12 cm/s Lt portal vein prev. PV14 cm/s Lt portal vein details:Normal hepatopetal flow Middle hepatic V details:Normal phasic flow Rt hepatic V details:Normal phasic flow Lt hepatic V details:Normal phasic flow Inferior vena cava PV32 cm/s Inferior vena cava prev. PV18 cm/s Inferior vena cava details:phasic flow IMPRESSION ========= Coarse liver echotexture with no focal lesion. Mildly raised RIs, butotherwise normal doppler interrogation. Attention at follow up imaging. Anya Mchugh Attending Radha Barron Level Vial Inspector I have personally reviewed the images and agree with the report (or asedited). us Gwen Matthew MD IMG US PROCEDURES Final R esult * XR Chest 2 View (03/02/2025 11:31 AM PDT) Anatomical Region Laterality Modality Chest N/A Digital Radiogra phy 03/02/2025 11:3 9 AM PDT Impressions 03/02/2025 11:39 AM PDT Lungs: Similar eventration of the hemidiaphragms. Clear lungs. Pleura: No effusion. No pneumothorax. Heart and mediastinum: Unremarkable. Bones: No acute or suspicious abnormality. Narrative 03/02/2025 11:39 AM PDT EXAMINATION: XR CHEST 2 VW CLINICAL INDICATION: post liver transplant patient needing annual order COMPARISON: 10/02/2023 FINDINGS AND Procedure Note Michaela Heaton MD - 03/02/2025 EXAMINATION: XR CHEST 2 VW CLINICAL INDICATION: post liver transplant patient needing annual order COMPARISON: 10/02/2023 FINDINGS AND IMPRESSION Lungs: Similar eventration of the hemidiaphragms. Clear lungs. Pleura: No effusion. No pneumothorax. Heart and mediastinum: Unremarkable. Bones: No acute or suspicious abnormality. Gwen Matthew MD IMG X RAY Final Res ult * Sirolimus Level (03/02/2025 8:24 AM PDT) Sirolimus 4.1 ng/mL 03/02/2025 1:45 PM PDT [facility] Dept of Lab Med Sirolimus Information Whole blood Sirolimus was measured by LCMSMS. 03/02/2025 1:45 PM PDT [facility] Dept of Lab Med Comment: Whole blood trough sirolimus concentrations of 5-15 ng/mL are effective in reducing the incidence of acute rejection in renal transplant patients when sirolimus is used as part of a combined immunosuppressive regimen. This test was developed and its performance characteristics determined by the [facility] Department of Laboratory Medicine and Pathology. It has not been cleared or approved by the US Food and Drug Administration. This laboratory is certified under the Clinical Laboratory Improvement Amendments (CLIA) as qualified to perform high complexity clinical laboratory testing. This test is used for clinical purposes. It should not be regarded as investigational or for research. Blood 03/02/2025 8:24 AM PDT us Chandu Salazar MD LAB BLOOD ORDERABLES Final Resul t [facility] MED [address] [facility] [id number] [place] [id number] [facility] Dept of Lab Med [address] [facility] [address] [place] [address] * (ABNORMAL) Liver Trx Panel, Outpatient w/ Diff (03/02/2025 8:24 AM PDT) Sodium 141 135 - 145 meq/L 03/02/2025 10:13 AM PDT [facility] Dept of Lab Med Potassium 4.1 3.6 - 5.2 meq/L 03/02/2025 10:13 AM PDT [facility] Dept of Lab Med Chloride 105 98 - 108 meq/L 03/02/2025 10:13 AM PDT [facility] Dept of Lab Med Carbon Dioxide, Total 26 22 - 32 meq/L 03/02/2025 10:13 AM PDT [facility] Dept of Lab Med Anion Gap 10 4 - 12 03/02/2025 10:13 AM PDT [facility] Dept of Lab Med Glucose 72 62 - 125 mg/dL 03/02/2025 10:13 AM PDT [facility] Dept of Lab Med Urea Nitrogen 23(H) 8 - 21 mg/dL 03/02/2025 10:13 AM PDT [facility] Dept of Lab Med Creatinine 1.17(H) 0.38 - 1.02 mg/dL 03/02/2025 10:13 AM PDT [facility] Dept of Lab Med Calcium 9.6 8.9 - 10.2 mg/dL 03/02/2025 10:13 AM PDT [facility] Dept of Lab Med eGFR by CKD-EPI 2020 50(L) >59 mL/min/1 .73_m2 03/02/2025 10:13 AM PDT [facility] Dept of Lab Med WBC 11.51(H) 4.3 - 10.0 10*3/uL 03/02/2025 9:12 AM PDT [facility] Dept of Lab Med RBC 4.89 3.80 - 5.00 10*6/uL 03/02/2025 9:12 AM PDT [facility] of Lab Med Hemoglobin 13.2 11.5 - 15.5 g/dL 03/02/2025 9:12 AM PDT [facility] Dept of Lab Med Hematocrit 42 36.0 - 45.0 % 03/02/2025 9:12 AM PDT [facility] Dept of Lab Med MCV 86 81 - 98 fL 03/02/2025 9:12 AM PDT [facility] of Lab Med MCH 27.0(L) 27.3 - 33.6 pg 03/02/2025 9:12 AM PDT [facility] of Lab Med MCHC 31.6(L) 32.2 - 36.5 g/dL 03/02/2025 9:12 AM PDT [facility] Dept of Lab Med Platelet Count 299 150 - 400 10*3/uL 03/02/2025 9:12 AM PDT [facility] Dept of Lab Med RDW-CV 13.9 11.0 - 14.5 % 03/02/2025 9:12 AM PDT [facility] of Lab Med % Neutrophils 40 % 03/02/2025 11:59 AM PDT [facility] of Lab Med % Lymphocytes 52 % 03/02/2025 11:59 AM PDT [facility] of Lab Med % Monocytes 4 % 03/02/2025 11:59 AM PDT [facility] of Lab Med % Eosinophils 1 % 03/02/2025 11:59 AM PDT [facility] of Lab Med % Basophils 3 % 03/02/2025 11:59 AM PDT [facility] Dept of Lab Med % Immature Granulocytes 0 % 03/02/2025 11:59 AM PDT [facility] Dept of Lab Med Neutrophils 4.60 1.80 - 7.00 10*3/uL 03/02/2025 11:59 AM PDT [facility] Dept of Lab Med Absolute Lymphocyte Count 5.99(H) 1.00 - 4.80 10*3/uL 03/02/2025 11:59 AM PDT [facility] Dept of Lab Med Monocytes 0.46 0.00 - 0.80 10*3/uL 03/02/2025 11:59 AM PDT [facility] Dept of Lab Med Absolute Eosinophil Count 0.12 0.00 - 0.50 10*3/uL 03/02/2025 11:59 AM PDT [facility] Dept of Lab Med Basophils 0.35(H) 0.00 - 0.20 10*3/uL 03/02/2025 11:59 AM PDT [facility] Dept of Lab Med Immature Granulocytes 0.00 0.00 - 0.05 10*3/uL 03/02/2025 11:59 AM PDT [facility] Dept of Lab Med Nucleated RBC 0.00 0.00 10*3/uL 03/02/2025 11:59 AM PDT [facility] [facility] [place] [facility] % Nucleated RBC 0 % 11:59 AM PDT [facility] RBC Morphology See CBC - No additional morphologic findings 03/02/2025 11:59 AM PDT [facility] Med Platelet Morphology See Platelet value - No additional morphologic findings 03/02/2025 11:59 AM PDT [facility] Med WBC Morphology See DIFF - No additional morphologic findings 03/02/2025 11:59 AM PDT [facility] Gamma Glutamyl Transferase 20 0 - 55 U/L 03/02/2025 10:13 AM PDT [facility] Med Albumin 4.4 3.5 - 5.2 g/dL 03/02/2025 10:13 AM PDT [facility] Med Protein (Total) 7.7 6.0 - 8.2 g/dL 03/02/2025 10:13 AM PDT [facility] Med Bilirubin (Total) 0.4 0.2 - 1.3 mg/dL 03/02/2025 10:13 AM PDT [facility] Med Bilirubin (Direct) 0.1 0.0 - 0.3 mg/dL 03/02/2025 10:13 AM PDT [facility] Med Alkaline Phosphatase (Total) 73 38 - 172 U/L 03/02/2025 10:13 AM PDT [facility] AST (GOT) 17 9 - 38 U/L 03/02/2025 10:13 AM PDT [facility] ALT (GPT) 13 7 - 33 U/L 03/02/2025 10:13 AM PDT [facility] Med Magnesium 1.8 1.8 - 2.4 mg/dL 03/02/2025 10:13 AM PDT [facility] Med Phosphate 3.6 2.5 - 4.5 mg/dL 03/02/2025 10:13 AM PDT [facility] Med Prothrombin Time Patient 14.1 10.7 - 15.6 s 03/02/2025 9:26 AM PDT [facility] Med Prothrombin INR 1.0 0.8 - 1.3 03/02/2025 9:26 AM PDT [facility] of [facility] Med Blood 03/02/2025 8:24 AM PDT us Chandu Salazar MD LAB BLOOD ORDERABLES Final Resul t Performing Organization Address [facility]/ZIP Co de Phone Number [facility] DEPT OF LAB MED [address] [facility] [id number] [place] [address] [facility] Dept of [facility] Med [address] [facility] [address] [place] [address] * (ABNORMAL) Hemoglobin A1C, HPLC (03/02/2025 8:24 AM PDT) Hemoglobin A1C 7.1(H) 4.0 - 5.6 % 03/02/2025 2:49 PM PDT [facility] Lab Med Comment: Please Note: Prediabetes: 5.7 - 6.4 Diabetes: >6.4 Glycemic control for adults with diabetes: <7.0 Blood 03/02/2025 8:24 AM PDT us Chandu Salazar MD LAB BLOOD ORDERABLES Final Resul t [facility] LAB MED [address] [place] [id number], [address] [place] [address] [facility] Lab Med [address] [place] [address], [address] [place] [address] * Lipid Panel (03/02/2025 8:24 AM PDT) Total Cholesterol 171 <200 mg/dL 025 10:13 AM PDT [facility] Dept of Lab Med Triglyceride 145 <150 mg/dL 03/02/2025 10:13 AM PDT [facility] Dept of Lab Med HDL Cholesterol 64 >39 mg/dL 10:13 AM PDT [facility] of Lab Med Non-HDL Cholesterol 107 0 - 159 mg/dL 03/02/2025 10:13 AM PDT [facility] LDL Cholesterol, NIH Equation 82 <130 mg/dL 03/02/2025 10:13 AM PDT [facility] Cholesterol/HDL Ratio 2.7 03/02/2025 10:13 AM PDT [facility] Lipid Panel, Additional Info. (NOTE) 03/02/2025 10:13 AM PDT [facility] Dept of Lab Med Comment: For complete information to help interpret the lipid panel, please use the National Cholesterol Education Program (NCEP) guideline based reference range comments found here: https://testguide.labmed..[facility]/guideline/lipid_testing Blood 03/02/2025 8:24 AM PDT Chandu Salazar MD LAB BLOOD ORDERABLES Final Resul t [facility] DEPT OF LAB MED [address] [facility] [address] [place] [id number] [place] [address] [facility] [address] [facility] [place] [address] [place] [address] * Protein/Creatinine Ratio, Random Urine (03/02/2025 8:17 AM PDT) Protein (Total), Urine 14 mg/dL 03/02/2025 12:18 PM PDT [facility] Dept of Lab Med Creatinine/Unit , Urine 177 mg/dL 03/02/2025 12:18 PM PDT [facility] Dept of Lab Med Protein/Creatin ine Ratio <0.2 <0.2 03/02/2025 12:18 PM PDT [facility] Dept of Lab Med Comment:Results and referenc e range are reported in mg protein/mg creatinine. 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
--- OUTSIDE RECORDS SUMMARY | 2025-05-06 06:16 | EXTERNAL MEDICAL SUMMARY RPT ---
Author Organization [facility] [address] [place] [address] Care Team Providers Care Bookkeeper Name Role Phone Domenico Guerrero MD Primary Care Provider [phone] Transplant Episode Liver Recipient [facility] ([place], [place]) - JOSAFAT Transplanted on 05/14/2007 Marked as Active Follow-up on 05/14/2007 Liver CoordinatorPost-Liver Rn Coordinator Phone: N/A Fax: N/A Email: N/A Transplanted Elsewhere: Center not on file Coordinator: Phone: Fax: Infection History Noted Survival Infection Treatment Organism Resolved 06/19/2017 10 years 1 month History of hepatitis C Care Team Name Role Phone Fax Email Post-Liver Rn Coordinator Liver Coordinator N/A N/A N/A Zonia Harrison MD Transplant Advertising Photographer [phone] N/A Tanja Rangel MD Referring Physician [phone] N/A Suzette Hamlin RN Post-Transplant Nurse Coordinator N/A N/A N/A Events Post-Transplant Pre-Transplant Transplanted: 05/14/2007
== END 2025-05-01 13:15 | disposition home health service (06) | DRG 603 ==
LOC: ED 08:30 → MS3 12:32
PROVIDERS: ADMIT Student in an Organized Health Care Education/Training Program; ATTEND Student in an Organized Health Care Education/Training Program